=== PATIENT | female | born 1950 | race Caucasian/White ===

== ENCOUNTER 2016-09-21 06:50 | Day surgery (SDC) | payer OTHER ==
[2016-09-21 08:32] LABS: APTT 27.4 SEC (23.0-38.0); INR 1.07 (0.83-1.16); PROTIME(PATIENT) 13.8 SEC (12.0-15.0)
[2016-09-21] MEDS ORDERED: fentaNYL 100 MCG/2 ML INJ ONE (08:43)
[2016-09-21] MEDS ORDERED: MIDAZOLAM 2 MG/2 ML VIAL ONE (08:44)
[2016-09-21] MEDS ORDERED: IOPAMIDOL (ISOVUE-300) 100 ML BTL IV ONE (10:10)
== END 2016-09-21 11:38 | disposition home or self-care (01) ==
LOC: FIMAGING 06:50
PROVIDERS: ATTEND Radiology Diagnostic Radiology
PROC: 0FB Hepatobiliary System and Pancreas, Excision (ICD-10-PCS; principal; 2016-09-21 10:05)
DX: B19.10 Unspecified viral hepatitis B without hepatic coma (principal); K75.81 Nonalcoholic steatohepatitis (NASH); R10.84 Generalized abdominal pain
CPT/HCPCS: 36011; 37200; 75970; 76705; 99152; C1769; C1894; J1644; J2250; J3010; Q9967

== ENCOUNTER 2016-09-22 15:59 | Inpatient (IN) | payer OTHER ==
[2016-09-22] MEDS ORDERED: IOPAMIDOL (ISOVUE-370) 150 ML BTL IV ONE (16:13)
[2016-09-22 18:46] LABS: % IMMATURE GRANULYOCYTES 0.2 % (0.0-1.1); ABSOLUTE IMMATURE GRANULOCYTES 0.03 10^3/uL (0.00-0.10); ADD DIFF? NO; ADD MORPH? NO; ADD SCAN? NO; ATYPICAL LYMPHOCYTE FLAG 0 (0-99); FRAGMENT RBC FLAG 0 (0-99); HEMATOCRIT 46.2 % (38.0-47.0); HEMOGLOBIN 16.3 g/dL (12.6-16.3); LEFT SHIFT FLG 0 (0-99); LIPEMIA HEMOLYSIS FLAG 90 (0-99); MEAN CELL HEMOGLOBIN 30.8 pg (27.9-34.1); MEAN CELL HEMOGLOBIN CONCENTR. 35.3 g/dL (32.4-36.7); MEAN CELL VOLUME 87.3 fL (81.5-99.8); PLATELET CLUMPS FLAG 10 (0-99); PLATELET COUNT 195 10^3/uL (150-400); RED BLOOD CELL COUNT 5.29 10^6/uL (4.18-5.33); RED CELL DISTRIBUTION WIDTH 13.8 % (11.5-15.2)
[2016-09-22 18:58] LABS: INR 1.02 (0.83-1.16); PROTIME(PATIENT) 13.3 SEC (12.0-15.0)
[2016-09-22 18:59] LABS: APTT 24.5 SEC (23.0-38.0)
[2016-09-22] MEDS ORDERED: NS 1,000 ML IV ONE (19:02)
[2016-09-22 19:03] LABS: ALANINE AMINOTRANSFERASE 205 IU/L (9-52); ALBUMIN 4.3 g/dL (3.5-5.0); ALKALINE PHOSPHATASE 150 IU/L (38-126); ANION GAP 17 mEq/L (8-16); ASPARTATE AMINOTRANSFERASE 297 IU/L (14-46); BILIRUBIN,TOTAL 4.2 mg/dL (0.1-1.4); BILIRUBIN-CONJUGATED 3.2 mg/dL (0.0-0.5); CALCIUM 9.9 mg/dL (8.5-10.4); CARBON DIOXIDE 24 mEq/l (22-31); CHLORIDE 98 mEq/L (97-110); GLOMERULAR FILTRATION RATE 55; GLUCOSE 217 mg/dL (70-100); POTASSIUM 3.4 mEq/L (3.5-5.2); SODIUM 139 mEq/L (134-144); TOTAL PROTEIN 7.8 g/dL (6.3-8.2)
[2016-09-22] MEDS ORDERED: HYDROmorphONE/DILAUDID 1 MG/ML SYR IVP PRN ×2 (19:09→19:24)
[2016-09-22] MEDS ORDERED: NS 1,000 ML IV SCH (19:15)
[2016-09-22] MEDS ORDERED: ACETAMINOPHEN 650 MG SUPP PR PRN (19:24)
[2016-09-22] MEDS ORDERED: PROMETHAZINE HCL 25 MG/ML INJ IVP PRN (19:24)
[2016-09-22] MEDS ORDERED: D50W 25 GM/50 ML SYR IVP PRN (19:26)
[2016-09-22] MEDS ORDERED: PROTOCOL POTASSIUM 1 DOSE MISC PRN (19:26)
[2016-09-22] MEDS ORDERED: NALOXONE HCL 0.4 MG/ML INJ IVP PRN (19:59)
[2016-09-22] MEDS: HYDROmorphONE/DILAUDID 6 MG/30 ML PCA IV PRN (20:11)
--- NOTE | 2016-09-22 20:21 | GHP ---
DATE OF ADMISSION: 09/22/2016 CHIEF COMPLAINT: Abdominal pain. HISTORY: The patient is a 66-year-old female with a history of autoimmune cholangitis and hepatitis C. Dr. Calles ordered a transjugular liver biopsy which was performed yesterday by Dr. Metz. This was for routine staging of her hepatitis C. The procedure went without any complication, and she fe lt fine all the way through this morning. She ate breakfast without any difficulty. At 11 a.m. thi s morning, she developed acute onset of severe 10/10 abdominal pain. This is epigastric. It does n ot radiate to her back. It is constant and severe. She started vomiting profusely. She called [facility] and Dr. Lopez brought her in for a CT scan to rule out bleeding complication. CT was negative for any type of hematoma. He also did a CTA to rule out active hepatic bleeding o r a traumatic pseudoaneurysm. Incidentally, her CAT scan did show acute pancreatitis. At that poin t, I was contacted by Dr. Lopez to take the patient for indirect admission. When I see the patient, she is lying in bed, absolutely writhing in pain, completely miserable. Can not sit still because she is so uncomfortable. She had recently developed diarrhea, abdominal cramp ing and bloating and this was part of her workup she was pursuing with Dr. Calles. Her last Vgift copy was a few years ago. The chronic symptoms she has developed are nothing like the pain she is h aving today. PAST MEDICAL HISTORY: 1. Autoimmune cholangitis. 2. Diabetes type 2. 3. Hepatitis C acquired via blood transfusion at the time of . PAST SURGICAL HISTORY: . MEDICATIONS: Please see computer record for full detailed list. ALLERGIES: Sulfa, latex and hydrocodone. SOCIAL HISTORY: No smoking. No alcohol. She lives with her . REVIEW OF SYSTEMS: Complete review of systems obtained. Review of systems negative regarding const itutional, HEENT, GI, pulmonary, vascular, , hematology, skin, muscular, endocrine, psych, except for positives and negatives as noted in HPI. FAMILY HISTORY: Reviewed. Father of a stroke and was an alcoholic. PHYSICAL EXAMINATION: GENERAL: Well-developed well-nourished female, in severe abdominal pain. Wr ithing in the bed. VITAL SIGNS: Temperature is 36.6, pulse 59, blood pressure 163/87, saturating 9 9% on room air. EYES: Normal conjunctivae. Pupils equal and react to light. ENT: Normal ears an d nose. Hearing intact. Normal lips and teeth. Oropharynx moist. NECK: Trachea midline. No thy romegaly. CHEST: Normal respiratory effort. LUNGS: Clear to auscultation bilaterally. CARDIOVAS CULAR: Regular rate and rhythm. No murmur. No lower extremity edema. ABDOMEN: Soft, very tender in the epigastrium. No rebound or guarding. No hepatosplenomegaly. SKIN: Warm, dry, intact with out rash. MUSCULOSKELETAL: No cyanosis or clubbing. Strength 5/5 upper and lower extremities. NE URO: Cranial nerves intact. Normal sensation to light touch. PSYCH: Alert and oriented x3. Norm al mood and affect. Normal judgment. Normal memory. LABS: White count 13.02, hematocrit 46.2, platelets 195. Sodium 139, potassium 3.4, chloride 98, b icarb 24, BUN 22, creatinine 1.0, glucose 217. LFTs show a bili of 4.2, which is conjugated. AST 297. ALT is 205. Lactate 4.8. INR is 1.02. Li pase is 18,579. CT scan of the abdomen and pelvis shows acute pancreatitis. There is no subcapsular hematoma. Ther e was no pseudoaneurysm. ASSESSMENT AND PLAN: 1. Acute pancreatitis. It is unclear how this relates to her recent liver biopsy. Dr. Lopez does not think there is any correlation. I query whether she may have some postprocedural swelling in h er liver that may be causing this obstruction. She does have increased LFTs. There is no evidence of any bleeding. I will check an ultrasound to evaluate her gallbladder. Could also consider an MR CP. Will administer bowel rest, aggressive IV fluids and IV Dilaudid for pain control. 2. Autoimmune cholangitis. We will continue her Imuran and Ursodiol. 3. Hepatitis C. Liver biopsy performed yesterday, result is pending. 4. Increased lactate. I suspect hypoperfusion secondary to her pancreatitis. I do not think she i s septic. She will be hydrated relatively aggressively with IV fluids with serial lactates followed . 5. Diabetes type 2. Will place her on insulin sliding scale. CODE STATUS: Full. ADMISSION STATUS: 1. Will admit to inpatient as she is medically complex. Anticipate greater than 2 midnights. 2. DVT prophylaxis. She is high risk. I will place her on Lovenox. /[id number]/MODL
[2016-09-22] MEDS: INSULIN REGULAR HUMAN 100 UNIT/ML SC SCH (20:28)
[2016-09-22] MEDS: URSODIOL 300 MG CAP PO SCH (20:29)
[2016-09-22] MEDS ORDERED: POTASSIUM CL 10 MEQ TAB PO ONE (20:52)
[2016-09-22] MEDS ORDERED: FAMOTIDINE 20 MG/NACL 50 ML IV SCH (21:00)
[2016-09-22] MEDS: NS 1,000 ML IV SCH (21:53)
[2016-09-22 23:31] LABS: POTASSIUM 3.5 mEq/L (3.5-5.2)
[2016-09-23] MEDS: NS 1,000 ML IV SCH ×3 (03:43→20:39)
[2016-09-23 06:03] LABS: % IMMATURE GRANULYOCYTES 0.2 % (0.0-1.1); ABSOLUTE IMMATURE GRANULOCYTES 0.04 10^3/uL (0.00-0.10); ADD DIFF? NO; ADD MORPH? NO; ADD SCAN? NO; ATYPICAL LYMPHOCYTE FLAG 0 (0-99); FRAGMENT RBC FLAG 0 (0-99); HEMATOCRIT 43.6 % (38.0-47.0); HEMOGLOBIN 15.1 g/dL (12.6-16.3); LEFT SHIFT FLG 40 (0-99); LIPEMIA HEMOLYSIS FLAG 90 (0-99); MEAN CELL HEMOGLOBIN 30.6 pg (27.9-34.1); MEAN CELL HEMOGLOBIN CONCENTR. 34.6 g/dL (32.4-36.7); MEAN CELL VOLUME 88.4 fL (81.5-99.8); MEAN PLATELET VOLUME 9.7 fL (8.7-11.7); PLATELET CLUMPS FLAG 0 (0-99); PLATELET COUNT 154 10^3/uL (150-400); RED BLOOD CELL COUNT 4.93 10^6/uL (4.18-5.33); RED CELL DISTRIBUTION WIDTH 14.3 % (11.5-15.2)
[2016-09-23 06:18] LABS: ALANINE AMINOTRANSFERASE 171 IU/L (9-52); ALBUMIN 3.6 g/dL (3.5-5.0); ALKALINE PHOSPHATASE 109 IU/L (38-126); ANION GAP 12 mEq/L (8-16); ASPARTATE AMINOTRANSFERASE 242 IU/L (14-46); BILIRUBIN,TOTAL 5.1 mg/dL (0.1-1.4); BILIRUBIN-CONJUGATED 4.2 mg/dL (0.0-0.5); BILIRUBIN-UNCONJUGATED 0.9 mg/dL (0.0-1.1); CALCIUM 7.3 mg/dL (8.5-10.4); CARBON DIOXIDE 24 mEq/l (22-31); CHLORIDE 109 mEq/L (97-110); GLOMERULAR FILTRATION RATE 55; GLUCOSE 199 mg/dL (70-100); SODIUM 145 mEq/L (134-144); TOTAL PROTEIN 6.8 g/dL (6.3-8.2)
[2016-09-23] MEDS ORDERED: ENOXAPARIN 40 MG/0.4 ML SYR SC SCH (09:00)
[2016-09-23] MEDS: HYDROmorphONE/DILAUDID 6 MG/30 ML PCA IV PRN (09:04)
[2016-09-23] MEDS: URSODIOL 300 MG CAP PO SCH ×3 (09:07→20:42)
[2016-09-23] MEDS: azaTHIOprine 50 MG TAB PO SCH (09:07)
[2016-09-23] MEDS: PANTOPRAZOLE SODIUM 40 MG in NS 100 ML IV SCH (09:07)
[2016-09-23] MEDS: INSULIN REGULAR HUMAN 100 UNIT/ML SC SCH ×3 (09:32→18:21)
[2016-09-23] MEDS ORDERED: GADOBUTROL 10 ML VIAL IVP ONE (09:45)
--- NOTE | 2016-09-23 17:57 | HOSPPROG ---
Hospitalist Progress Note Assessment/Plan: Acute pancreatitis - bilirubin to 5.1, no CBD dilation or e/o obstruction on MRI. She had a nl u/s day of liver biopsy without gallstones, but now has ? sludge in GB on MR. Query hemobilia s/p liver biopsy which may have made it's way into CBD and contributed to pancreatits. No etoh hx. +h/o autoimmune cholangitis, seems unlikely this would flare acutely after liver biopsy. No fevers. However, rising wbc's, will cover with Zosyn for now. GI consulted, Dr. Contreras to see pt tomorrow. Continue NPO, IVF's, pain control. Check TG's in am, trend LFT's. Autoimmune cholangitis - this might increase her risk for autoimmune pancreatitis, though it seems that is usually a chronic scenario. Cont Imuran and Ursodiol. Await further GI recs. Hep C - acquired during blood transfusion during C-S. Followed by Dr. Solorio. DM - bg's fairly well controlled. Glyburide held while NPO, cont q6h SSI. 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 Also, suspect VIRA as she snores and has daytime somnolence. Needs outpt sleep study. DVT PPLX- Lovenox Full code Dispo - cont inpt Subjective: Pt feels a bit better, pain finally controlled. No N/V today. No fevers. She is thirsty, remains NPO. She c/o daytime somnolence and snoring before this event. Objective: Vital Signs Temp Pulse Resp BP Pulse Ox 36.8 C 103 H 16 118/70 92 09/23/16 16:00 09/23/16 16:00 09/23/16 16:00 09/23/16 16:00 09/23/16 16:00 Laboratory Results 09/23/16 05:38 09/23/16 05:38 09/22/16 09/23/16 09/24/16 05:59 05:59 05:59 Intake Total 2412 Output Total 400 Balance -400 2412 PT 13.3 SEC (12.0-15.0) 09/22/16 18:35 INR 1.02 (0.83-1.16) 09/22/16 18:35 - Physical Exam Constitutional: no apparent distress Eyes: PERRL Ears, Nose, Mouth, Throat: moist mucous membranes Cardiovascular: regular rate and rhythym Respiratory: no respiratory distress, clear to auscultation (+epigastric and RUQ tenderness with voluntary guarding, no rigidity) Gastrointestinal: normoactive bowel sounds Skin: warm Musculoskeletal: full muscle strength Neurologic: AAOx3 Psychiatric: interacting appropriately ICD10 Worksheet Patient Problems: Problems Problem Status Onset Pancreatitis Acute - ICD10 Problem Qualifiers (1) Pancreatitis Qualifiers: Chronicity: acute Pancreatitis type: unspecified pancreatitis type Acute pancreatitis complication: A
[2016-09-23] MEDS: PIPERACILLIN/TAZO 3.375 GM/DEX 50 ML IV SCH (18:14)
[2016-09-23 19:50] LABS: POTASSIUM 4.5 mEq/L (3.5-5.2)
[2016-09-24] MEDS: INSULIN REGULAR HUMAN 100 UNIT/ML SC SCH ×5 (00:10→21:01)
[2016-09-24] MEDS: PIPERACILLIN/TAZO 3.375 GM/DEX 50 ML IV SCH ×3 (00:30→14:27)
[2016-09-24] MEDS: NS 1,000 ML IV SCH ×2 (03:14→19:36)
[2016-09-24] MEDS: HYDROmorphONE/DILAUDID 6 MG/30 ML PCA IV PRN ×2 (03:46→16:29)
[2016-09-24 06:07] LABS: ALANINE AMINOTRANSFERASE 108 IU/L (9-52); ALBUMIN 2.8 g/dL (3.5-5.0); ALKALINE PHOSPHATASE 57 IU/L (38-126); ANION GAP 10 mEq/L (8-16); ASPARTATE AMINOTRANSFERASE 183 IU/L (14-46); BILIRUBIN,TOTAL 7.7 mg/dL (0.1-1.4); CARBON DIOXIDE 18 mEq/l (22-31); CHLORIDE 113 mEq/L (97-110); CREATININE 2.2 mg/dL (0.6-1.0); GLOMERULAR FILTRATION RATE 22; GLUCOSE 206 mg/dL (70-100); POTASSIUM 4.2 mEq/L (3.5-5.2); SODIUM 141 mEq/L (134-144); TOTAL PROTEIN 5.8 g/dL (6.3-8.2); TRIGLYCERIDE 197 mg/dL (35-135)
[2016-09-24 06:08] LABS: ADD DIFF? YES; ADD MORPH? NO; ATYPICAL LYMPHOCYTE FLAG 0 (0-99); FRAGMENT RBC FLAG 0 (0-99); HEMATOCRIT 38.1 % (38.0-47.0); HEMOGLOBIN 12.8 g/dL (12.6-16.3); LIPEMIA HEMOLYSIS FLAG 80 (0-99); MEAN CELL HEMOGLOBIN 30.8 pg (27.9-34.1); MEAN CELL HEMOGLOBIN CONCENTR. 33.6 g/dL (32.4-36.7); MEAN CELL VOLUME 91.8 fL (81.5-99.8); MEAN PLATELET VOLUME 10.3 fL (8.7-11.7); PLATELET CLUMPS FLAG 0 (0-99); PLATELET COUNT 131 10^3/uL (150-400); RED BLOOD CELL COUNT 4.15 10^6/uL (4.18-5.33); RED CELL DISTRIBUTION WIDTH 15.6 % (11.5-15.2)
[2016-09-24 06:11] LABS: ADD SCAN? NO; LEFT SHIFT FLG 270 (0-99)
[2016-09-24 06:12] LABS: CALCIUM 4.2 mg/dL (8.5-10.4)
[2016-09-24 06:38] LABS: BILIRUBIN-CONJUGATED 6.9 mg/dL (0.0-0.5); BILIRUBIN-UNCONJUGATED 0.8 mg/dL (0.0-1.1)
[2016-09-24] MEDS ORDERED: PROTOCOL CALCIUM 1 DOSE IV PRN (07:05)
[2016-09-24 07:23] LABS: PLATELET ESTIMATE DECREASED (ADEQ); POLYCHROMASIA 1+
[2016-09-24 08:29] LABS: IONIZED CALCIUM 0.63 MMOL/L (1.12-1.30)
[2016-09-24] MEDS ORDERED: CALCIUM GLUCONATE 2 GM in NS 50 ML IV ONE ×3 (08:35→22:16)
[2016-09-24] MEDS: URSODIOL 300 MG CAP PO SCH ×2 (08:56→21:07)
[2016-09-24] MEDS: PANTOPRAZOLE SODIUM 40 MG in NS 100 ML IV SCH (08:58)
[2016-09-24] MEDS: azaTHIOprine 50 MG TAB PO SCH ×2 (09:05→09:32)
[2016-09-24] MEDS ORDERED: NS 1,000 ML IV ONE (10:09)
--- NOTE | 2016-09-24 10:15 | HOSPPROG ---
Hospitalist Progress Note Assessment/Plan: Acute pancreatitis - bili continues to rise, up to 7.7, no CBD dilation or e/o obstruction on MRI. Stat MRCP this am. She had a nl u/s day of liver biopsy without gallstones, but now has ?sludge in GB on MR. Query hemobilia s/p liver biopsy which may have made it's way into CBD and contributed to pancreatitis. No etoh hx. TG's okay. +h/o autoimmune cholangitis, seems unlikely this would flare acutely after liver biopsy. No fevers. However, rising wbc's, continue Zosyn. GI consulted, discussed case with Dr. Contreras. Continue NPO, IVF's, pain control. Cont to trend LFT's. ANISH - Cr up to 2.2 ?pre-renal vs ATN. She is 5 liters positive, will bolus again and increase fluid rate to 250/hr. Cont NS bolus to achieve UOP >0.5 cc's /kg/hr. Check urine studies to calculate FeNa. Autoimmune cholangitis - this might increase her risk for autoimmune pancreatitis, though it seems that is usually a chronic scenario. Hold Imuran for now as can cause pancreatitis in 2.8% of pts per GI. Hep C - acquired during blood transfusion during C-S. Followed by Dr. Solorio. DM - bg's fairly well controlled. Glyburide held while NPO, cont q6h SSI. 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 Also, suspect VIRA as she snores and has daytime somnolence. Needs outpt sleep study. Personally reviewed CXR yesterday, no e/o pulmonary edema or infiltrate. +underexpansion and linear atelectasis, start IS. Hypocalcemia - Ca dropped precipitously, IV calcium gluconate started, protocol ordered. Transfer to SDU, telemetry. DVT PPLX- Change to heparin given ANISH Full code Dispo - cont inpt Objective: Vital Signs Temp Pulse Resp BP Pulse Ox 36.6 C 101 H 18 109/66 91 L 09/24/16 07:39 09/24/16 07:39 09/24/16 07:39 09/24/16 07:39 09/24/16 07:39 Laboratory Results 09/24/16 05:41 09/24/16 05:41 09/23/16 09/24/16 09/25/16 05:59 05:59 05:59 Intake Total 5857 Output Total 400 400 Balance -400 5457 PT 13.3 SEC (12.0-15.0) 09/22/16 18:35 INR 1.02 (0.83-1.16) 09/22/16 18:35 - Physical Exam Constitutional: no apparent distress Eyes: PERRL Ears, Nose, Mouth, Throat: moist mucous membranes Cardiovascular: tachycardia Respiratory: no respiratory distress, clear to auscultation Gastrointestinal: other (soft, mild distention, +epigastric and RUQ tenderness without r/r/g) Skin: warm Musculoskeletal: full muscle strength Neurologic: AAOx3 Psychiatric: interacting appropriately ICD10 Worksheet Patient Problems: Problems Problem Status Onset Pancreatitis Acute - ICD10 Problem Qualifiers (1) Pancreatitis Qualifiers: Chronicity: acute Pancreatitis type: unspecified pancreatitis type Acute pancreatitis complication: A
--- NOTE | 2016-09-24 10:31 | GCON ---
GI INPATIENT CONSULTATION DATE OF CONSULTATION: 09/24/2016 I was kindly requested to see this patient by Dr. Tana Velasco in consultation for a chief complaint of pancreatitis. She is a 66-year-old white female who underwent a transjugular liver biopsy by Dr. Sahara Metz on September 20, 2016. She developed significant epigastric abdominal pain and presented to the emergency department. She describes the pain as severe, constant. There was some vomiting involved initially. She has a past history of autoimmune disease of the liver. She believes it is autoimmune cholangitis, and indeed, several of her initial notes by her quarter backer, Dr. Carlos Calles, mention this as well. Then, Dr. Calles's future notes actually state autoimmune hepatitis, but it is unclear if this is the case. She also has hepatic steatosis. She was last seen by Dr. Calles on September 04, 2016. Because of continued abnormal liver tests, the above biopsy was ordered. For the above problem, she has been on azathioprine 50 mg daily for many years, dating back even before 2012. Today, she states she is feeling somewhat better, in terms of her abdominal pain. PAST MEDICAL HISTORY: 1. As above. 2. Diabetes mellitus. 3. Some past mention of possible gastroparesis, where Reglan as needed helped. 4. Otherwise, noncontributory in pay. MEDICATIONS: Outpatient medications include the above. Inpatient medications include Ursodiol, Imuran, insulin, Zosyn, IV fluids, potassium protocol, pantoprazole 40 mg IV daily. ALLERGIES: Include sulfa, latex and hydrocodone. SOCIAL HISTORY: She denies alcohol. FAMILY HISTORY: Negative for similar abdominal pain. REVIEW OF SYSTEMS: Positive pertinent review of systems as per my HPI; otherwise, a complete review of systems is negative. PHYSICAL EXAM: CONSTITUTIONAL: Relatively nontoxic. SKIN: Warm, dry. EYES: Pupils equal, round, reactive to light and accommodation. ENMT: Oropharynx without masses. Moist mucosa. CARDIOVASCULAR: Normal S2. Normal PMI. RESPIRATORY: Clear to auscultation and percussion anteriorly. GASTROINTESTINAL : The abdomen is soft with some epigastric tenderness, but only moderate. NEUROLOGIC: Grossly nonfocal, with cranial nerves grossly intact. PSYCHIATRIC : Orientation, insight appropriate. MUSCULOSKELETAL: Strength is grossly normal throughout, with normal station. LABORATORIES: Baseline AST and ALT of 115 and 105, with an alkaline phosphatase of 139. This was on August 31, 2016. Now on her liver tests, her bilirubin has been increasing from 5.1 yesterday to 7.7. Alkaline phosphatase was 150 on admission, but now normal. AST and ALT yesterday were 242 and 171. Lipase on admission 18,000 and then 12,000, and today 6605. Creatinine has increased to 2.2. Calcium is decreased to 4.2. Glucose 206. White count has gone from 13,000 to 17,000 to 27,000 today. Normal coags. Liver biopsy pathology pending. Triglycerides 197. Further prior outpatient labs include an EARNESTINE and antismooth muscle antibody that were negative. H pylori antibody negative. In 2008, hepatitis C antibody negative. IMAGING: Ultrasound prior to liver biopsy was normal. MRI of the abdomen was performed yesterday, but no MRCP component was done. The MRI shows now a filling defect in the gallbladder. The intra and extrahepatic biliary ducts are essentially normal. There is a possible linear finding seen in the common bile duct. Diffuse pancreatitis. Fatty liver. September 22, 2016 CT of the abdomen and pelvis with IV contrast did not show obvious liver bleeding. ASSESSMENT: 1. Pancreatitis. Although her lipase is better today, some other worrisome signs, which may speak for a continued severe systemic process. This includes a drop in her calcium, increase in her creatinine, some increase in her oxygen requirements and increased bilirubin. In terms of etiology for her pancreatitis, with the temporal relationship of a transjugular liver biopsy just prior, suspect hemobilia. This would also potentially explain why the gallbladder was normal on a prebiopsy ultrasound, but now shows a filling defect on MRI (which could represent some blood). Other possibilities for pancreatitis are much less likely. If her chronic diagnosis is indeed autoimmune cholangitis, there can sometimes be associated autoimmune pancreatitis. However, her MRI findings of a diffuse pancreatitis would be atypical for this. Azathioprine can cause pancreatitis, but this would also be less likely, as she has been on this for many, many years. Doubt another type of cause, such as common bile duct stone missed on imaging. 2. Autoimmune cholangitis versus autoimmune hepatitis. 3. Of note, there is mention in the chart about her being hepatitis C positive. However, I see no mention of that in any of Dr. Clales's notes, including his most recent note in August. In 2008, hepatitis C antibody was negative. PLAN: 1. Stat MRCP to see if hemobilia present in the common bile duct. 2. Will stop her azathioprine, although unlikely to be the culprit. 3. Will check an IgG4, but doubt autoimmune pancreatitis. 4. I will discuss the above with her hospitalist. With some worsening signs of pancreatitis, she might require transfer to telemetry or ICU. Further management of her increased creatinine, low calcium, oxygen needs, etc., as per the hospitalist. 5. If her MRCP is negative, she might require empiric IV steroids for the remote possibility of autoimmune pancreatitis. If that were the case, she would require more aggressive control of her diabetes, as per the hospitalist. 6. Decisions about whether she will require urgent ERCP for therapy will depend on her MRCP result, clinical status, etc. Certainly, it would be high risk to perform in the midst of significant pancreatitis. With her lipase now decreasing, it would also potentially not be beneficial. Thank you for allowing me to help in the management of this patient. Addendum: MRCP without obvious cbd filling defects (although some motion artifact); ducts without change. Hemobilia as the original cause is still most likely. However, with these findings, and the severity of her pancreatitis , will empirically treat her for now with I.V. steroids for possible autoimmune pancreatitis. With her DM, she will require more aggressive control of her glucose levels (as per the hospitalist service). /[id number]/MODL MTDD
[2016-09-24] MEDS: HEPARIN 5,000 UNIT/0.5 ML SYR SC SCH ×3 (10:52→22:43)
[2016-09-24] MEDS ORDERED: methylPREDNISolone SOD SUCC 40 MG/ML VIAL IVP STA (11:53)
[2016-09-24] MEDS: PIPERACILLIN/TAZO 2.25 GM/DEX 50 ML IV SCH ×2 (17:48→23:28)
[2016-09-24 18:12] LABS: IONIZED CALCIUM 0.65 MMOL/L (1.12-1.30)
[2016-09-24] MEDS ORDERED: ALTEPLASE 2 MG VIAL IVP PRN (18:13)
[2016-09-24 18:24] LABS: ANION GAP 11 mEq/L (8-16); CARBON DIOXIDE 16 mEq/l (22-31); CHLORIDE 110 mEq/L (97-110); CREATININE 3.3 mg/dL (0.6-1.0); GLOMERULAR FILTRATION RATE 14; GLUCOSE 178 mg/dL (70-100); POTASSIUM 4.9 mEq/L (3.5-5.2); SODIUM 137 mEq/L (134-144)
[2016-09-24 18:28] LABS: CALCIUM 4.1 mg/dL (8.5-10.4)
[2016-09-24] MEDS: methylPREDNISolone SOD SUCC 40 MG/ML VIAL IVP SCH (21:04)
[2016-09-24 22:15] LABS: IONIZED CALCIUM 0.67 MMOL/L (1.12-1.30)
[2016-09-25] MEDS ORDERED: ALBUTEROL 3 ML DEYVIAL ONE (01:21)
[2016-09-25] MEDS: NS 1,000 ML IV SCH ×2 (02:10→19:30)
[2016-09-25] MEDS ORDERED: CALCIUM GLUCONATE 2 GM in NS 50 ML IV ONE ×6 (02:22→22:27)
[2016-09-25 05:05] LABS: ADD DIFF? YES; ADD MORPH? NO; ATYPICAL LYMPHOCYTE FLAG 0 (0-99); FRAGMENT RBC FLAG 0 (0-99); HEMATOCRIT 33.3 % (38.0-47.0); LIPEMIA HEMOLYSIS FLAG 80 (0-99); MEAN CELL HEMOGLOBIN 30.8 pg (27.9-34.1); MEAN CELL VOLUME 93.3 fL (81.5-99.8); MEAN PLATELET VOLUME 10.8 fL (8.7-11.7); PLATELET CLUMPS FLAG 10 (0-99); PLATELET COUNT 118 10^3/uL (150-400); RED BLOOD CELL COUNT 3.57 10^6/uL (4.18-5.33); RED CELL DISTRIBUTION WIDTH 15.8 % (11.5-15.2)
[2016-09-25 05:13] LABS: ADD SCAN? NO; LEFT SHIFT FLG 290 (0-99)
[2016-09-25 05:23] LABS: ALANINE AMINOTRANSFERASE 87 IU/L (9-52); ALBUMIN 2.6 g/dL (3.5-5.0); ALKALINE PHOSPHATASE 41 IU/L (38-126); ANION GAP 13 mEq/L (8-16); ASPARTATE AMINOTRANSFERASE 140 IU/L (14-46); BILIRUBIN,TOTAL 4.6 mg/dL (0.1-1.4); CARBON DIOXIDE 15 mEq/l (22-31); CHLORIDE 111 mEq/L (97-110); CREATININE 4.2 mg/dL (0.6-1.0); GLOMERULAR FILTRATION RATE 11; GLUCOSE 141 mg/dL (70-100); POTASSIUM 4.5 mEq/L (3.5-5.2); SODIUM 139 mEq/L (134-144); TOTAL PROTEIN 5.4 g/dL (6.3-8.2)
[2016-09-25] MEDS: PIPERACILLIN/TAZO 2.25 GM/DEX 50 ML IV SCH ×4 (05:31→23:53)
[2016-09-25 05:46] LABS: MACROCYTES 1+; PLATELET ESTIMATE DECREASED (ADEQ)
[2016-09-25 05:47] LABS: POLYCHROMASIA 1+
[2016-09-25 06:10] LABS: BILIRUBIN-CONJUGATED 4.2 mg/dL (0.0-0.5); BILIRUBIN-UNCONJUGATED 0.4 mg/dL (0.0-1.1)
[2016-09-25] MEDS: IPRATROPIUM/ALBUTEROL 3 ML DEYVIAL IH SCH ×4 (06:20→22:15)
[2016-09-25 06:35] LABS: IONIZED CALCIUM 0.71 MMOL/L (1.12-1.30)
[2016-09-25 06:47] LABS: IONIZED CALCIUM 0.69 MMOL/L (1.12-1.30)
[2016-09-25] MEDS: HEPARIN 5,000 UNIT/0.5 ML SYR SC SCH ×3 (06:47→21:34)
[2016-09-25] MEDS: INSULIN REGULAR HUMAN 100 UNIT/ML SC SCH ×4 (07:51→20:16)
[2016-09-25] MEDS: methylPREDNISolone SOD SUCC 40 MG/ML VIAL IVP SCH ×2 (08:49→21:33)
[2016-09-25] MEDS: PANTOPRAZOLE SODIUM 40 MG in NS 100 ML IV SCH (09:26)
[2016-09-25] MEDS ORDERED: LIDOCAINE 1% 30 ML SDV ONE (09:50)
[2016-09-25] MEDS ORDERED: HEPARIN 50,000 UNIT/10 ML VIAL ONE (09:50)
[2016-09-25 10:12] LABS: IONIZED CALCIUM 0.78 MMOL/L (1.12-1.30)
--- NOTE | 2016-09-25 10:13 | SOAPPROG ---
THOMAS Progress Note Assessment/Plan: Assessment: 1. Pancreatitis. Improving, with decreased lipase, less pain. - cont NPO except for now; maybe can start clears tomorrow - recheck lipase AM - decrease empiric 'roids - no ERCP needed at this juncture - recheck LFTs tomorrow 2. Systemic sequelae from the above. Somewhat better, with decreased wbc count , etc. However, Cr increased. - recommend renal consult 3. Increased Cr. Plan: 09/25/16 10:10 Objective: Vital Signs Temp Pulse Resp BP Pulse Ox 36.7 C 92 22 H 106/49 L 93 09/25/16 07:40 09/25/16 07:40 09/25/16 07:40 09/25/16 07:40 09/25/16 07:40 Laboratory Results 09/25/16 04:20 09/25/16 04:20 09/24/16 09/25/16 09/26/16 05:59 05:59 05:59 Intake Total 5857 3006 Output Total 400 275 Balance 5457 6131 PT 13.3 SEC (12.0-15.0) 09/22/16 18:35 INR 1.02 (0.83-1.16) 09/22/16 18:35 ICD10 Worksheet Patient Problems: Problems Problem Status Onset Pancreatitis Acute
--- NOTE | 2016-09-25 10:19 | SOAPPROG ---
SOAP Progress Note Assessment/Plan: Assessment/Plan: 1. Pancreatitis. Improving, with decreased lipase, less pain. - cont NPO except for sips, etc., for now; maybe can start clears tomorrow - recheck lipase AM - decrease empiric 'roids - no ERCP needed at this juncture - recheck LFTs tomorrow 2. Systemic sequelae from the above. Somewhat better, with decreased wbc count , etc. However, Cr increased. - recommend renal consult 3. Of note, she does not have hepatitis C (or B). Please remove from her problem list. 09/25/16 10:16 Subjective: cc: pancreatitis Pain less than yesterday, but still "410". No vomiting, rigors, chills. Objective: Vital Signs Temp Pulse Resp BP Pulse Ox 36.7 C 92 22 H 106/49 L 93 09/25/16 07:40 09/25/16 07:40 09/25/16 07:40 09/25/16 07:40 09/25/16 07:40 Laboratory Results 09/25/16 04:20 09/25/16 04:20 09/24/16 09/25/16 09/26/16 05:59 05:59 05:59 Intake Total 5857 3006 Output Total 400 275 Balance 5457 2731 PT 13.3 SEC (12.0-15.0) 09/22/16 18:35 INR 1.02 (0.83-1.16) 09/22/16 18:35 IgG4 pending Liver bx pathology pending Physical Exam - Physical Exam General Appearance: WD/WN, alert, no apparent distress EENT: PERRL/EOMI, normal ENT inspection, pharynx normal, TMs normal Neck: non-tender, full range of motion, supple, normal inspection Respiratory: chest non-tender, lungs clear, normal breath sounds Cardiac/Chest: normal peripheral pulses, regular rate, rhythm Peripheral Pulses: 2+: carotid (R), carotid (L), femoral (R), femoral (L), dorsalis-pedis (R), dorsalis-pedis (L) Abdomen: normal bowel sounds, soft, No non-tender (Mild to moderate epigastric tenderness.) Pelvic Exam: deferred Rectal: deferred Back: Normal inspection Skin: normal color, warm/dry Lymphatic: no adenopathy Extremities: normal range of motion, non-tender, normal inspection, normal capillary refill Neuro/Psych: no motor/sensory deficits, alert, normal mood/affect, oriented x 3 ICD10 Worksheet Patient Problems: Problems Problem Status Onset Pancreatitis Acute
[2016-09-25] MEDS: URSODIOL 300 MG CAP PO SCH (10:57)
--- NOTE | 2016-09-25 11:21 | POSTOPPROG ---
Post Op Note Date of Operation: 09/25/16 Surgeon: Thierno Lopez Anesthesia: Local (Specify) Pre-op Diagnosis: Pancreatitis, renal failure Post-op Diagnosis: same Indication: same, and poor peripheral veins Procedure: 1. PICC 2. Temporary right jugular dialysis catheter Findings: good positions. 12 F Mahurkar dialysis catheter and PICC are ready to use. Inf/Abcess present in the surg proc area at time of surgery?: No
--- NOTE | 2016-09-25 12:28 | HOSPPROG ---
Hospitalist Progress Note Assessment/Plan: Acute severe pancreatitis - Precipitous Ca drop poor prognostic indicator, though improving now. Bili trending down, no CBD obstruction on MRCP, possible hemobilia vs clot in GB. She had a nl u/s day of liver biopsy without gallstones. Query hemobilia s/p liver biopsy which may have made it's way into CBD and contributed to pancreatitis. No etoh hx. TG's okay. +h/o autoimmune cholangitis, on steroids. No fevers. Continue Zosyn. GI following. Continue NPO, IVF's, pain control. Cont to trend LFT's. ANISH - Cr up to 4.5, FeNa 0.04%, suggesting poor perfusion / ATN in setting of severe pancreatitis. Aggressive volume resuscitation initially, though she has poor uop and is 3rd spacing, with O2 requirement up to 10 LPM yesterday. Renal consulted last night, dialysis catheter planned for today. Discussed case with Dr. Best, holding off on dialysis today, will attempt more fluids and reassess tomorrow. Metabolic acidosis in setting of ANISH - dialysis planned, defer bicarb to avoid worsening her hypocalcemia. Autoimmune cholangitis - this might increase her risk for autoimmune pancreatitis, though it seems that is usually a chronic scenario. Hold Imuran for now as can cause pancreatitis in 2.8% of pts per GI. Empiric steroids started per GI. DM - bg's fairly well controlled. Glyburide held while NPO, cont q6h SSI. May need to up-titrate on steroids. Hypoxemia - O2 requirement down to 5 LPM from 10 LPM yesterday. Likely multifactorial: aggressive volume overload in setting of severe pancreatitis, possible VIRA, opiate use, splinting due to abdominal pain. Needs outpt sleep study. Personally reviewed CXR this am, no e/o pulmonary edema or infiltrate. +underexpansion and linear atelectasis, cont IS, prn nebs. Hypocalcemia - frequent checks and Ca gluconate replacement, slowly improving. DVT PPLX- [facility] Full code Dispo - cont inpt Subjective: Pt feels a bit better today. More conversive, less pain. No fevers. No N/V. UOP improved a little, but still poor. Objective: Vital Signs Temp Pulse Resp BP Pulse Ox 37.0 C 92 24 H 109/55 L 92 03/07/17 11:40 09/25/16 11:40 09/25/16 11:40 09/25/16 11:40 09/25/16 11:40 Laboratory Results 09/25/16 04:20 09/25/16 04:20 09/24/16 09/25/16 09/26/16 05:59 05:59 05:59 Intake Total 5857 3006 Output Total 400 275 Balance 5457 2731 PT 13.3 SEC (12.0-15.0) 09/22/16 18:35 INR 1.02 (0.83-1.16) 09/22/16 18:35 - Physical Exam Constitutional: no apparent distress Eyes: PERRL Ears, Nose, Mouth, Throat: moist mucous membranes Cardiovascular: regular rate and rhythym Respiratory: no respiratory distress, other (bibasilar faint crackles, decreased air exchange, poor inspiratory effort) Gastrointestinal: normoactive bowel sounds, tenderness Skin: warm Musculoskeletal: full muscle strength Neurologic: AAOx3 Psychiatric: interacting appropriately ICD10 Worksheet Patient Problems: Problems Problem Status Onset Pancreatitis Acute - ICD10 Problem Qualifiers (1) Pancreatitis Qualifiers: Chronicity: acute Pancreatitis type: unspecified pancreatitis type Acute pancreatitis complication: A
[2016-09-25 14:16] LABS: IONIZED CALCIUM 0.79 MMOL/L (1.12-1.30)
[2016-09-25] MEDS: HYDROmorphONE/DILAUDID 6 MG/30 ML PCA IV PRN (15:02)
[2016-09-25] MEDS: diphenhydrAMINE 25 MG CAP PO PRN ×2 (15:20→21:32)
--- NOTE | 2016-09-25 17:57 | GCON ---
PULMONARY CRITICAL CARE CONSULTATION. DATE OF CONSULTATION: 09/25/2016 REASON FOR CONSULTATION: Intensive care unit evaluation and management of pancreatitis and acute re nal failure. HISTORY: The patient is a very pleasant 66-year-old, who was admitted 3 days ago with pancreatitis, presenting with abdominal pain. The day before the procedure, she had a liver biopsy done via a tr ansjugular approach which went well. Approximately 24 hours later, she began to develop epigastric abdominal pain with associated vomiting. She came back to Radiology where a CT scan of the abdomen was done, looking for a hematoma related liver biopsy. This was negative. However, acute pancreati tis was noted. She was admitted to the hospital for further care. Her subsequent course has been c omplicated by rapidly increasing BUN and creatinine. She has been seen by Gastroenterology. MRCP e valuation was essentially negative except for some evidence of hemobilia and clot in her gallbladder . Bilateral pleural effusions and some ascites were noted. A PICC line has been placed. She also had a dialysis catheter placed as her BUN has risen to 56 and her creatinine to 4.2 from normal valu es of 20 and 1.0 on admission. She was moved to the intensive care unit for further care as a step- down patient. PAST MEDICAL HISTORY: Remarkable for type 2 diabetes, autoimmune cholangitis and hepatitis C. She is status post . There is a history of hypertension. MEDICATIONS PRIOR TO ADMISSION: Included ursodiol, Zoloft, Amaryl, potassium, lisinopril/hydrochlor othiazide, Nexium, and Imuran. DRUG ALLERGIES: Hydrocodone, sulfa preparations, latex. SOCIAL HISTORY: The patient is with a supportive family. Alcohol and tobacco are negative. FAMILY HISTORY: Noncontributory/negative. REVIEW OF SYSTEMS: A 10-point review of system was negative. There is no history of heart disease, lung disease, previous renal disease, previous issues with pancreatitis, etc. PHYSICAL EXAMINATION: GENERAL: Reveals a pleasant woman who is somewhat stocky and overweight, sit ting comfortably in a chair. Oxygen is in place on 4 L, saturations 94%. Blood pressure is 110/55, heart rate 92 with sinus rhythm on the monitor. She is afebrile. Respiratory rate is 18. HEENT: Unremarkable for lymphadenopathy or thyromegaly. There is no obvious jugular venous distention. N daniela cannula oxygen is in place. PULMONARY: The chest reveals diminished breath sounds at the base s. There are no rales. There may be some mild dullness. There are no rhonchi, no wheezes, althoug h some wheezes apparently were heard earlier. HEART: Regular in rate and rhythm. Heart tones are distant. ABDOMEN: Quiet and tender, somewhat distended. A Zamora catheter is in place. Urine outp ut is decreased. EXTREMITIES: Remarkable for trace plus edema. NEUROLOGIC: Examination is intact . Mentation is intact. DATABASE/RADIOLOGIC STUDIES: As outlined above. Chest x-ray reveals only hypoventilatory changes w ith retrocardiac atelectasis or infiltrate. Small effusions are present. LABORATORY: White blood cell count is 22,300, hematocrit 33, down from 46 on admission. Platelets are 118,000. PT and PTT are normal. Lactate is 2.0, down from 4.8. Sodium is 139, potassium 4.5, CO2 15, BUN 56 with a creatinine of 4.2. Glucose is 141. Calcium and ionized calcium were signific antly decreased. Bilirubin is 4.6 with an AST of 140 and ALT of 87. Lipase is 2208. ASSESSMENT: 1. Acute pancreatitis. The relationship to the liver biopsy is unclear; however, the temporal asso ciation is suggestive of a possible related effect. Query bleeding into the biliary tract, temporar norman obstructing pancreatic drainage? Other causes are possible but seem less likely. Implicated me dications could include hydrochlorothiazide, Imuran, etc. The patient's presentation was complicate d initially by significant pain. This has largely resolved. Hypocalcemia has been an issue as well . She is on replacement protocols. 2. Hypoxemia secondary to #1, improving. There is evidence of hypoventilation as well as some smal l pleural effusions and atelectasis. There is no evidence of pneumonia. 3. Acute renal failure secondary to #1. With 3rd spacing from her pancreatitis, she likely has had decreased renal perfusion. Renal consultation has been obtained. Dialysis catheter has been place d and hemodialysis is being considered. 4. History of autoimmune cholangitis. 5. History of diabetes mellitus. She is on sliding scale coverage. 6. Gastrointestinal prophylaxis. She is on pantoprazole as she is n.p.o. 7. Deep vein thrombosis prophylaxis: On subcutaneous heparin. 8. Infectious Disease. Blood cultures have been obtained. She has been empirically given Zosyn fo r possible infectious cholangitis. PLAN AND RECOMMENDATIONS: The patient will be kept in the intensive care unit. Intravenous fluids will be continued but given more judiciously. Calcium will be followed along with other chemistries , CBC, etc. Current medications will be continued. Pain control will be maintained. Chest x-ray w ill be followed. Further plans and recommendations will be made based on her progress over the next 12-24 hours. /[id number]/MODL
[2016-09-25 17:58] LABS: IONIZED CALCIUM 0.81 MMOL/L (1.12-1.30)
[2016-09-25] MEDS ORDERED: NS BOLUS 500 ML (Wide open) IV ONE (18:30)
[2016-09-25 18:33] LABS: POTASSIUM 4.6 mEq/L (3.5-5.2)
--- NOTE | 2016-09-25 20:12 | GCON ---
NEPHROLOGY CONSULTATION. DATE OF CONSULTATION: 09/25/2016 REASON FOR CONSULTATION: Acute renal failure. HISTORY OF PRESENT ILLNESS: I have been asked to evaluate Ms. Tafoya regarding her acute renal failu re. She is a 66-year-old woman with a history of diabetes and hypertension as well as longstanding LFT abnormalities. She underwent a liver biopsy on the . Two days later, she presented with exc ruciating abdominal pain and was diagnosed with acute pancreatitis. Her lipase was initially 18,000 but has decreased to 2200 today. Her baseline creatinine is normal and was 1.0 on admission. She did undergo a CT with contrast on the , but her creatinine the following morning remained 1.0. O n the , she began having issues with borderline hypotension with frequent systolic readings in . Yesterday, her creatinine increased to 2.2 and this morning, it is 4.2. Her serum potassium is normal, though she has developed metabolic acidosis. She has been having issues with hypocalcem ia, and this has been replaced. She was on IV fluid resuscitation; however, had increased O2 requir ements to as high as 10 L late yesterday. This has subsequently decreased to 3 L currently with the use of breathing treatments. A chest x-ray this morning demonstrated low lung volumes but no real evidence of significant volume overload. IV fluids have currently been minimized. Her urine output today has only been 175 cc thus far. She denies any urgent sensation of incomplete voiding, but awan s not yet been bladder scanned. Urine chemistries sent yesterday morning showed a random urine sodi um of 6 with a random urine creatinine of 211. Her abdominal pain has improved, and she is likely g oing to be started on clears tomorrow. She has no history of prior renal disease including nephroli thiasis or frequent urinary tract infections. PAST MEDICAL HISTORY: 1. Longstanding type 2 diabetes mellitus and hypertension, on lisinopril chronically. 2. Elevated liver enzymes on and off for 30 years, status post recent liver biopsy. 3. Osteoarthritis. PAST SURGICAL HISTORY: 1. Rotator cuff repair. 2. Multiple knee arthroscopies. 3. C sections. ALLERGIES: Sulfa, latex and hydrocodone. CURRENT MEDICATIONS: She is receiving normal saline at 25 cc per hour. Other medications include h eparin 5000 units subcutaneous q.8 hours, methylprednisolone 20 mg IV q.12 hours, Protonix 40 mg IV daily, Zosyn q.6 hours, ursodiol 600 mg q.a.m. and 300 mg q.p.m. She has been receiving frequent do ses of calcium gluconate on an as needed basis. SOCIAL HISTORY: She is a [place] and is a retired associate accountant. She is a nonsmoker, nondrink er. FAMILY HISTORY: No family history of renal disease that she is aware of. REVIEW OF SYSTEMS: Positive for abdominal pain, nausea and vomiting on admission. Positive for abd ominal fullness currently. Aside from other positives noted in the HPI, the remainder of a 10 organ system review is negative. PHYSICAL EXAMINATION: GENERAL: She is in no acute distress. VITAL SIGNS: Blood pressure is 110/5 5, heart rate is 92, oxygenation is 94% on 3L by nasal cannula. I's and O's over the past 24 hours are 3000 cc in and 275 cc of urine out. HEENT: Sclerae are anicteric. Oral mucosa is moist. Orop harynx is difficult to visualize. NECK: Supple without JVD or lymphadenopathy. There are no carot id bruits. Temporary dialysis catheter is present in the right internal jugular vein. HEART: Regu lar rate and rhythm; no murmurs, gallops or rubs. LUNGS: Clear to auscultation bilaterally. I do not appreciate any crackles or wheezes. BACK: No CVA tenderness. ABDOMEN: Obese with hypoactive bowel sounds. It is slightly tender to palpation diffusely, but there is no rebound tenderness. I cannot appreciate hepatosplenomegaly, mass or bruits. EXTREMITIES: She does have some trace edema in the lower extremities bilaterally. Her feet are warm and pedal pulses are easily palpable. SKIN : There are no skin rashes. There is no mottling. NEUROLOGIC: She is awake, alert and appropriat e. There is no facial droop. : Zamora catheter is absent. LABORATORY DATA: Sodium 139, potassium 4.5, chloride 111, CO2 15, BUN 56, creatinine 4.2, glucose 1 41, calcium 5, ionized calcium was 0.79. Albumin is 2.6, total protein 5.4. Phosphorus yesterday w as 3.1. White blood cell count is 22.4, hemoglobin 11, platelets 118. INR is 1.0. IMPRESSION AND PLAN: 1. Acute renal failure. She had severely prerenal urinary indices yesterday. This is most likely from hypotension and 3rd spacing, though may have been exacerbated by IV contrast administration on the 4th. Her urine output has dropped off dramatically and her creatinine has been rising for the p ast 24-48 hours. She has a metabolic acidosis and hypocalcemia, but clinically appears quite well a nd her potassium is normal. Her oxygen requirements have decreased considerably over the past 24 ho urs with the use of nebulizers. She does not appear particularly overloaded, and I think it would b e worth attempting more aggressive IV fluid therapy for the next 12 hours or so. Certainly, if her renal function does not begin to turn around in the next 12 hours, she will likely require dialysis tomorrow morning. Interventional Radiology was kind enough to place a temporary dialysis catheter e mounika today. I did discuss the pros and cons of acute dialysis, and she does wish to proceed if ne eded. I would continue to hold her lisinopril and also avoid any additional imaging studies utilizi ng IV contrast unless absolutely necessary. I would have a very low threshold to place a Zamora cath eter for more accurate recording of ins and outs, though she appears relatively well and I think is not having any issues with missed urine output. 2. Pancreatitis. This appears to be improving, and she appears relatively well on exam. Mainly fo r this reason, I would like to try holding off on dialysis for another 12 hours, as this should also improve with her overall clinical status. 3. Hypocalcemia. This has been improving with replacement. I would continue this. She does not a ppear to be symptomatic. 4. Metabolic acidosis. This has developed in concert with her acute renal failure, and if these is sues continue to worsen tomorrow, she will likely require dialysis. For now, I would hold off on so dium bicarbonate supplementation as this would only worsen her hypocalcemia. Thank you for the consultation. We will follow with you. /[id number]/MODL
[2016-09-25 22:24] LABS: IONIZED CALCIUM 0.88 MMOL/L (1.12-1.30)
[2016-09-25] MEDS: LORazepam 2 MG/ML INJ IVP PRN (22:58)
[2016-09-26 02:23] LABS: IONIZED CALCIUM 0.89 MMOL/L (1.12-1.30)
[2016-09-26] MEDS ORDERED: CALCIUM GLUCONATE 2 GM in NS 50 ML IV ONE ×3 (02:26→10:02)
[2016-09-26] MEDS: PIPERACILLIN/TAZO 2.25 GM/DEX 50 ML IV SCH ×2 (05:09→14:39)
[2016-09-26 05:18] LABS: % IMMATURE GRANULYOCYTES 1.7 % (0.0-1.1); ABSOLUTE NRBC COUNT 0.02 10^3/uL (0-0.01); ADD DIFF? NO; ADD MORPH? NO; ADD SCAN? YES; ATYPICAL LYMPHOCYTE FLAG 0 (0-99); FRAGMENT RBC FLAG 0 (0-99); HEMATOCRIT 30.3 % (38.0-47.0); HEMOGLOBIN 10.1 g/dL (12.6-16.3); LIPEMIA HEMOLYSIS FLAG 80 (0-99); MEAN CELL HEMOGLOBIN 30.7 pg (27.9-34.1); MEAN CELL HEMOGLOBIN CONCENTR. 33.3 g/dL (32.4-36.7); MEAN CELL VOLUME 92.1 fL (81.5-99.8); MEAN PLATELET VOLUME 10.3 fL (8.7-11.7); NRBC-AUTO% 0.1 % (0.0-0.2); PLATELET CLUMPS FLAG 0 (0-99); PLATELET COUNT 127 10^3/uL (150-400); RED BLOOD CELL COUNT 3.29 10^6/uL (4.18-5.33); RED CELL DISTRIBUTION WIDTH 16.1 % (11.5-15.2)
[2016-09-26 05:30] LABS: LEFT SHIFT FLG 260 (0-99)
[2016-09-26 05:41] LABS: ALANINE AMINOTRANSFERASE 70 IU/L (9-52); ALBUMIN 2.6 g/dL (3.5-5.0); ALKALINE PHOSPHATASE 36 IU/L (38-126); ANION GAP 17 mEq/L (8-16); ASPARTATE AMINOTRANSFERASE 83 IU/L (14-46); BILIRUBIN,TOTAL 3.1 mg/dL (0.1-1.4); CALCIUM 6.3 mg/dL (8.5-10.4); CARBON DIOXIDE 12 mEq/l (22-31); CHLORIDE 110 mEq/L (97-110); CREATININE 6.3 mg/dL (0.6-1.0); GLOMERULAR FILTRATION RATE 7; GLUCOSE 168 mg/dL (70-100); POTASSIUM 4.9 mEq/L (3.5-5.2); SODIUM 139 mEq/L (134-144); TOTAL PROTEIN 5.5 g/dL (6.3-8.2)
[2016-09-26 05:47] LABS: SCAN NEGATIVE
[2016-09-26] MEDS: HEPARIN 5,000 UNIT/0.5 ML SYR SC SCH ×3 (05:58→20:58)
[2016-09-26 06:04] LABS: BILIRUBIN-CONJUGATED 2.9 mg/dL (0.0-0.5); BILIRUBIN-UNCONJUGATED 0.2 mg/dL (0.0-1.1)
[2016-09-26 07:08] LABS: IONIZED CALCIUM 0.89 MMOL/L (1.12-1.30)
[2016-09-26] MEDS: IPRATROPIUM/ALBUTEROL 3 ML DEYVIAL IH SCH ×3 (08:23→14:21)
[2016-09-26] MEDS: HYDROmorphONE/DILAUDID 6 MG/30 ML PCA IV PRN (08:30)
[2016-09-26] MEDS: NS 1,000 ML IV SCH ×2 (08:31→20:38)
--- NOTE | 2016-09-26 09:12 | SOAPPROG ---
SOAP Progress Note Assessment/Plan: Assessment:Plan: ARF-oliguric ATN -increased BUN overnite with 175 UO -dialysis ordered -stable on dialysis today -plan on Hd again tomorrow with likely every other day therapy while she remains oliguric Access-temp R IJ in place Edema-no ultrafiltration today -will UF tomorrow as needed Pancreatitis-supportive care 09/26/16 09:13 Subjective: stable on dialysis, generalized malaise Objective: Vital Signs Temp Pulse Resp BP Pulse Ox 36.4 C 92 26 H 127/63 H 96 09/26/16 08:00 09/26/16 08:00 09/26/16 08:00 09/26/16 08:00 09/26/16 04:00 Laboratory Results 09/26/16 05:00 09/26/16 05:00 09/25/16 09/26/16 09/27/16 05:59 05:59 05:59 Intake Total 3006 2145 Output Total 275 175 Balance 2731 1970 PT 13.3 SEC (12.0-15.0) 09/22/16 18:35 INR 1.02 (0.83-1.16) 09/22/16 18:35 Physical Exam - Physical Exam General Appearance: alert, mild distress EENT: normal ENT inspection Neck: normal inspection Respiratory: decreased breath sounds Cardiac/Chest: regular rate, rhythm Abdomen: normal bowel sounds, No non-tender Extremities: swelling (1+) ICD10 Worksheet Patient Problems: Problems Problem Status Onset Pancreatitis Acute
[2016-09-26] MEDS: LORazepam 2 MG/ML INJ IVP PRN (09:36)
--- NOTE | 2016-09-26 10:41 | SOAPPROG ---
SOAP Progress Note Assessment/Plan: Assessment/Plan: 1. Pancreatitis. Improving, with decreased lipase, less pain, decreased bilirubin. - clears - stop empiric steroids - stop empiric 'biot - recheck TB in A.M., but suspect will continue to improve. 2. Systemic sequelae from the above. Better, with decreased wbc count, O2 requirement, etc. 3. ARF. As per renal. 4. Of note, she does not have hepatitis C (or B). I informed pathologist, so they can amend their pathology report. 09/26/16 10:37 Subjective: cc: pancreatitis Lethargic, from ativan. Anxious. Less abdominal pain. No rigors, chills, sweats. Objective: Vital Signs Temp Pulse Resp BP Pulse Ox 36.4 C 92 26 H 127/63 H 96 09/26/16 08:00 09/26/16 08:00 09/26/16 08:00 09/26/16 08:00 09/26/16 04:00 Laboratory Results 09/26/16 05:00 09/26/16 05:00 09/25/16 09/26/16 09/27/16 05:59 05:59 05:59 Intake Total 3006 2145 Output Total 275 175 Balance 2731 1970 PT 13.3 SEC (12.0-15.0) 09/22/16 18:35 INR 1.02 (0.83-1.16) 09/22/16 18:35 IgG4 pending, but suspect will be negative. Lipase 679 TB decreased to 3.1. Liver bx with moderate steatosis, periportal eosinophilic infiltrate (mgmt of this result, as well as her chronic liver disease, will be as per Dr. Calles, on an outpt. basis). Physical Exam - Physical Exam General Appearance: WD/WN, no apparent distress, No alert (lethargic) EENT: PERRL/EOMI, normal ENT inspection, pharynx normal, TMs normal Neck: non-tender, full range of motion, supple, normal inspection Respiratory: chest non-tender, lungs clear, normal breath sounds Cardiac/Chest: normal peripheral pulses, regular rate, rhythm Peripheral Pulses: 2+: carotid (R), carotid (L), femoral (R), femoral (L), dorsalis-pedis (R), dorsalis-pedis (L) Abdomen: normal bowel sounds, non-tender, soft Pelvic Exam: deferred Rectal: deferred Back: Normal inspection Skin: normal color, warm/dry Lymphatic: no adenopathy Extremities: normal range of motion, non-tender, normal inspection, normal capillary refill Neuro/Psych: no motor/sensory deficits, alert, normal mood/affect, oriented x 3 ICD10 Worksheet Patient Problems: Problems Problem Status Onset Pancreatitis Acute
[2016-09-26] MEDS: INSULIN REGULAR HUMAN 100 UNIT/ML SC SCH ×4 (11:38→21:06)
[2016-09-26] MEDS: methylPREDNISolone SOD SUCC 40 MG/ML VIAL IVP SCH (12:00)
[2016-09-26] MEDS: PANTOPRAZOLE SODIUM 40 MG in NS 100 ML IV SCH ×2 (14:39→20:58)
[2016-09-26] MEDS ORDERED: CEPACOL LOZENGE PO PRN (18:09)
--- NOTE | 2016-09-26 18:14 | PDINTPN ---
Acid Remover Progress Note Assessment/Plan: Assessment: Acute pancreatitis. Hypocalcemia secondary to the above. On replacement q.6 hours. Acute renal failure, status post hemodialysis today. Secondary to pancreatitis , volume shifts Cough. New today. Secondary to throat irritation and some bronchial congestion , basilar atelectasis. On nebulized treatments. Metabolic: Diabetes with hyperglycemia. On appropriate sliding scale coverage. DVT prophylaxis: On subcu heparin GI prophylaxis: Will change to IV pantoprazole Plan: Continue care in the intensive care unit. Continue nebulized treatments. Try lozenges for cough. Continue narcotics/pain control. For repeat hemodialysis in the a.m. with fluid removal. Follow calcium and replace per protocols.. Subjective: Coughing this afternoon. More comfortable with this. Abdominal pain and fullness seem to be a littlle better. Objective: Vital Signs Temp Pulse Resp BP Pulse Ox 36.9 C 88 19 123/56 H 96 09/26/16 16:00 09/26/16 16:00 09/26/16 16:00 09/26/16 16:00 09/26/16 16:00 Laboratory Results 09/26/16 05:00 09/26/16 05:00 09/25/16 09/26/16 09/27/16 05:59 05:59 05:59 Intake Total 3006 2145 Output Total 275 175 75 Balance 2731 1970 - PT 13.3 SEC (12.0-15.0) 09/22/16 18:35 INR 1.02 (0.83-1.16) 09/22/16 18:35 Laboratory Tests 09/26/16 09/26/16 05:00 06:53 Ionized Calcium 0.89 L Total Bilirubin 3.1 H Conjugated Bilirubin 2.9 H AST 83 H ALT 70 H Albumin 2.6 L Lipase 679.0 H CXR: Left basilar atelectasis or consolidation. Hypoventilatory change. Physical Exam - Physical Exam General Appearance: alert, mild distress, obese, other (Intermittent coughing) EENT: other (Nasal cannula at 3 L) Neck: normal inspection (Large neck, no obvious JVD) Respiratory: lungs clear (Anteriorly), decreased breath sounds (And excursions) , wheezing, No rales, No rhonchi (Some central congestion with cough) Cardiac/Chest: regular rate, rhythm Abdomen: distended, No normal bowel sounds (Significantly decreased), No non- tender (Mild tenderness) Pelvic Exam: other (Decreased urine output, using urinal) Back: Normal inspection Skin: normal color, warm/dry Extremities: pedal edema (Trace +) Neuro/Psych: no motor/sensory deficits, No cognition abnormalities ICD10 Worksheet Patient Problems: Problems Problem Status Onset Pancreatitis Acute
--- NOTE | 2016-09-26 18:40 | HOSPPROG ---
Hospitalist Progress Note Assessment/Plan: Assessment: 66-year-old female presents with acute pancreatitis Plan: 1. Acute severe pancreatitis. Unclear etiology, occurred s/p liver bx, elevated lipase and abd pain - NPO, IVF, pain control - appreciate GI consult - stop Zosyn 2. ANISH. 2/2 ATN in setting of hypoperfusion from acute pancreatitis, did not improve w/ volume resuscitation - HD today, fatigued 3. Metabolic acidosis. Acute, in setting of ANISH 4. Autoimmune cholangitis. Chronic, this might increase her risk for autoimmune pancreatitis, hold Imuran for now as can cause pancreatitis - reducing steroids 5. Acute reactive airway exacerbation. Cough + diffuse expiratory wheezes, no tob hx or hx of COPD - start on scheduled duonebs, currently on steroids for above 6. DM. Glyburide held while NPO, cont q6h SSI 7. Atelectasis. On CXR (personally interpreted), w/ hypoxemia - IS 8. Hypocalcemia. 2/2 pancreatitis, q6h replacement Diet. NPO PPx. Hep SC Code. Full Dispo. ADD uncertain, pending stabilization of above, get PT/OT assessments Subjective: fatigued s/p HD Objective: Vital Signs Temp Pulse Resp BP Pulse Ox 36.9 C 88 19 123/56 H 96 09/26/16 16:00 09/26/16 16:00 09/26/16 16:00 09/26/16 16:00 09/26/16 16:00 Laboratory Results 09/26/16 05:00 09/26/16 05:00 09/25/16 09/26/16 09/27/16 05:59 05:59 05:59 Intake Total 3006 2145 Output Total 275 175 75 Balance 2731 1970 - PT 13.3 SEC (12.0-15.0) 09/22/16 18:35 INR 1.02 (0.83-1.16) 09/22/16 18:35 - Physical Exam Constitutional: no apparent distress, appears nourished, uncomfortable, No not in pain (mild) Cardiovascular: regular rate and rhythym, no murmur, rub, or gallop, edema ( Trace bilateral lower extremity edema), other (Distant heart sounds) Respiratory: expiratory wheeze, bronchial breath sounds, No reduced air movement , No inspiratory crackles Gastrointestinal: normoactive bowel sounds, tenderness (Midepigastric area), guarding (Voluntary in the mid epigastric area), No distension Neurologic: AAOx3, sensation intact bilaterally, No weakness (Motor 5/5 bilateral lower extremity) Psychiatric: not anxious, not encephalopathic, flat affect, No agitated ICD10 Worksheet Patient Problems: Problems Problem Status Onset Pancreatitis Acute
[2016-09-26 18:41] LABS: IONIZED CALCIUM 0.93 MMOL/L (1.12-1.30)
[2016-09-26 18:52] LABS: POTASSIUM 3.6 mEq/L (3.5-5.2)
[2016-09-26] MEDS ORDERED: HEPARIN 50,000 UNIT/10 ML VIAL ONE (18:57)
[2016-09-26] MEDS ORDERED: CALCIUM GLUCONATE 50 ML IV ONE (21:23)
[2016-09-27] MEDS: IPRATROPIUM/ALBUTEROL 3 ML DEYVIAL IH SCH ×4 (00:33→17:55)
[2016-09-27] MEDS: LORazepam 2 MG/ML INJ IVP PRN (05:26)
[2016-09-27] MEDS: HEPARIN 5,000 UNIT/0.5 ML SYR SC SCH ×3 (05:27→20:39)
[2016-09-27] MEDS: POTASSIUM Cl (KCl) 50 ML IV SCH ×3 (05:44→14:36)
[2016-09-27 05:53] LABS: ABSOLUTE NRBC COUNT 0.04 10^3/uL (0-0.01); ADD DIFF? YES; ADD MORPH? NO; ATYPICAL LYMPHOCYTE FLAG 30 (0-99); FRAGMENT RBC FLAG 0 (0-99); HEMATOCRIT 30.1 % (38.0-47.0); HEMOGLOBIN 10.5 g/dL (12.6-16.3); LIPEMIA HEMOLYSIS FLAG 90 (0-99); MEAN CELL HEMOGLOBIN 30.7 pg (27.9-34.1); MEAN CELL HEMOGLOBIN CONCENTR. 34.9 g/dL (32.4-36.7); MEAN PLATELET VOLUME 10.3 fL (8.7-11.7); NRBC-AUTO% 0.3 % (0.0-0.2); PLATELET CLUMPS FLAG 10 (0-99); PLATELET COUNT 118 10^3/uL (150-400); RED BLOOD CELL COUNT 3.42 10^6/uL (4.18-5.33); RED CELL DISTRIBUTION WIDTH 15.1 % (11.5-15.2)
[2016-09-27 05:56] LABS: ADD SCAN? NO; LEFT SHIFT FLG 280 (0-99)
[2016-09-27 06:13] LABS: ALANINE AMINOTRANSFERASE 68 IU/L (9-52); ALBUMIN 2.6 g/dL (3.5-5.0); ALKALINE PHOSPHATASE 47 IU/L (38-126); ANION GAP 14 mEq/L (8-16); ASPARTATE AMINOTRANSFERASE 74 IU/L (14-46); BILIRUBIN,TOTAL 2.6 mg/dL (0.1-1.4); CALCIUM 6.4 mg/dL (8.5-10.4); CARBON DIOXIDE 18 mEq/l (22-31); CHLORIDE 105 mEq/L (97-110); CREATININE 4.8 mg/dL (0.6-1.0); GLOMERULAR FILTRATION RATE 9; GLUCOSE 115 mg/dL (70-100); POTASSIUM 3.5 mEq/L (3.5-5.2); SODIUM 137 mEq/L (134-144); TOTAL PROTEIN 5.4 g/dL (6.3-8.2)
[2016-09-27 06:21] LABS: BILIRUBIN-CONJUGATED 2.3 mg/dL (0.0-0.5); BILIRUBIN-UNCONJUGATED 0.3 mg/dL (0.0-1.1)
[2016-09-27 06:50] LABS: PLATELET ESTIMATE DECREASED (ADEQ)
[2016-09-27 06:51] LABS: SCHISTOCYTES 1+
[2016-09-27 06:52] LABS: MICROCYTES 1+; POLYCHROMASIA 1+
[2016-09-27] MEDS ORDERED: CALCIUM GLUCONATE 50 ML IV ONE ×2 (07:08→21:00)
[2016-09-27] MEDS: INSULIN REGULAR HUMAN 100 UNIT/ML SC SCH ×4 (07:57→20:50)
[2016-09-27] MEDS: HYDROmorphONE/DILAUDID 6 MG/30 ML PCA IV PRN (08:25)
[2016-09-27] MEDS: PANTOPRAZOLE SODIUM 40 MG in NS 100 ML IV SCH (08:26)
[2016-09-27] MEDS ORDERED: PANTOPRAZOLE SODIUM 40 MG TAB PO SCH (09:00)
--- NOTE | 2016-09-27 10:20 | SOAPPROG ---
SOAP Progress Note Assessment/Plan: Assessment:Plan: ARF-oliguric ATN -remains azotemic -425 UO -dialysis later today -plan on Hd again tomorrow with likely observation over weekend if urine output continues to increase -daily therapy while she remains oliguric Access-temp R IJ in place Edema-ultrafiltration today -will UF tomorrow as needed -IVF stopped Pancreatitis-supportive care 09/27/16 10:17 Subjective: anxious, in pain, had bad night Objective: Vital Signs Temp Pulse Resp BP Pulse Ox 36.5 C 100 15 142/69 H 98 09/27/16 07:43 09/27/16 07:43 09/27/16 07:43 09/27/16 07:43 09/27/16 07:43 Laboratory Results 09/27/16 05:35 09/27/16 05:35 09/26/16 09/27/16 09/28/16 05:59 05:59 05:59 Intake Total 2145 1950 Output Total 175 425 Balance 1970 1525 PT 13.3 SEC (12.0-15.0) 09/22/16 18:35 INR 1.02 (0.83-1.16) 09/22/16 18:35 Physical Exam - Physical Exam General Appearance: alert, mild distress EENT: normal ENT inspection Neck: normal inspection Respiratory: decreased breath sounds, No respiratory distress Cardiac/Chest: regular rate, rhythm, systolic murmur Abdomen: normal bowel sounds, No non-tender Extremities: swelling (into sacrum) ICD10 Worksheet Patient Problems: Problems Problem Status Onset Pancreatitis Acute
[2016-09-27 14:24] LABS: HEPATITIS Bs Ab QUANT <5.0 mIU/mL
--- NOTE | 2016-09-27 14:30 | SOAPPROG ---
SOAP Progress Note Assessment/Plan: Assessment:Plan: ARF-Stable on dialysis -plan for dialysis again tomorrow -tolerating UF 09/27/16 14:29 Objective: Vital Signs Temp Pulse Resp BP Pulse Ox 36.4 C 96 21 H 141/70 H 98 09/27/16 12:00 09/27/16 12:00 09/27/16 12:00 09/27/16 12:00 09/27/16 12:00 Laboratory Results 09/27/16 05:35 09/27/16 05:35 09/26/16 09/27/16 09/28/16 05:59 05:59 05:59 Intake Total 2145 1950 Output Total 175 425 Balance 1970 1525 PT 13.3 SEC (12.0-15.0) 09/22/16 18:35 INR 1.02 (0.83-1.16) 09/22/16 18:35 ICD10 Worksheet Patient Problems: Problems Problem Status Onset Pancreatitis Acute
--- NOTE | 2016-09-27 16:55 | PDINTPN ---
Rn Diabetes Educator Progress Note Assessment/Plan: Assessment: Acute pancreatitis. Hypocalcemia secondary to the above. On replacement q.6 hours. Acute renal failure, status post hemodialysis again today. Secondary to pancreatitis, volume shifts Cough. Secondary to throat irritation/bronchial congestion, basilar atelectasis. On nebulized treatments. Metabolic: Diabetes with hyperglycemia. On appropriate sliding scale coverage. DVT prophylaxis: On subcu heparin GI prophylaxis: Will change to IV pantoprazole Confusion: Multifactorial. Secondary to medications in toxic metabolic issues related to her pancreatitis and renal failure. Plan: Continue care in the intensive care unit. Continue nebulized treatments , lozenges for cough. Continue narcotics/pain control. Hemodialysis in the a.m. with fluid removal per Renal. Follow calcium and replace per protocols.. Subjective: Abdominal discomfort, restless, confused at times Objective: Vital Signs Temp Pulse Resp BP Pulse Ox 36.6 C 87 16 144/69 H 100 09/27/16 15:54 09/27/16 15:54 09/27/16 15:54 09/27/16 15:54 09/27/16 15:54 Laboratory Results 09/27/16 05:35 09/27/16 05:35 09/26/16 09/27/16 09/28/16 05:59 05:59 05:59 Intake Total 2145 1950 Output Total 175 425 Balance 1970 1525 PT 13.3 SEC (12.0-15.0) 09/22/16 18:35 INR 1.02 (0.83-1.16) 09/22/16 18:35 Laboratory Tests 09/27/16 05:35 Calcium 6.4 L Total Bilirubin 2.6 H Conjugated Bilirubin 2.3 H AST 74 H ALT 68 H Albumin 2.6 L Physical Exam - Physical Exam General Appearance: mild distress, obese EENT: other (Nasal cannula 4 L) Neck: normal inspection (, negative DVT) Respiratory: lungs clear (Anteriorly), decreased breath sounds (At bases with some bibasilar rales, bronchial changes) Cardiac/Chest: regular rate, rhythm (Distant heart tones) Abdomen: distended, No normal bowel sounds (Abdomen tender, distended, decreased bowel tones), No non-tender, No soft Pelvic Exam: other (Urine output approximately 400 last 24 hours) Skin: normal color, warm/dry Extremities: pedal edema Neuro/Psych: no motor/sensory deficits, No cognition abnormalities (Confused at times) ICD10 Worksheet Patient Problems: Problems Problem Status Onset Pancreatitis Acute
--- NOTE | 2016-09-27 18:15 | HOSPPROG ---
Hospitalist Progress Note Assessment/Plan: INTERVAL SUMMARY & DAILY PROGRESS NOTE DATE OF ADMISSION: INTERVAL DIAGNOSES 1. Acute severe pancreatitis 2. Acute kidney injury 3. Acute metabolic acidosis 4. Chronic autoimmune cholangitis 5. Acute reactive airway exacerbation 6. Diabetes mellitus type 2 7. Atelectasis 8. Severe hypocalcemia CONSULTATIONS Pulmonary Critical Care, Gastroenterology, Interventional Radiology PROCEDURES / IMAGING 09/25/2016 liver biopsy, PICC line placement CHIEF COMPLAINT Acute abdominal pain SUBJECTIVE Patient is having a difficult time getting comfortable HOSPITAL COURSE BY PROBLEM Patient presented with acute pancreatitis in the setting of a liver biopsy but no other identifiable etiology. Her pancreatitis has been quite severe and she continues to receive pain control via HAND WEAVER, NPO. She developed acute kidney injury resulting in acute tubular necrosis requiring hemodialysis. She is currently having a very difficult time getting comfortable. Assessment: 66-year-old female presents with acute pancreatitis Plan: 1. Acute severe pancreatitis. Unclear etiology, occurred s/p liver bx, elevated lipase and abd pain - NPO, pain control via HAND WEAVER - appreciate GI consult - stopped Zosyn - if requires additional Rx overnight, give precedex 2. ANISH. 2/2 ATN in setting of hypoperfusion from acute pancreatitis, did not improve w/ volume resuscitation - HD today again today w/ volume removal, fatigued - remains hypervolemic 3. Metabolic acidosis. Acute, in setting of ANISH 4. Autoimmune cholangitis. Chronic, this might increase her risk for autoimmune pancreatitis, hold Imuran for now as can cause pancreatitis - s/p steroids 5. Acute reactive airway exacerbation. Cough + diffuse expiratory wheezes, no tob hx or hx of COPD - cont on scheduled duonebs, improving 6. DM. Glyburide held while NPO, cont q6h SSI 7. Atelectasis. On CXR (personally interpreted), w/ hypoxemia - IS 8. Hypocalcemia. 2/2 pancreatitis, q6h replacement Diet. Adv liq per GI PPx. Hep SC Code. Full Dispo. ADD uncertain, pending stabilization of above, get PT/OT assessments Subjective: Patient had a difficult night secondary to the inability to get comfortable Objective: Vital Signs Temp Pulse Resp BP Pulse Ox 36.6 C 87 16 144/69 H 100 09/27/16 15:54 09/27/16 15:54 09/27/16 15:54 09/27/16 15:54 09/27/16 15:54 Laboratory Results 09/27/16 05:35 09/27/16 05:35 09/26/16 09/27/16 09/28/16 05:59 05:59 05:59 Intake Total 2145 1950 Output Total 175 425 Balance 1970 1525 PT 13.3 SEC (12.0-15.0) 09/22/16 18:35 INR 1.02 (0.83-1.16) 09/22/16 18:35 - Physical Exam Constitutional: chronically ill appearing, obese, uncomfortable, No not in pain Cardiovascular: edema (1+ bilateral lower extremities), No systolic murmur, No irregularly irregular, No tachycardia Respiratory: inspiratory crackles (Bilateral bases), No reduced air movement, No expiratory wheeze, No bronchial breath sounds Gastrointestinal: tenderness (Midepigastric), distension (Mild to moderate), No normoactive bowel sounds (Hypoactive bowel sounds), No guarding Skin: no rashes or abrasions, no fluctuance, no induration Neurologic: sensation intact bilaterally, other (Alert awake oriented x2 to person and place not to time), No weakness (Motor strength 5/5 bilaterally), No facial droop Psychiatric: anxious, flat affect, other (Lethargic but arousable), No agitated ICD10 Worksheet Patient Problems: Problems Problem Status Onset Pancreatitis Acute
[2016-09-27 18:32] LABS: IONIZED CALCIUM 0.98 MMOL/L (1.12-1.30)
[2016-09-27 19:00] LABS: POTASSIUM 3.8 mEq/L (3.5-5.2)
--- NOTE | 2016-09-27 20:44 | SOAPPROG ---
SOAP Progress Note Assessment/Plan: Assessment/Plan: 1. Pancreatitis. Continues to improve, with decreased bilirubin, wbc. However , still complains of pain. Hard to tell exactly if this is related to pancreatitis or not. Normal IgG4, so doubt autoimmune pancreatitis. - continue just clears for now - recheck TB, lipase, pain level in A.M., but suspect will continue to improve. If so, will advance diet tomorrow. 2. Systemic sequelae from the above. Better, with decreased wbc count, O2 requirement, etc. 3. ARF. As per renal. 09/27/16 20:41 Subjective: cc: pancreatitis Still complains of abdominal pain, being "uncomfortable." No rigors, chills, sweats. Objective: Vital Signs Temp Pulse Resp BP Pulse Ox 36.6 C 87 16 144/69 H 100 09/27/16 15:54 09/27/16 15:54 09/27/16 15:54 09/27/16 15:54 09/27/16 15:54 Laboratory Results 09/27/16 05:35 09/27/16 18:25 09/26/16 09/27/16 09/28/16 05:59 05:59 05:59 Intake Total 2145 1950 640 Output Total 175 425 125 Balance 1970 1525 515 PT 13.3 SEC (12.0-15.0) 09/22/16 18:35 INR 1.02 (0.83-1.16) 09/22/16 18:35 IgG4 normal. TB down to 2.6. Physical Exam - Physical Exam General Appearance: WD/WN, alert, no apparent distress EENT: PERRL/EOMI, normal ENT inspection, pharynx normal, TMs normal Neck: non-tender, full range of motion, supple, normal inspection Respiratory: chest non-tender, lungs clear, normal breath sounds Cardiac/Chest: normal peripheral pulses, regular rate, rhythm Peripheral Pulses: 2+: carotid (R), carotid (L), femoral (R), femoral (L), dorsalis-pedis (R), dorsalis-pedis (L) Abdomen: normal bowel sounds, non-tender, soft Pelvic Exam: deferred Rectal: deferred Back: Normal inspection Skin: normal color, warm/dry Lymphatic: no adenopathy Extremities: normal range of motion, non-tender, normal inspection, normal capillary refill Neuro/Psych: no motor/sensory deficits, alert, normal mood/affect, oriented x 3 ICD10 Worksheet Patient Problems: Problems Problem Status Onset Pancreatitis Acute
[2016-09-27] MEDS ORDERED: POTASSIUM CL 10 MEQ TAB PO ONE (21:13)
[2016-09-27] MEDS: DEXMEDETOMIDINE HCL 400 MCG in NS 100 ML IV SCH (21:48)
[2016-09-28] MEDS: IPRATROPIUM/ALBUTEROL 3 ML DEYVIAL IH SCH ×4 (00:07→17:36)
[2016-09-28 04:22] LABS: IONIZED CALCIUM 1.04 MMOL/L (1.12-1.30)
[2016-09-28] MEDS ORDERED: CALCIUM GLUCONATE 50 ML IV ONE ×2 (04:30→07:46)
[2016-09-28 04:42] LABS: ABSOLUTE NRBC COUNT 0.05 10^3/uL (0-0.01); ADD DIFF? YES; ADD MORPH? NO; ATYPICAL LYMPHOCYTE FLAG 40 (0-99); FRAGMENT RBC FLAG 0 (0-99); HEMOGLOBIN 9.5 g/dL (12.6-16.3); LIPEMIA HEMOLYSIS FLAG 90 (0-99); MEAN CELL HEMOGLOBIN 30.4 pg (27.9-34.1); MEAN CELL HEMOGLOBIN CONCENTR. 35.2 g/dL (32.4-36.7); MEAN CELL VOLUME 86.3 fL (81.5-99.8); MEAN PLATELET VOLUME 10.9 fL (8.7-11.7); NRBC-AUTO% 0.3 % (0.0-0.2); PLATELET CLUMPS FLAG 0 (0-99); PLATELET COUNT 101 10^3/uL (150-400); RED BLOOD CELL COUNT 3.13 10^6/uL (4.18-5.33); RED CELL DISTRIBUTION WIDTH 15.2 % (11.5-15.2)
[2016-09-28 04:44] LABS: ALANINE AMINOTRANSFERASE 57 IU/L (9-52); ALBUMIN 2.2 g/dL (3.5-5.0); ALKALINE PHOSPHATASE 47 IU/L (38-126); ANION GAP 12 mEq/L (8-16); ASPARTATE AMINOTRANSFERASE 57 IU/L (14-46); BILIRUBIN,TOTAL 1.8 mg/dL (0.1-1.4); BILIRUBIN-CONJUGATED 1.7 mg/dL (0.0-0.5); BILIRUBIN-UNCONJUGATED 0.1 mg/dL (0.0-1.1); CALCIUM 6.9 mg/dL (8.5-10.4); CARBON DIOXIDE 18 mEq/l (22-31); CHLORIDE 101 mEq/L (97-110); CREATININE 3.7 mg/dL (0.6-1.0); GLOMERULAR FILTRATION RATE 12; GLUCOSE 123 mg/dL (70-100); MAGNESIUM 1.8 mg/dL (1.6-2.3); POTASSIUM 4.2 mEq/L (3.5-5.2); SODIUM 131 mEq/L (134-144); TOTAL PROTEIN 4.6 g/dL (6.3-8.2)
[2016-09-28] MEDS: HEPARIN 5,000 UNIT/0.5 ML SYR SC SCH ×3 (04:46→22:15)
[2016-09-28 04:49] LABS: ADD SCAN? NO; LEFT SHIFT FLG 300 (0-99)
[2016-09-28 05:34] LABS: PLATELET ESTIMATE DECREASED (ADEQ); POLYCHROMASIA 1+
[2016-09-28] MEDS: INSULIN REGULAR HUMAN 100 UNIT/ML SC SCH ×4 (07:51→20:48)
--- NOTE | 2016-09-28 10:04 | SOAPPROG ---
SOAP Progress Note Assessment/Plan: Assessment/Plan: 1. Pancreatitis. Lipase now normal, with total bilirubin almost normal, as well. - feed 2. ARF. As per renal. Else, as per hospitalist service. Upon eventual discharge, would recommend a repeat RUQ US in about three months, to make sure new filling defects seen in GB on MRI have resolved (? blood clots) . Once feeling better, and total bilirubin has totally resolved, recommend restarting outpt. azathioprine. 09/28/16 10:04 Subjective: cc: pancreatitis Lethargic, on dialysis, so hard to get an accurate history. States she "doesn' t feel well," but hard to assess exactly why, if there is any abdominal pain, etc. Abdomen nontender on deep palpation. Objective: Vital Signs Temp Pulse Resp BP Pulse Ox 36.6 C 84 24 H 109/58 L 97 09/27/16 15:54 09/28/16 07:35 09/28/16 07:35 09/28/16 07:35 09/28/16 07:35 Microbiology 09/22/16 23:10 Blood Culture - Final Blood 09/22/16 23:00 Blood Culture - Final Blood Laboratory Results 09/28/16 04:10 09/28/16 04:10 09/27/16 09/28/16 09/29/16 05:59 05:59 05:59 Intake Total 1950 946.7 Output Total 425 225 50 Balance 1525 721.7 -50 PT 13.3 SEC (12.0-15.0) 09/22/16 18:35 INR 1.02 (0.83-1.16) 09/22/16 18:35 wbc 16.7K, about the same (some elevation could be residual from recently d/c'd solumedrol). TB 1.8 lipase 131 Physical Exam - Physical Exam General Appearance: WD/WN, No alert (somewhat lethargic) EENT: PERRL/EOMI, normal ENT inspection, pharynx normal, TMs normal Neck: non-tender, full range of motion, supple, normal inspection Respiratory: chest non-tender, lungs clear, normal breath sounds Cardiac/Chest: normal peripheral pulses, regular rate, rhythm Peripheral Pulses: 2+: carotid (R), carotid (L), femoral (R), femoral (L), dorsalis-pedis (R), dorsalis-pedis (L) Abdomen: normal bowel sounds, non-tender, soft Pelvic Exam: deferred Rectal: deferred Back: Normal inspection Skin: normal color, warm/dry Lymphatic: no adenopathy Extremities: normal range of motion, non-tender, normal inspection, normal capillary refill Neuro/Psych: no motor/sensory deficits, alert, normal mood/affect, oriented x 3 ICD10 Worksheet Patient Problems: Problems Problem Status Onset Pancreatitis Acute
--- NOTE | 2016-09-28 10:20 | SOAPPROG ---
SOAP Progress Note Assessment/Plan: Assessment/Plan: ANISH: pt with oliguric ANISH in setting of pancreatitis, likely has ATN. She has some UOP but still oliguric. - Will do HD today. - Will not plan on HD tomorrow but will continue to assess her dialysis needs and monitor for recovery. - Avoid MOM, morphine, demerol, NSAIDs, contrast, aminoglycosides, fleets, and other nephrotoxins. Hypervolemia: improving with HD, will continue to modulate on HD today. Hypocalcemia: improving with HD and replacement. Metabolic acidosis: CO2 18, will modulate with HD. Subjective: No acute events overnight. Pt still mostly uncomfortable today, is feeling hot on dialysis and is a bit confused and restless. Objective: Vital Signs Temp Pulse Resp BP Pulse Ox 36.6 C 84 24 H 109/58 L 97 09/27/16 15:54 09/28/16 07:35 09/28/16 07:35 09/28/16 07:35 09/28/16 07:35 Microbiology 09/22/16 23:10 Blood Culture - Final Blood 09/22/16 23:00 Blood Culture - Final Blood Laboratory Results 09/28/16 04:10 09/28/16 04:10 09/27/16 09/28/16 09/29/16 05:59 05:59 05:59 Intake Total 1950 946.7 Output Total 425 225 50 Balance 1525 721.7 -50 PT 13.3 SEC (12.0-15.0) 09/22/16 18:35 INR 1.02 (0.83-1.16) 09/22/16 18:35 General: alert and oriented, no acute distress Eyes; EOMI, PERRL OP: Clear CV: RRR Resp: nonlabored respirations on 4L via NC Abd: Soft, distended, NT Ext: +1 edema BLE Neuro: CN II-XII grossly intact, no asterixis ICD10 Worksheet Patient Problems: Problems Problem Status Onset Pancreatitis Acute
[2016-09-28] MEDS: PANTOPRAZOLE SODIUM 40 MG TAB PO SCH (10:44)
[2016-09-28] MEDS: HYDROmorphONE/DILAUDID 6 MG/30 ML PCA IV PRN (11:59)
--- NOTE | 2016-09-28 14:18 | HOSPPROG ---
Hospitalist Progress Note Assessment/Plan: 66-year-old female presents with acute pancreatitis following liver biopsy Plan: 1. Acute severe pancreatitis. Unclear etiology, occurred s/p liver bx, elevated lipase and abd pain. does take azathioprine but has been on t for years NPO, pain control via MAINTENANCE ENGINE[employer] appreciate GI consult stopped Zosyn 2. ANISH. 2/2 ATN in setting of hypoperfusion from acute pancreatitis, did not improve w/ volume resuscitation HD today again today w/ volume removal, fatigued remains hypervolemic 3. Metabolic acidosis. Acute, in setting of ANISH 4. Autoimmune cholangitis. Chronic, this might increase her risk for autoimmune pancreatitis, hold Imuran for now as can cause pancreatitis s/p steroids 5. Acute reactive airway exacerbation. Cough + diffuse expiratory wheezes, no tob hx or hx of COPD cont on scheduled duonebs, improving 6. DM. Glyburide held while NPO, cont q6h SSI 7. Atelectasis. On CXR (personally interpreted), w/ hypoxemia IS 8. Hypocalcemia. 2/2 pancreatitis, q6h replacement Diet. Adv liq per GI PPx. Hep SC Subjective: still w abd pain. better, per family. case d/w dr easley Objective: Vital Signs Temp Pulse Resp BP Pulse Ox 36.4 C 110 H 25 H 114/94 H 95 09/28/16 12:00 09/28/16 12:00 09/28/16 12:00 09/28/16 12:00 09/28/16 12:00 Microbiology 09/22/16 23:10 Blood Culture - Final Blood 09/22/16 23:00 Blood Culture - Final Blood Laboratory Results 09/28/16 04:10 09/28/16 04:10 09/27/16 09/28/16 09/29/16 05:59 05:59 05:59 Intake Total 1950 946.7 Output Total 425 225 50 Balance 1525 721.7 -50 PT 13.3 SEC (12.0-15.0) 09/22/16 18:35 INR 1.02 (0.83-1.16) 09/22/16 18:35 - Physical Exam Constitutional: no apparent distress, appears nourished Eyes: PERRL, anicteric sclera Ears, Nose, Mouth, Throat: moist mucous membranes, hearing normal Cardiovascular: regular rate and rhythym, no murmur, rub, or gallop Respiratory: no respiratory distress, no rales or rhonchi Gastrointestinal: normoactive bowel sounds, soft, non-tender abdomen Genitourinary: No dean in urethra Skin: warm, normal color Musculoskeletal: full muscle strength, no muscle tenderness Neurologic: AAOx3 Psychiatric: interacting appropriately ICD10 Worksheet Patient Problems: Problems Problem Status Onset Pancreatitis Acute
--- NOTE | 2016-09-28 14:20 | PDINTPN ---
Drainage Inspector Progress Note Assessment/Plan: Assessment: Acute pancreatitis. Hypocalcemia secondary to the above. On replacement Acute renal failure, status post hemodialysis again today. Secondary to pancreatitis, hypertension, volume shifts Cough. Secondary to throat irritation/bronchial congestion, basilar atelectasis. On nebulized treatments. Metabolic: Diabetes with hyperglycemia. On appropriate sliding scale coverage. DVT prophylaxis: On subcu heparin GI prophylaxis: Will change to IV pantoprazole Confusion: Multifactorial. Secondary to medications, lack of sleep, and toxic metabolic issues related to her pancreatitis/renal failure. Did significantly better last night with Precedex. Will continue this for at least 1 more night. Plan: Continue care in the intensive care unit. Continue Precedex at least for 1 more night tonight. Continue nebulized treatments, lozenges for cough. Continue narcotics/pain control. Hemodialysis per Renal. Follow calcium and replace per protocols.. Subjective: Feels a little better. Status post hemodialysis this morning. Still with significant abdominal distension and discomfort. Rested better, slept some with Precedex last night. Objective: Vital Signs Temp Pulse Resp BP Pulse Ox 36.4 C 110 H 25 H 114/94 H 95 09/28/16 12:00 09/28/16 12:00 09/28/16 12:00 09/28/16 12:00 09/28/16 12:00 Microbiology 09/22/16 23:10 Blood Culture - Final Blood 09/22/16 23:00 Blood Culture - Final Blood Laboratory Results 09/28/16 04:10 09/28/16 04:10 09/27/16 09/28/16 09/29/16 05:59 05:59 05:59 Intake Total 1950 946.7 Output Total 425 225 50 Balance 1525 721.7 -50 PT 13.3 SEC (12.0-15.0) 09/22/16 18:35 INR 1.02 (0.83-1.16) 09/22/16 18:35 Laboratory Tests 09/26/16 09/27/16 09/28/16 09:30 21:30 04:10 Calcium 6.9 L Ionized Calcium Phosphorus 6.1 H Magnesium 1.8 Total Bilirubin 1.8 H AST 57 H ALT 57 H Total Protein 4.6 L Albumin 2.2 L Lipase 131.0 Hep Bs Antibody Negative Hep Bs Antibody, Quant <5.0 09/28/16 04:10 Calcium Ionized Calcium 1.04 L Phosphorus Magnesium Total Bilirubin AST ALT Total Protein Albumin Lipase Hep Bs Antibody Hep Bs Antibody, Quant Physical Exam - Physical Exam General Appearance: alert, mild distress (Secondary to abdominal discomfort), obese EENT: PERRL/EOMI, other (Nasal cannula 4 L) Neck: normal inspection (Large neck) Respiratory: decreased breath sounds (Especially at bases), rales (Rales at bases associated with some bronchial changes), No rhonchi, No wheezing Cardiac/Chest: regular rate, rhythm, tachycardia (Sinus) Abdomen: distended, No normal bowel sounds, No non-tender, No soft Pelvic Exam: other (No Zamora, still with little urine output) Skin: normal color, warm/dry Extremities: pedal edema (1+) Neuro/Psych: no motor/sensory deficits, No cognition abnormalities ICD10 Worksheet Patient Problems: Problems Problem Status Onset Pancreatitis Acute
[2016-09-28] MEDS: LORazepam 2 MG/ML INJ IVP PRN (17:08)
[2016-09-28] MEDS: DEXMEDETOMIDINE HCL 400 MCG in NS 100 ML IV SCH (19:45)
[2016-09-29] MEDS: IPRATROPIUM/ALBUTEROL 3 ML DEYVIAL IH SCH ×5 (00:08→23:56)
[2016-09-29 05:53] LABS: ABSOLUTE NRBC COUNT 0.04 10^3/uL (0-0.01); ADD DIFF? YES; ADD MORPH? NO; ATYPICAL LYMPHOCYTE FLAG 90 (0-99); FRAGMENT RBC FLAG 0 (0-99); HEMATOCRIT 26.4 % (38.0-47.0); HEMOGLOBIN 9.5 g/dL (12.6-16.3); LIPEMIA HEMOLYSIS FLAG 90 (0-99); MEAN CELL HEMOGLOBIN 31.6 pg (27.9-34.1); MEAN CELL VOLUME 87.7 fL (81.5-99.8); MEAN PLATELET VOLUME 10.5 fL (8.7-11.7); NRBC-AUTO% 0.2 % (0.0-0.2); PLATELET CLUMPS FLAG 10 (0-99); PLATELET COUNT 109 10^3/uL (150-400); RED BLOOD CELL COUNT 3.01 10^6/uL (4.18-5.33); RED CELL DISTRIBUTION WIDTH 14.9 % (11.5-15.2)
[2016-09-29 05:56] LABS: ADD SCAN? NO; IONIZED CALCIUM 1.02 MMOL/L (1.12-1.30); LEFT SHIFT FLG 300 (0-99)
[2016-09-29 06:06] LABS: ALBUMIN 2.1 g/dL (3.5-5.0); ANION GAP 11 mEq/L (8-16); CALCIUM 7.2 mg/dL (8.5-10.4); CARBON DIOXIDE 23 mEq/l (22-31); CHLORIDE 96 mEq/L (97-110); CREATININE 3.7 mg/dL (0.6-1.0); GLOMERULAR FILTRATION RATE 12; GLUCOSE 158 mg/dL (70-100); POTASSIUM 4.1 mEq/L (3.5-5.2); SODIUM 130 mEq/L (134-144)
[2016-09-29] MEDS: HEPARIN 5,000 UNIT/0.5 ML SYR SC SCH ×3 (06:07→21:53)
[2016-09-29 07:32] LABS: PLATELET ESTIMATE DECREASED (ADEQ); POLYCHROMASIA 1+; TOXIC GRANULATION PRESENT
[2016-09-29] MEDS: INSULIN REGULAR HUMAN 100 UNIT/ML SC SCH ×3 (09:03→17:39)
[2016-09-29] MEDS: PANTOPRAZOLE SODIUM 40 MG TAB PO SCH (09:04)
[2016-09-29] MEDS ORDERED: D10W 1,000 ML IV PRN (10:56)
--- NOTE | 2016-09-29 10:57 | SOAPPROG ---
THOMAS Progress Note Assessment/Plan: Assessment: 1. ANISH - -Pt with oliguric ANISH in setting of pancreatitis, likely has ATN. -Last HD yesterday - No HD today. - Will continue to assess her dialysis needs and monitor for recovery. - Avoid MOM, morphine, demerol, NSAIDs, contrast, aminoglycosides, fleets, and other nephrotoxins. 2. Hypervolemia - -Improving with HD 3. Hypocalcemia - -Improving with HD and replacement. 4. Hyperphos - -Cont renal diet -Consider binders if continues to rise 5. Metabolic acidosis - -Resolved with HD. Plan: 09/29/16 10:56 09/29/16 10:57 Subjective: c/o same abdominal pain. Has been tolerating HD well. Objective: Vital Signs Temp Pulse Resp BP Pulse Ox 36.7 C 92 22 H 110/59 L 97 09/29/16 08:00 09/29/16 08:00 09/29/16 08:00 09/29/16 08:00 09/29/16 08:00 Microbiology 09/22/16 23:10 Blood Culture - Final Blood 09/22/16 23:00 Blood Culture - Final Blood Laboratory Results 09/29/16 05:40 09/29/16 05:40 09/28/16 09/29/16 09/30/16 05:59 05:59 06:59 Intake Total 946.7 1728.8 Output Total 225 250 Balance 721.7 1478.8 PT 13.3 SEC (12.0-15.0) 09/22/16 18:35 INR 1.02 (0.83-1.16) 09/22/16 18:35 Physical Exam - Physical Exam General Appearance: WD/WN, alert, no apparent distress Respiratory: lungs clear Cardiac/Chest: regular rate, rhythm Abdomen: other (generalized tenderness on palp) Extremities: No swelling ICD10 Worksheet Patient Problems: Problems Problem Status Onset Pancreatitis Acute
[2016-09-29] MEDS ORDERED: CALCIUM GLUCONATE 1 GM in D5W 50 ML IV ONE (11:30)
[2016-09-29 11:43] LABS: ABSOLUTE NRBC COUNT 0.05 10^3/uL (0-0.01); ADD DIFF? YES; ADD MORPH? NO; ATYPICAL LYMPHOCYTE FLAG 60 (0-99); FRAGMENT RBC FLAG 0 (0-99); HEMATOCRIT 27.7 % (38.0-47.0); HEMOGLOBIN 9.8 g/dL (12.6-16.3); LIPEMIA HEMOLYSIS FLAG 90 (0-99); MEAN CELL HEMOGLOBIN 30.6 pg (27.9-34.1); MEAN CELL HEMOGLOBIN CONCENTR. 35.4 g/dL (32.4-36.7); MEAN CELL VOLUME 86.6 fL (81.5-99.8); MEAN PLATELET VOLUME 10.5 fL (8.7-11.7); NRBC-AUTO% 0.2 % (0.0-0.2); PLATELET CLUMPS FLAG 10 (0-99); PLATELET COUNT 114 10^3/uL (150-400); RED CELL DISTRIBUTION WIDTH 14.9 % (11.5-15.2)
[2016-09-29 11:54] LABS: APTT 30.8 SEC (23.0-38.0); INR 1.16 (0.83-1.16); PROTIME(PATIENT) 14.8 SEC (12.0-15.0)
[2016-09-29 11:58] LABS: LEFT SHIFT FLG 300 (0-99)
[2016-09-29 11:59] LABS: ADD SCAN? NO
[2016-09-29] MEDS ORDERED: CALCIUM GLUCONATE 50 ML IV ONE (12:00)
[2016-09-29 12:05] LABS: ALANINE AMINOTRANSFERASE 49 IU/L (9-52); ALBUMIN 2.1 g/dL (3.5-5.0); ALKALINE PHOSPHATASE 68 IU/L (38-126); ANION GAP 10 mEq/L (8-16); ASPARTATE AMINOTRANSFERASE 48 IU/L (14-46); BILIRUBIN,TOTAL 1.6 mg/dL (0.1-1.4); CALCIUM 7.3 mg/dL (8.5-10.4); CARBON DIOXIDE 22 mEq/l (22-31); CHLORIDE 96 mEq/L (97-110); CREATININE 3.7 mg/dL (0.6-1.0); GLOMERULAR FILTRATION RATE 12; GLUCOSE 160 mg/dL (70-100); POTASSIUM 4.1 mEq/L (3.5-5.2); SODIUM 128 mEq/L (134-144); TOTAL PROTEIN 4.4 g/dL (6.3-8.2); TRIGLYCERIDE 154 mg/dL (35-135)
[2016-09-29] MEDS: HYDROmorphONE/DILAUDID 6 MG/30 ML PCA IV PRN ×2 (12:24→20:32)
[2016-09-29 13:05] LABS: KERATOCYTES 1+; PLATELET ESTIMATE DECREASED (ADEQ); POLYCHROMASIA 2+
[2016-09-29] MEDS: PANTOPRAZOLE SODIUM 40 MG in NS 100 ML IV SCH (13:15)
--- NOTE | 2016-09-29 14:52 | SOAPPROG ---
SOAP Progress Note Assessment/Plan: Assessment:Plan: 1) pancreatitis - likely from hemobilia from liver bx - continue current management, azathioprine ok to restart 2) LFT's - as above, suspect hemobilia from liver bx causing CBD obstruction and elevated LFT's - follow, should resolve over time, already decreasing 3) abdo pain - form #1, a bit worse with po so back on liquids 4) ARF - HD as per renal will follow with you 09/29/16 14:54 Subjective: CC- pancreatitis, renal failure, abdo pain, abnml LFT's pt c/o increased abdo pain with solids Objective: Vital Signs Temp Pulse Resp BP Pulse Ox 36.9 C 102 H 23 H 140/64 H 95 09/29/16 12:23 09/29/16 12:23 09/29/16 12:23 09/29/16 12:23 09/29/16 12:23 Laboratory Results 09/29/16 11:20 09/29/16 05:45 09/28/16 09/29/16 09/30/16 05:59 05:59 06:59 Intake Total 946.7 1728.8 Output Total 225 250 50 Balance 721.7 1478.8 -50 PT 14.8 SEC (12.0-15.0) 09/29/16 11:20 INR 1.16 (0.83-1.16) 09/29/16 11:20 Alert and answering questions CTA poor resp effort S1S2 +BS, soft epi tenderness no rebound Laboratory Tests 09/26/16 09/29/16 05:00 05:45 Total Bilirubin 3.1 H 1.6 H AST 83 H 48 H ALT 70 H 49 Alkaline Phosphatase 68 ICD10 Worksheet Patient Problems: Problems Problem Status Onset Pancreatitis Acute
--- NOTE | 2016-09-29 15:00 | HOSPPROG ---
Hospitalist Progress Note Assessment/Plan: 66-year-old female presents with acute pancreatitis following liver biopsy Plan: 1. Acute severe pancreatitis. Unclear etiology, occurred s/p liver bx, elevated lipase and abd pain. does take azathioprine but has been on t for years pain after eating NPO again 2. ANISH. 2/2 ATN in setting of hypoperfusion from acute pancreatitis, did not improve w/ volume resuscitation HD today again today w/ volume removal, fatigued approaching euvolemia 3. Metabolic acidosis. Acute, in setting of ANISH 4. Autoimmune cholangitis. Chronic, this might increase her risk for autoimmune pancreatitis, hold Imuran for now as can cause pancreatitis s/p steroids 5. Acute reactive airway exacerbation. Cough + diffuse expiratory wheezes, no tob hx or hx of COPD cont on scheduled duonebs, improving 6. DM. Glyburide held while NPO, cont q6h SSI 7. Atelectasis. On CXR (personally interpreted), w/ hypoxemia IS 8. Hypocalcemia. 2/2 pancreatitis, q6h replacement Diet. Adv liq per GI PPx. Hep SC Subjective: ate followed by pain. case d/w dr easley. tele: no events (interp by me) Objective: Vital Signs Temp Pulse Resp BP Pulse Ox 36.9 C 102 H 23 H 140/64 H 95 09/29/16 12:23 09/29/16 12:23 09/29/16 12:23 09/29/16 12:23 09/29/16 12:23 Laboratory Results 09/29/16 11:20 09/29/16 05:45 09/28/16 09/29/16 09/30/16 05:59 05:59 06:59 Intake Total 946.7 1728.8 Output Total 225 250 50 Balance 721.7 1478.8 -50 PT 14.8 SEC (12.0-15.0) 09/29/16 11:20 INR 1.16 (0.83-1.16) 09/29/16 11:20 - Physical Exam Constitutional: no apparent distress, appears nourished Eyes: PERRL, anicteric sclera Ears, Nose, Mouth, Throat: moist mucous membranes, hearing normal Cardiovascular: regular rate and rhythym, no murmur, rub, or gallop Respiratory: no respiratory distress, no rales or rhonchi Gastrointestinal: normoactive bowel sounds, soft, non-tender abdomen, no palpable masses Genitourinary: No dean in urethra Skin: warm, normal color Musculoskeletal: full muscle strength, no muscle tenderness Neurologic: AAOx3, sensation intact bilaterally Psychiatric: interacting appropriately ICD10 Worksheet Patient Problems: Problems Problem Status Onset Pancreatitis Acute
--- NOTE | 2016-09-29 18:12 | PDINTPN ---
[place] Applier Progress Note Assessment/Plan: Assessment: Acute pancreatitis. Had significant increase in pain with feeding and today. Will keep NPO, start TPN at this point. Hypocalcemia secondary to the above. On replacement Acute renal failure, getting hemodialysis. Secondary to pancreatitis, hypertension, volume shifts Cough. Improved. Secondary to throat irritation/bronchial congestion, basilar atelectasis. On nebulized treatments. Metabolic: Diabetes with hyperglycemia. On appropriate sliding scale coverage. DVT prophylaxis: On subcu heparin GI prophylaxis: Will change to IV pantoprazole Confusion: Improving. Multifactorial. Secondary to medications, lack of sleep , and toxic metabolic issues related to her pancreatitis/renal failure. Sleeping/resting better at night with Precedex. Will continue... Plan: Continue care in the intensive care unit. Continue Precedex at least for 1 more night tonight. Start TPN. Continue NPO status. Continue nebulized treatments, lozenges for cough. Continue narcotics/pain control. Hemodialysis per Renal. Follow calcium and replace per protocols.. Subjective: Sleepy this afternoon, arousable, less abdominal pain. Objective: Vital Signs Temp Pulse Resp BP Pulse Ox 36.8 C 98 17 129/61 H 97 09/29/16 16:26 09/29/16 17:26 09/29/16 17:26 09/29/16 16:26 09/29/16 17:26 Laboratory Results 09/29/16 11:20 09/28/16 09/29/16 09/30/16 05:59 05:59 06:59 Intake Total 946.7 1728.8 Output Total 225 250 50 Balance 721.7 1478.8 -50 PT 14.8 SEC (12.0-15.0) 09/29/16 11:20 INR 1.16 (0.83-1.16) 09/29/16 11:20 Laboratory Tests 09/29/16 09/29/16 09/29/16 05:40 05:45 11:20 PT 14.8 INR 1.16 APTT 30.8 Calcium 7.3 L Ionized Calcium 1.02 L Phosphorus 6.4 H Magnesium 2.0 Total Bilirubin 1.6 H AST 48 H ALT 49 Albumin 2.1 L Physical Exam - Physical Exam General Appearance: obese, other (Sleepy, arousable) EENT: PERRL/EOMI, other (Nasal cannula at 3 L) Neck: normal inspection Respiratory: lungs clear, decreased breath sounds (At bases) Cardiac/Chest: regular rate, rhythm Abdomen: distended, No normal bowel sounds (Decreased, hypoactive), No non- tender, No soft Skin: normal color, warm/dry Extremities: pedal edema Neuro/Psych: no motor/sensory deficits, No cognition abnormalities ICD10 Worksheet Patient Problems: Problems Problem Status Onset Pancreatitis Acute
[2016-09-29 18:20] LABS: POTASSIUM 3.7 mEq/L (3.5-5.2)
[2016-09-29] MEDS ORDERED: POTASSIUM Cl (KCl) 50 ML IV ONE (19:30)
[2016-09-29] MEDS: TPN 1 EA BAG IV SCH (20:37)
[2016-09-29] MEDS: DEXMEDETOMIDINE HCL 400 MCG in NS 100 ML IV SCH (22:18)
[2016-09-30] MEDS: INSULIN REGULAR HUMAN 100 UNIT/ML SC SCH ×4 (00:17→17:49)
[2016-09-30 04:12] LABS: IONIZED CALCIUM 1.11 MMOL/L (1.12-1.30)
[2016-09-30 04:23] LABS: ABSOLUTE NRBC COUNT 0.03 10^3/uL (0-0.01); ADD DIFF? YES; ADD MORPH? NO; ATYPICAL LYMPHOCYTE FLAG 80 (0-99); FRAGMENT RBC FLAG 0 (0-99); HEMATOCRIT 26.7 % (38.0-47.0); HEMOGLOBIN 9.4 g/dL (12.6-16.3); LIPEMIA HEMOLYSIS FLAG 90 (0-99); MEAN CELL HEMOGLOBIN 30.4 pg (27.9-34.1); MEAN CELL HEMOGLOBIN CONCENTR. 35.2 g/dL (32.4-36.7); MEAN CELL VOLUME 86.4 fL (81.5-99.8); MEAN PLATELET VOLUME 10.5 fL (8.7-11.7); NRBC-AUTO% 0.1 % (0.0-0.2); PLATELET CLUMPS FLAG 30 (0-99); PLATELET COUNT 116 10^3/uL (150-400); RED BLOOD CELL COUNT 3.09 10^6/uL (4.18-5.33); RED CELL DISTRIBUTION WIDTH 14.7 % (11.5-15.2)
[2016-09-30 04:24] LABS: ADD SCAN? NO; LEFT SHIFT FLG 300 (0-99)
[2016-09-30 04:26] LABS: ALANINE AMINOTRANSFERASE 51 IU/L (9-52); ALBUMIN 2.1 g/dL (3.5-5.0); ALKALINE PHOSPHATASE 82 IU/L (38-126); ANION GAP 9 mEq/L (8-16); ASPARTATE AMINOTRANSFERASE 41 IU/L (14-46); BILIRUBIN,TOTAL 1.5 mg/dL (0.1-1.4); CALCIUM 7.5 mg/dL (8.5-10.4); CARBON DIOXIDE 22 mEq/l (22-31); CHLORIDE 95 mEq/L (97-110); CREATININE 4.8 mg/dL (0.6-1.0); GLOMERULAR FILTRATION RATE 9; GLUCOSE 203 mg/dL (70-100); SODIUM 126 mEq/L (134-144); TOTAL PROTEIN 4.4 g/dL (6.3-8.2)
[2016-09-30 04:30] LABS: APTT 31.6 SEC (23.0-38.0); INR 1.2 (0.83-1.16); PROTIME(PATIENT) 15.2 SEC (12.0-15.0)
[2016-09-30] MEDS ORDERED: CALCIUM GLUCONATE 50 ML IV ONE (04:42)
[2016-09-30 05:48] LABS: PLATELET ESTIMATE DECREASED (ADEQ); POLYCHROMASIA 1+; TOXIC GRANULATION PRESENT; TOXIC VACUOLIZATION PRESENT
[2016-09-30] MEDS: IPRATROPIUM/ALBUTEROL 3 ML DEYVIAL IH SCH ×3 (06:16→17:04)
[2016-09-30] MEDS: HEPARIN 5,000 UNIT/0.5 ML SYR SC SCH ×3 (06:40→21:13)
[2016-09-30] MEDS: PANTOPRAZOLE SODIUM 40 MG in NS 100 ML IV SCH (09:13)
[2016-09-30] MEDS: OXYMETAZOLINE 30 ML NASAL SPRAY EACHNARE SCH ×2 (10:49→21:13)
[2016-09-30] MEDS ORDERED: DEXMEDETOMIDINE HCL 400 MCG in NS 100 ML IV PRN (10:58)
--- NOTE | 2016-09-30 12:50 | SOAPPROG ---
THOMAS Progress Note Assessment/Plan: Assessment:Plan: 1) pancreatitis - likely from hemobilia from liver bx - continue current management, azathioprine ok to restart 2) LFT's - as above, suspect hemobilia from liver bx causing CBD obstruction and elevated LFT's - follow, should resolve over time, already decreasing 3) abdo pain - form #1, a bit worse with po so back on liquids 4) ARF - HD as per renal will follow with you 09/29/16 14:54 09/30/16 12:47 as above 1) pancreatitis - resolving, but slow to turn the corner, solid food increase her pain 2) LFT's - going down 3) abdo pain - a bit better but still an issue for her PO intake 4) ARF - as per renal - HD I think is planned for today 5) WBC - went up today. not sure why. If goes up more may repeat abdo imaging will follow 09/30/16 12:50 Subjective: cc- pancreatitis, ARF, abdo pain pt more later this am still c/o abdo pain present for exam Objective: Vital Signs Temp Pulse Resp BP Pulse Ox 37.3 C 108 H 22 H 120/56 L 96 09/30/16 08:00 09/30/16 11:04 09/30/16 11:04 09/30/16 08:00 09/30/16 11:04 Laboratory Results 09/30/16 04:10 09/30/16 04:10 09/29/16 09/30/16 10/01/16 04:59 05:59 05:59 Intake Total Output Total Balance PT 15.2 SEC (12.0-15.0) H 09/30/16 04:10 INR 1.20 (0.83-1.16) H 09/30/16 04:10 alert coarse BS S1S2, no rubs or gallops +BS, soft tender no rebound or guarding ICD10 Worksheet Patient Problems: Problems Problem Status Onset Pancreatitis Acute
--- NOTE | 2016-09-30 15:41 | HOSPPROG ---
Hospitalist Progress Note Assessment/Plan: 66-year-old female presents with acute pancreatitis following liver biopsy Plan: confusion: precedex associated w increased duration of sedation so may be playing a role here multifactorial- anish, pain meds minimize precedex 1. Acute severe pancreatitis. Unclear etiology, occurred s/p liver bx, elevated lipase and abd pain. does take azathioprine but has been on t for years pain after eating NPO again 2. ANISH. 2/2 ATN in setting of hypoperfusion from acute pancreatitis, did not improve w/ volume resuscitation HD today again today w/ volume removal, fatigued approaching euvolemia 3. Metabolic acidosis. Acute, in setting of ANISH 4. Autoimmune cholangitis. Chronic, this might increase her risk for autoimmune pancreatitis, hold Imuran for now as can cause pancreatitis s/p steroids 5. Acute reactive airway exacerbation. Cough + diffuse expiratory wheezes, no tob hx or hx of COPD cont on scheduled duonebs, improving 6. DM. Glyburide held while NPO, cont q6h SSI 7. Atelectasis. On CXR (personally interpreted), w/ hypoxemia IS 8. Hypocalcemia. 2/2 pancreatitis, q6h replacement Diet. Adv liq per GI PPx. Hep SC Subjective: some confusion noted by nurses. case d/w dr easley. no events tele (interp by me) Objective: Vital Signs Temp Pulse Resp BP Pulse Ox 37.3 C 114 H 20 129/67 H 100 09/30/16 08:00 09/30/16 12:00 09/30/16 12:00 09/30/16 12:00 09/30/16 12:00 Laboratory Results 09/30/16 04:10 09/30/16 04:10 09/29/16 09/30/16 10/01/16 04:59 05:59 05:59 Intake Total Output Total Balance PT 15.2 SEC (12.0-15.0) H 09/30/16 04:10 INR 1.20 (0.83-1.16) H 09/30/16 04:10 - Physical Exam Constitutional: no apparent distress, appears nourished Eyes: PERRL, anicteric sclera Ears, Nose, Mouth, Throat: moist mucous membranes, hearing normal Cardiovascular: regular rate and rhythym, no murmur, rub, or gallop Respiratory: no respiratory distress, no rales or rhonchi Gastrointestinal: normoactive bowel sounds, soft, non-tender abdomen Genitourinary: No dean in urethra Skin: warm, normal color Musculoskeletal: full muscle strength, no muscle tenderness Neurologic: AAOx3, sensation intact bilaterally, other (mild confusion) Psychiatric: interacting appropriately Lymph, Heme, Immunologic: no cervical LAD ICD10 Worksheet Patient Problems: Problems Problem Status Onset Pancreatitis Acute
--- NOTE | 2016-09-30 17:27 | SOAPPROG ---
SOAP Progress Note Assessment/Plan: Assessment: 1. ANISH - -Pt with oliguric ANISH in setting of pancreatitis, likely has ATN. -On HD today. -Will repeat HD tomorrow to help treat volume overload 2. Hypervolemia - -Improving with HD, cont as tolerated 3. Hypocalcemia - -Improving with HD and replacement. 4. Hyperphos - -Cont renal diet -Consider binders if continues to rise 5. Metabolic acidosis - -Resolved with HD. Plan: 09/30/16 17:27 09/30/16 17:28 Subjective: Seen and examined on HD. Tolerating well. Notes breathing is labored. UF goal 2.5L. Qb 350. Still has abdominal pain. Objective: Vital Signs Temp Pulse Resp BP Pulse Ox 37.3 C 112 H 20 129/67 H 94 09/30/16 08:00 09/30/16 17:05 09/30/16 17:05 09/30/16 12:00 09/30/16 17:05 Laboratory Results 09/30/16 04:10 09/30/16 04:10 09/29/16 09/30/16 10/01/16 04:59 05:59 05:59 Intake Total Output Total Balance PT 15.2 SEC (12.0-15.0) H 09/30/16 04:10 INR 1.20 (0.83-1.16) H 09/30/16 04:10 Physical Exam - Physical Exam General Appearance: WD/WN, alert Respiratory: lungs clear, decreased breath sounds (bases) Cardiac/Chest: regular rate, rhythm Abdomen: other (generalized moderate tenderness), No guarding, No rebound Extremities: swelling (1-2+ LE edema) ICD10 Worksheet Patient Problems: Problems Problem Status Onset Pancreatitis Acute
[2016-09-30] MEDS: HYDROmorphONE/DILAUDID 6 MG/30 ML PCA IV PRN (19:47)
[2016-09-30] MEDS ORDERED: HEPARIN 50,000 UNIT/10 ML VIAL ONE ×2 (21:12→21:16)
[2016-09-30] MEDS: TPN 1 EA BAG IV SCH (21:13)
[2016-09-30 22:09] LABS: POTASSIUM 3.6 mEq/L (3.5-5.2)
[2016-09-30] MEDS ORDERED: POTASSIUM Cl (KCl) 50 ML IV ONE (22:12)
[2016-10-01] MEDS: INSULIN REGULAR HUMAN 100 UNIT/ML SC SCH ×2 (00:08→06:01)
[2016-10-01] MEDS: IPRATROPIUM/ALBUTEROL 3 ML DEYVIAL IH SCH ×5 (01:59→21:30)
[2016-10-01 05:11] LABS: IONIZED CALCIUM 1.16 MMOL/L (1.12-1.30)
[2016-10-01 05:18] LABS: ABSOLUTE NRBC COUNT 0.03 10^3/uL (0-0.01); ADD DIFF? YES; ADD MORPH? NO; ATYPICAL LYMPHOCYTE FLAG 80 (0-99); FRAGMENT RBC FLAG 0 (0-99); HEMATOCRIT 25.5 % (38.0-47.0); HEMOGLOBIN 9.1 g/dL (12.6-16.3); LIPEMIA HEMOLYSIS FLAG 90 (0-99); MEAN CELL HEMOGLOBIN 31.7 pg (27.9-34.1); MEAN CELL HEMOGLOBIN CONCENTR. 35.7 g/dL (32.4-36.7); MEAN CELL VOLUME 88.9 fL (81.5-99.8); MEAN PLATELET VOLUME 10.7 fL (8.7-11.7); NRBC-AUTO% 0.1 % (0.0-0.2); PLATELET CLUMPS FLAG 0 (0-99); PLATELET COUNT 126 10^3/uL (150-400); RED BLOOD CELL COUNT 2.87 10^6/uL (4.18-5.33); RED CELL DISTRIBUTION WIDTH 14.8 % (11.5-15.2)
[2016-10-01 05:20] LABS: ADD SCAN? NO; LEFT SHIFT FLG 300 (0-99)
[2016-10-01 05:30] LABS: ALANINE AMINOTRANSFERASE 41 IU/L (9-52); ALBUMIN 1.9 g/dL (3.5-5.0); ALKALINE PHOSPHATASE 99 IU/L (38-126); ANION GAP 9 mEq/L (8-16); ASPARTATE AMINOTRANSFERASE 38 IU/L (14-46); BILIRUBIN,TOTAL 1.2 mg/dL (0.1-1.4); CALCIUM 7.8 mg/dL (8.5-10.4); CARBON DIOXIDE 24 mEq/l (22-31); CHLORIDE 95 mEq/L (97-110); CREATININE 3.6 mg/dL (0.6-1.0); GLOMERULAR FILTRATION RATE 13; GLUCOSE 227 mg/dL (70-100); MAGNESIUM 1.8 mg/dL (1.6-2.3); SODIUM 128 mEq/L (134-144); TOTAL PROTEIN 4.5 g/dL (6.3-8.2); TRIGLYCERIDE 123 mg/dL (35-135)
[2016-10-01 05:35] LABS: INR 1.22 (0.83-1.16); PROTIME(PATIENT) 15.4 SEC (12.0-15.0)
[2016-10-01] MEDS: HEPARIN 5,000 UNIT/0.5 ML SYR SC SCH ×3 (06:01→21:40)
[2016-10-01 06:39] LABS: MICROCYTES 2+
[2016-10-01 06:40] LABS: LARGE PLATELETS PRESENT; PLATELET ESTIMATE DECREASED (ADEQ); POLYCHROMASIA 1+; TOXIC GRANULATION PRESENT
[2016-10-01 06:42] LABS: TOXIC VACUOLIZATION PRESENT
--- NOTE | 2016-10-01 08:06 | SOAPPROG ---
SOAP Progress Note Assessment/Plan: Assessment: 1. ANISH Oliguric ischemic ATN. HD yesterday and today. Tolerating well. Total body volume increased. Next HD Saturday. 2. TPN Tolerating. High Acetate, monitor bicarb levels 3. Pancreatitis Severe, on pain control, GI following. Imuran the cause? Plan: 10/01/16 08:03 Subjective: Seen on HD. Objective: Vital Signs Temp Pulse Resp BP Pulse Ox 36.9 C 100 14 105/66 98 10/01/16 04:00 10/01/16 04:00 10/01/16 04:00 10/01/16 04:00 10/01/16 04:00 Laboratory Results 10/01/16 05:00 10/01/16 05:00 09/30/16 10/01/16 10/02/16 05:59 05:59 05:59 Intake Total 1482.2 Output Total 2300 Balance -817.8 PT 15.4 SEC (12.0-15.0) H 10/01/16 05:00 INR 1.22 (0.83-1.16) H 10/01/16 05:00 Physical Exam - Physical Exam General Appearance: mild distress Respiratory: decreased breath sounds Cardiac/Chest: regular rate, rhythm Abdomen: distended, other (some diffuse tenderness) Extremities: pedal edema ICD10 Worksheet Patient Problems: Problems Problem Status Onset Pancreatitis Acute
[2016-10-01] MEDS ORDERED: HYDROmorphONE/DILAUDID 6 MG/30 ML PCA IV PRN (10:58)
[2016-10-01] MEDS: INSULIN REGULAR, HUMAN 100 UNIT/1 ML VIAL HIGH SC SCH ×4 (11:24→23:39)
[2016-10-01] MEDS: PANTOPRAZOLE SODIUM 40 MG in NS 100 ML IV SCH (11:49)
[2016-10-01] MEDS: OXYMETAZOLINE 30 ML NASAL SPRAY EACHNARE SCH ×2 (11:50→21:40)
--- NOTE | 2016-10-01 12:21 | SOAPPROG ---
THOMAS Progress Note Assessment/Plan: Assessment:Plan: 1) pancreatitis - likely from hemobilia from liver bx - continue current management, azathioprine ok to restart 2) LFT's - as above, suspect hemobilia from liver bx causing CBD obstruction and elevated LFT's - follow, should resolve over time, already decreasing 3) abdo pain - form #1, a bit worse with po so back on liquids 4) ARF - HD as per renal will follow with you 09/29/16 14:54 09/30/16 12:47 as above 1) pancreatitis - resolving, but slow to turn the corner, solid food increase her pain 2) LFT's - going down 3) abdo pain - a bit better but still an issue for her PO intake 4) ARF - as per renal - HD I think is planned for today 5) WBC - went up today. not sure why. If goes up more may repeat abdo imaging will follow 09/30/16 12:50 10/01/16 12:18 looks better today, more alert, brighter 1) pancreatitis - slowly resolving, still with some increased pain with PO intake 2) LFT's - decreasing 3) ARF - as per renal, HD for fluid status 4) WBC - down a tad from yesterday, still with sig left shift but less band now on differential. If increases or if any fevers then repeat abdo imaging will follow Subjective: cc- pancreatitis -- I think from hemobilia from liver bx, I do not think her azathioprine is the cause Pt is looking better today , maybe from less sedation/pain meds? She still says PO causes more pain but overall better Objective: Vital Signs Temp Pulse Resp BP Pulse Ox 37.0 C 66 16 108/50 L 91 L 10/01/16 12:00 10/01/16 12:00 10/01/16 12:00 10/01/16 12:00 10/01/16 12:00 Laboratory Results 10/01/16 05:00 10/01/16 05:00 09/30/16 10/01/16 10/02/16 05:59 05:59 05:59 Intake Total 1482.2 Output Total 2300 Balance -817.8 PT 15.4 SEC (12.0-15.0) H 10/01/16 05:00 INR 1.22 (0.83-1.16) H 10/01/16 05:00 Laboratory Tests 09/29/16 09/30/16 10/01/16 11:20 04:10 05:00 WBC 24.27 H 27.37 H Seg Neutrophils % 41 66 Band Neutrophils % 48 26 AST 38 ALT 41 Alkaline Phosphatase 99 10/01/16 05:00 WBC 25.89 H Seg Neutrophils % 54 Band Neutrophils % 29 AST ALT Alkaline Phosphatase A+O coarse BS anteriorly BS are present but decreased frequency, filter tender but no rebound S1S2 ICD10 Worksheet Patient Problems: Problems Problem Status Onset Pancreatitis Acute
--- NOTE | 2016-10-01 16:44 | HOSPPROG ---
Hospitalist Progress Note Assessment/Plan: 66-year-old female presents with acute pancreatitis following liver biopsy Plan: confusion: precedex associated w increased duration of sedation so may be playing a role here multifactorial- anish, pain meds dc precedex reduce dose of dilaudid on sap portal developer seems she may be hitting it out of habit 1. Acute severe pancreatitis. Unclear etiology, occurred s/p liver bx, elevated lipase and abd pain. does take azathioprine but has been on t for years pain after eating NPO again will allow sips h20 2. ANISH. 2/2 ATN in setting of hypoperfusion from acute pancreatitis, did not improve w/ volume resuscitation HD today again today w/ volume removal, fatigued approaching euvolemia 3. Metabolic acidosis. Acute, in setting of ANISH 4. Autoimmune cholangitis. Chronic, this might increase her risk for autoimmune pancreatitis, hold Imuran for now as can cause pancreatitis s/p steroids 5. Acute reactive airway exacerbation. Cough + diffuse expiratory wheezes, no tob hx or hx of COPD cont on scheduled duonebs, improving 6. DM. Glyburide held while NPO, cont q6h SSI 7. Atelectasis. On CXR (personally interpreted), w/ hypoxemia IS 8. Hypocalcemia. 2/2 pancreatitis, q6h replacement Diet. Adv liq per GI PPx. Hep SC Subjective: less confused. case d/w dr richardson. no events tele (interp by me) Objective: Vital Signs Temp Pulse Resp BP Pulse Ox 37.2 C 107 H 16 118/62 96 10/01/16 15:34 10/01/16 15:34 10/01/16 15:34 10/01/16 15:34 10/01/16 15:34 Laboratory Results 10/01/16 05:00 10/01/16 05:00 09/30/16 10/01/16 10/02/16 05:59 05:59 05:59 Intake Total 1482.2 Output Total 2300 25 Balance -817.8 -25 PT 15.4 SEC (12.0-15.0) H 10/01/16 05:00 INR 1.22 (0.83-1.16) H 10/01/16 05:00 - Physical Exam Constitutional: no apparent distress, appears nourished, other (alert, perseverative) Eyes: anicteric sclera Ears, Nose, Mouth, Throat: moist mucous membranes, hearing normal Cardiovascular: regular rate and rhythym, no murmur, rub, or gallop Respiratory: no respiratory distress, no rales or rhonchi Gastrointestinal: normoactive bowel sounds, soft, non-tender abdomen Genitourinary: No dean in urethra Skin: warm, normal color Musculoskeletal: full muscle strength Neurologic: AAOx3 ICD10 Worksheet Patient Problems: Problems Problem Status Onset Pancreatitis Acute
[2016-10-01] MEDS: TPN 1 EA BAG IV SCH (21:40)
[2016-10-02] MEDS ORDERED: HEPARIN 50,000 UNIT/10 ML VIAL ONE (01:45)
[2016-10-02] MEDS: LORazepam 2 MG/ML INJ IVP PRN (03:01)
[2016-10-02 04:25] LABS: ABSOLUTE NRBC COUNT 0.04 10^3/uL (0-0.01); ADD DIFF? YES; ADD MORPH? NO; ATYPICAL LYMPHOCYTE FLAG 90 (0-99); FRAGMENT RBC FLAG 0 (0-99); HEMOGLOBIN 8.7 g/dL (12.6-16.3); LIPEMIA HEMOLYSIS FLAG 90 (0-99); MEAN CELL HEMOGLOBIN 30.6 pg (27.9-34.1); MEAN CELL HEMOGLOBIN CONCENTR. 34.8 g/dL (32.4-36.7); MEAN PLATELET VOLUME 9.9 fL (8.7-11.7); NRBC-AUTO% 0.2 % (0.0-0.2); PLATELET CLUMPS FLAG 10 (0-99); PLATELET COUNT 157 10^3/uL (150-400); RED BLOOD CELL COUNT 2.84 10^6/uL (4.18-5.33); RED CELL DISTRIBUTION WIDTH 15.1 % (11.5-15.2)
[2016-10-02 04:29] LABS: ADD SCAN? NO; LEFT SHIFT FLG 300 (0-99)
[2016-10-02 04:40] LABS: INR 1.21 (0.83-1.16); PROTIME(PATIENT) 15.3 SEC (12.0-15.0)
[2016-10-02 04:43] LABS: ALANINE AMINOTRANSFERASE 39 IU/L (9-52); ALBUMIN 1.9 g/dL (3.5-5.0); ALKALINE PHOSPHATASE 112 IU/L (38-126); ANION GAP 7 mEq/L (8-16); ASPARTATE AMINOTRANSFERASE 44 IU/L (14-46); BILIRUBIN,TOTAL 1.2 mg/dL (0.1-1.4); CALCIUM 7.9 mg/dL (8.5-10.4); CARBON DIOXIDE 24 mEq/l (22-31); CHLORIDE 96 mEq/L (97-110); CREATININE 3.3 mg/dL (0.6-1.0); GLOMERULAR FILTRATION RATE 14; GLUCOSE 164 mg/dL (70-100); MAGNESIUM 1.7 mg/dL (1.6-2.3); POTASSIUM 3.9 mEq/L (3.5-5.2); SODIUM 127 mEq/L (134-144); TOTAL PROTEIN 4.8 g/dL (6.3-8.2)
[2016-10-02 05:13] LABS: PLATELET ESTIMATE ADEQUATE (ADEQ); POLYCHROMASIA 1+
[2016-10-02] MEDS: INSULIN REGULAR, HUMAN 100 UNIT/1 ML VIAL HIGH SC SCH ×4 (05:45→23:39)
[2016-10-02] MEDS: HEPARIN 5,000 UNIT/0.5 ML SYR SC SCH ×3 (05:46→21:21)
[2016-10-02] MEDS: IPRATROPIUM/ALBUTEROL 3 ML DEYVIAL IH SCH ×4 (05:57→23:26)
[2016-10-02] MEDS: PANTOPRAZOLE SODIUM 40 MG in NS 100 ML IV SCH (09:02)
[2016-10-02] MEDS: OXYMETAZOLINE 30 ML NASAL SPRAY EACHNARE SCH ×2 (09:04→21:08)
--- NOTE | 2016-10-02 13:54 | SOAPPROG ---
THOMAS Progress Note Assessment/Plan: Assessment:Plan: 10/01/16 12:18 looks better today, more alert, brighter 1) pancreatitis - slowly resolving, still with some increased pain with PO intake 2) LFT's - decreasing 3) ARF - as per renal, HD for fluid status 4) WBC - down a tad from yesterday, still with sig left shift but less band now on differential. If increases or if any fevers then repeat abdo imaging will follow 10/02/16 13:50 1) Pancreatitis - slow improvement in exam, I think it is resolving, but still may need to re-image her abdo - if she has consolidation on CXR that may explain her not improving as quickly as expected. 2) ARF - as per renal, HD for fluid overload 3) WBC - down a bit again, has some egophony in left mid lung will repeat CXR overall a bit more lethargic today her abdo exam is better as are some of her labs Subjective: CC- pancreatitis, ARF, abdo pain pt not as alert today sister in room with her sitting up more straight Objective: Vital Signs Temp Pulse Resp BP Pulse Ox 36.9 C 106 H 25 H 154/74 H 97 10/02/16 12:00 10/02/16 12:00 10/02/16 12:00 10/02/16 12:00 10/02/16 12:00 Laboratory Results 10/02/16 04:10 10/02/16 04:10 10/01/16 10/02/16 10/03/16 05:59 05:59 05:59 Intake Total 1482.2 1927.1 Output Total 2300 2575 Balance -817.8 -647.9 PT 15.3 SEC (12.0-15.0) H 10/02/16 04:10 INR 1.21 (0.83-1.16) H 10/02/16 04:10 Alert but a bit lethargic Egophony left mid lung field S1S2 +BS, soft, less tender but still c/o epi pain ICD10 Worksheet Patient Problems: Problems Problem Status Onset Pancreatitis Acute
--- NOTE | 2016-10-02 16:34 | SOAPPROG ---
SOAP Progress Note Assessment/Plan: Assessment: 1. arf: presumed ischemic atn, remains oliguric and overloaded. Hd tomorrow. 2. HypoNa: relatively stable in high 120's, tpn is hypotonic therefore could increase [Na] in this if doesn't trend upward. 3. Overload: uf on hd 4. pancreatitis: on tpn Plan: 10/02/16 16:31 Subjective: s/p hd yesterday. Feels "terrible". C/o L knee pain. Objective: Vital Signs Temp Pulse Resp BP Pulse Ox 36.9 C 106 H 25 H 154/74 H 97 10/02/16 12:00 10/02/16 12:00 10/02/16 12:00 10/02/16 12:00 10/02/16 12:00 Laboratory Results 10/02/16 04:10 10/02/16 04:10 10/01/16 10/02/16 10/03/16 05:59 05:59 05:59 Intake Total 1482.2 1927.1 Output Total 2300 2575 Balance -817.8 -647.9 PT 15.3 SEC (12.0-15.0) H 10/02/16 04:10 INR 1.21 (0.83-1.16) H 10/02/16 04:10 Physical Exam - Physical Exam General Appearance: no apparent distress Respiratory: lungs clear (anteriorly) Cardiac/Chest: regular rate, rhythm Extremities: swelling (LE/dependent edema) ICD10 Worksheet Patient Problems: Problems Problem Status Onset Pancreatitis Acute
[2016-10-02] MEDS ORDERED: CEFEPIME HCL 1 GM in D5W 50 ML IV ONE (18:30)
[2016-10-02] MEDS: TPN 1 EA BAG IV SCH (21:21)
[2016-10-02 22:01] LABS: POTASSIUM 3.9 mEq/L (3.5-5.2)
--- NOTE | 2016-10-02 22:41 | HOSPPROG ---
Hospitalist Progress Note Assessment/Plan: 66-year-old female presents with acute pancreatitis following liver biopsy Plan: # acute encephalopathy: this has been the biggest issue today, globally weak, somnolent though oriented when aroused. Thought to be medication related though no improvement off of [employer]ESS [employer]. ? new infection as below versus med effect slow to clear given anish. Non focal neuro exam. Monitoring. # Acute severe pancreatitis. s/p liver biopsy with GI following and thought to be 2/2 hemobilia. Abd pain improved. Still not tolerating PO. #. ANISH. 2/2 ATN in setting of hypoperfusion from acute pancreatitis, HD on Mondary with 2L off, today does seem to be more volume up again though otherwise no indication for HD today. UOP improving. # SIRS/sepsis: tachy with continued elevated wbc, cxr with bibasilar infiltrates that are likely atelectasis but difficult to exlude PNA. Given worsening mental status as well, will treat for suspected pna as next. blood, sputum and urine cultures pending # pulmonary infiltrates: as above, atelectasis versus concurrent pna. ON personal reivew of cxr, left sided infiltrate more prominent than prior. Started on cefepime for hcap coverage. # Metabolic acidosis. 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 Cough + diffuse expiratory wheezes, no tob hx or hx of COPD cont on scheduled duonebs, improving # DM. Glyburide held while NPO, cont q6h SSI # Hypocalcemia. 2/2 pancreatitis, q6h replacement Diet. NPO, TPN Patient new to my care. Further hx obtaiend from pfamily present at bedside. CAre plan reviewed with GI/pulmonary. Subjective: patient more somnolent, more edemaouts today, having a hard time staying awake, only able to stand breifely Objective: Vital Signs Temp Pulse Resp BP Pulse Ox 36.4 C 96 24 H 139/61 H 97 10/02/16 20:00 10/02/16 20:00 10/02/16 20:00 10/02/16 20:00 10/02/16 20:00 Laboratory Results 10/02/16 04:10 10/02/16 21:30 10/01/16 10/02/16 10/03/16 05:59 05:59 05:59 Intake Total 1482.2 1927.1 965 Output Total 2300 2575 Balance -817.8 -647.9 965 PT 15.3 SEC (12.0-15.0) H 10/02/16 04:10 INR 1.21 (0.83-1.16) H 10/02/16 04:10 somnolent but arousable anicteric op clear tachy regular de bs at bases normal wbo soft obese 1+ pitting edema ble warm dry well perfused oriented but somnolent - Time Spent With Patient Time Spent with Patient: greater than 35 minutes Time Spent with Patient: Greater than 35 minutes spent on this patients care, greater than 50% of time spent counseling, educating, and coordinating care regarding the above mentioned plan. ICD10 Worksheet Patient Problems: Problems Problem Status Onset Pancreatitis Acute
[2016-10-03] MEDS: LORazepam 2 MG/ML INJ IVP PRN (00:19)
[2016-10-03] MEDS: HEPARIN 5,000 UNIT/0.5 ML SYR SC SCH ×3 (05:20→21:05)
[2016-10-03] MEDS: IPRATROPIUM/ALBUTEROL 3 ML DEYVIAL IH SCH ×3 (05:42→16:45)
[2016-10-03] MEDS: INSULIN REGULAR, HUMAN 100 UNIT/1 ML VIAL HIGH SC SCH ×3 (05:46→18:41)
[2016-10-03 06:05] LABS: ABSOLUTE NRBC COUNT 0.03 10^3/uL (0-0.01); ADD DIFF? YES; ADD MORPH? NO; ATYPICAL LYMPHOCYTE FLAG 60 (0-99); FRAGMENT RBC FLAG 0 (0-99); HEMATOCRIT 24.2 % (38.0-47.0); HEMOGLOBIN 8.6 g/dL (12.6-16.3); LIPEMIA HEMOLYSIS FLAG 90 (0-99); MEAN CELL HEMOGLOBIN 31.3 pg (27.9-34.1); MEAN CELL HEMOGLOBIN CONCENTR. 35.5 g/dL (32.4-36.7); MEAN PLATELET VOLUME 10.1 fL (8.7-11.7); NRBC-AUTO% 0.1 % (0.0-0.2); PLATELET CLUMPS FLAG 10 (0-99); PLATELET COUNT 176 10^3/uL (150-400); RED BLOOD CELL COUNT 2.75 10^6/uL (4.18-5.33); RED CELL DISTRIBUTION WIDTH 14.8 % (11.5-15.2)
[2016-10-03 06:13] LABS: ANION GAP 10 mEq/L (8-16); CARBON DIOXIDE 22 mEq/l (22-31); CHLORIDE 95 mEq/L (97-110); CREATININE 4.5 mg/dL (0.6-1.0); GLOMERULAR FILTRATION RATE 10; GLUCOSE 154 mg/dL (70-100); MAGNESIUM 1.7 mg/dL (1.6-2.3); SODIUM 127 mEq/L (134-144)
[2016-10-03 06:15] LABS: LEFT SHIFT FLG 300 (0-99)
[2016-10-03 06:16] LABS: ADD SCAN? NO
[2016-10-03 06:41] LABS: PLATELET ESTIMATE ADEQUATE (ADEQ); POLYCHROMASIA 1+
--- NOTE | 2016-10-03 08:48 | SOAPPROG ---
SOAP Progress Note Assessment/Plan: Assessment: 1. ANISH. ATN due to hypotension, possibly contrast. Receiving daily dialysis, # 3 today. BUN/Cr still rising, on TPN. Oliguric, volume overloaded. Will plan dialysis again tomorrow. 2. Pancreatitis. Continue supportive care. 3. AMS. Multifactorial. Eval per primary service. Plan: 10/03/16 08:45 10/03/16 08:46 10/03/16 08:48 Subjective: Pt seen and examined on dialysis. Confused. Objective: Vital Signs Temp Pulse Resp BP Pulse Ox 36.7 C 88 20 151/62 H 97 10/03/16 08:00 10/03/16 08:00 10/03/16 08:00 10/03/16 08:00 10/03/16 08:00 Laboratory Results 10/03/16 05:25 10/03/16 05:25 10/02/16 10/03/16 10/04/16 05:59 05:59 05:59 Intake Total 1927.1 1965 Output Total 2575 Balance -647.9 1965 PT 15.3 SEC (12.0-15.0) H 10/02/16 04:10 INR 1.21 (0.83-1.16) H 10/02/16 04:10 Confused wf on dialysis Qb 350 Very sleepy. Oriented only to city, unsure what hospital RRR, no m/g/r CTAB Abdom soft, decreased bowel sounds, mildly distended. No r/g 2+ LE pitting edema ICD10 Worksheet Patient Problems: Problems Problem Status Onset Pancreatitis Acute
[2016-10-03] MEDS ORDERED: CEFEPIME HCL 1 GM in D5W 50 ML IV SCH ×2 (09:00→21:00)
--- NOTE | 2016-10-03 11:49 | SOAPPROG ---
SOAP Progress Note Assessment/Plan: Assessment:Plan: 10/01/16 12:18 looks better today, more alert, brighter 1) pancreatitis - slowly resolving, still with some increased pain with PO intake 2) LFT's - decreasing 3) ARF - as per renal, HD for fluid status 4) WBC - down a tad from yesterday, still with sig left shift but less band now on differential. If increases or if any fevers then repeat abdo imaging will follow 10/02/16 13:50 1) Pancreatitis - slow improvement in exam, I think it is resolving, but still may need to re-image her abdo - if she has consolidation on CXR that may explain her not improving as quickly as expected. 2) ARF - as per renal, HD for fluid overload 3) WBC - down a bit again, has some egophony in left mid lung will repeat CXR overall a bit more lethargic today her abdo exam is better as are some of her labs 10/03/16 11:48 on abx for poss infiltrate on CXR currently sleeping in dialysis I will return to see her this afternoon 10/03/16 18:52 saw pt earlier when in bed 1) pancreatitis - less pain, slow improvement, may try liquids 2) ARF - as per renal, less fluid overload s/p HD 3) Pulm - on abx for LLL infiltrate, still with egophony on exam seems better with abx for infiltrate, tired after HD and ambulation Subjective: cc- pancreatitis, LL infiltrate pt a bit tired but not as lethargic as yesterday here abdo exam is improving Objective: Vital Signs Temp Pulse Resp BP Pulse Ox 36.7 C 88 20 151/62 H 97 10/03/16 08:00 10/03/16 08:00 10/03/16 08:00 10/03/16 08:00 10/03/16 08:00 Laboratory Results 10/03/16 05:25 10/03/16 05:25 10/02/16 10/03/16 10/04/16 05:59 05:59 05:59 Intake Total 1927.1 1965 Output Total 2575 Balance -647.9 1965 PT 15.3 SEC (12.0-15.0) H 10/02/16 04:10 INR 1.21 (0.83-1.16) H 10/02/16 04:10 Alert and arousable CTA right some E to A change left base +BS, soft, mild discomfort S1S2 ICD10 Worksheet Patient Problems: Problems Problem Status Onset Pancreatitis Acute
[2016-10-03] MEDS ORDERED: NS 1,000 ML IV SCH (13:00)
[2016-10-03] MEDS: PANTOPRAZOLE SODIUM 40 MG in NS 100 ML IV SCH (13:00)
[2016-10-03] MEDS: OXYMETAZOLINE 30 ML NASAL SPRAY EACHNARE SCH ×2 (14:04→21:05)
[2016-10-03 15:18] LABS: IONIZED CALCIUM 1.17 MMOL/L (1.12-1.30)
--- NOTE | 2016-10-03 16:48 | HOSPPROG ---
Hospitalist Progress Note Assessment/Plan: 66-year-old female presents with acute pancreatitis following liver biopsy Plan: # acute encephalopathy: improving slightly today though remains very somnolent and minimally interactive, oriented x 3 when awake however. Continue to minimize sedating meds, treating issues as below # Acute severe pancreatitis. s/p liver biopsy with GI following and thought to be 2/2 hemobilia. Abd pain improved--will dc GROUP HOME WORKER for IVP dilaudid. Patient states she is hungry today, first time she has said this. Will start clear liquids. Still on TPN> #. ANISH. 2/2 ATN in setting of hypoperfusion from acute pancreatitis, HD performed again today and volume removed which she tolerated well other than somnolence. Remains oliguric and volume overloaded, HD as needed per renal. # SIRS/sepsis: tachy with continued elevated wbc, cxr with bibasilar infiltrates that are likely atelectasis but difficult to exlude PNA. Given worsening mental status as well, will treat for suspected pna as next. blood, sputum and urine cultures pending # pulmonary infiltrates: as above, atelectasis versus concurrent pna. ON personal reivew of cxr, left sided infiltrate more prominent than prior. Started on cefepime for hcap coverage, now day 2, cultures pending. # deconditioning: has not been able to ambulate much, quite weak, working on getting oob with nursing and ambulating tid, baron likely need snf # Metabolic acidosis. 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 Cough + diffuse expiratory wheezes, no tob hx or hx of COPD cont on scheduled duonebs, improving # DM. Glyburide held while NPO, cont q6h SSI # Hypocalcemia. 2/2 pancreatitis, q6h replacement Diet. NPO, TPN Care plan reviewed with Dr. Maza on multidisciplinary team rounds. Further hx obtained from patients present at [facility]. Subjective: no significant overnight events, patient somnolent but otherwise notes abd pain better, now hungry Objective: Vital Signs Temp Pulse Resp BP Pulse Ox 36.7 C 95 22 H 164/68 H 99 10/03/16 16:00 10/03/16 16:00 10/03/16 16:00 10/03/16 16:00 10/03/16 16:00 Laboratory Results 10/03/16 05:25 10/03/16 05:25 10/02/16 10/03/16 10/04/16 05:59 05:59 05:59 Intake Total 1927.1 1965 Output Total 2575 Balance -647.9 1965 PT 15.3 SEC (12.0-15.0) H 10/02/16 04:10 INR 1.21 (0.83-1.16) H 10/02/16 04:10 somnolent but arousable anicteric op clear tachy regular de bs at bases normal wbo soft obese 1+ pitting edema ble warm dry well perfused oriented but somnolent - Time Spent With Patient Time Spent with Patient: greater than 35 minutes Time Spent with Patient: Greater than 35 minutes spent on this patients care, greater than 50% of time spent counseling, educating, and coordinating care regarding the above mentioned plan. ICD10 Worksheet Patient Problems: Problems Problem Status Onset Pancreatitis Acute
[2016-10-03] MEDS: CEFEPIME HCL 1 GM in D5W 50 ML IV SCH (18:39)
[2016-10-03] MEDS ORDERED: HEPARIN 50,000 UNIT/10 ML VIAL ONE (21:00)
[2016-10-03] MEDS: TPN 1 EA BAG IV SCH (21:04)
[2016-10-03] MEDS: HYDROmorphONE/DILAUDID 1 MG/ML SYR IVP PRN (23:11)
[2016-10-04] MEDS: IPRATROPIUM/ALBUTEROL 3 ML DEYVIAL IH SCH ×5 (00:41→22:56)
[2016-10-04] MEDS: LORazepam 2 MG/ML INJ IVP PRN ×2 (00:43→13:55)
[2016-10-04] MEDS: HYDROmorphONE/DILAUDID 1 MG/ML SYR IVP PRN ×6 (01:08→21:36)
[2016-10-04] MEDS: INSULIN REGULAR, HUMAN 100 UNIT/1 ML VIAL HIGH SC SCH ×4 (01:08→18:01)
[2016-10-04] MEDS: HEPARIN 5,000 UNIT/0.5 ML SYR SC SCH ×3 (05:39→21:36)
[2016-10-04 06:20] LABS: ADD DIFF? YES; ADD MORPH? NO; ADD SCAN? YES; ATYPICAL LYMPHOCYTE FLAG 30 (0-99); FRAGMENT RBC FLAG 0 (0-99); HEMATOCRIT 23.5 % (38.0-47.0); HEMOGLOBIN 8.2 g/dL (12.6-16.3); LIPEMIA HEMOLYSIS FLAG 90 (0-99); MEAN CELL HEMOGLOBIN 30.9 pg (27.9-34.1); MEAN CELL HEMOGLOBIN CONCENTR. 34.9 g/dL (32.4-36.7); MEAN CELL VOLUME 88.7 fL (81.5-99.8); MEAN PLATELET VOLUME 9.8 fL (8.7-11.7); PLATELET CLUMPS FLAG 10 (0-99); PLATELET COUNT 153 10^3/uL (150-400); RED BLOOD CELL COUNT 2.65 10^6/uL (4.18-5.33); RED CELL DISTRIBUTION WIDTH 15.3 % (11.5-15.2)
[2016-10-04 06:31] LABS: LEFT SHIFT FLG 300 (0-99)
[2016-10-04 06:32] LABS: ALBUMIN 2.1 g/dL (3.5-5.0); ANION GAP 8 mEq/L (8-16); CALCIUM 8.4 mg/dL (8.5-10.4); CARBON DIOXIDE 21 mEq/l (22-31); CHLORIDE 97 mEq/L (97-110); CREATININE 3.7 mg/dL (0.6-1.0); GLOMERULAR FILTRATION RATE 12; GLUCOSE 353 mg/dL (70-100); MAGNESIUM 1.8 mg/dL (1.6-2.3); POTASSIUM 3.8 mEq/L (3.5-5.2); SODIUM 126 mEq/L (134-144)
[2016-10-04 07:10] LABS: PLATELET ESTIMATE DECREASED (ADEQ); POLYCHROMASIA 1+
--- NOTE | 2016-10-04 09:49 | SOAPPROG ---
SOAP Progress Note Assessment/Plan: Assessment/Plan: ANISH: pt with oliguric ANISH in setting of pancreatitis, likely has ATN. She remains oliguric, HD last done yesterday. - Will do HD again today. - Will not plan on HD tomorrow but will continue to assess her dialysis needs and monitor for recovery. She likely will need HD again on Saturday. - Avoid MOM, morphine, demerol, NSAIDs, contrast, aminoglycosides, fleets, and other nephrotoxins. Hypervolemia: improving with HD, will continue to modulate on HD today. Hyponatremia: Na 126 in setting of hypervolemia. - Will help modulate with HD. - Would recommend concentrating TPN. - Will continue to monitor. Subjective: No acute events overnight. Pt states that she is having trouble sleeping. She is feeling hungry, tolerated clears yesterday. She has some mild tenderness in her abdomen but pain is better overall. She denies any N/V. She notes that her thinking is slowly improving, less foggy. Objective: Vital Signs Temp Pulse Resp BP Pulse Ox 37.0 C 94 16 141/83 H 100 10/04/16 08:44 10/04/16 08:44 10/04/16 08:44 10/04/16 08:44 10/04/16 08:44 Laboratory Results 10/04/16 05:40 10/04/16 05:40 10/03/16 10/04/16 10/05/16 05:59 05:59 05:59 Intake Total 1964 2199 Output Total 75 Balance 19644 PT 15.3 SEC (12.0-15.0) H 10/02/16 04:10 INR 1.21 (0.83-1.16) H 10/02/16 04:10 General: alert and oriented, no acute distress Eyes; EOMI, PERRL OP: Clear CV: RRR Resp: nonlabored respirations on NC Abd; SOft, mild diffuse TTP with no guarding or rebound or rigidity Ext: +1 edema BLE Neuro: CN II-XII grossly intact, no asterixis Psych: cooperative, flat affect Access: R IJ temp cath ICD10 Worksheet Patient Problems: Problems Problem Status Onset Pancreatitis Acute
[2016-10-04] MEDS: OXYMETAZOLINE 30 ML NASAL SPRAY EACHNARE SCH ×2 (09:56→21:37)
[2016-10-04 11:11] LABS: SCAN POSITIVE
--- NOTE | 2016-10-04 12:55 | SOAPPROG ---
SOAP Progress Note Assessment/Plan: Assessment:Plan: 10/02/16 13:50 1) Pancreatitis - slow improvement in exam, I think it is resolving, but still may need to re-image her abdo - if she has consolidation on CXR that may explain her not improving as quickly as expected. 2) ARF - as per renal, HD for fluid overload 3) WBC - down a bit again, has some egophony in left mid lung will repeat CXR overall a bit more lethargic today her abdo exam is better as are some of her labs 10/03/16 11:48 on abx for poss infiltrate on CXR currently sleeping in dialysis I will return to see her this afternoon 10/03/16 18:52 saw pt earlier when in bed 1) pancreatitis - less pain, slow improvement, may try liquids 2) ARF - as per renal, less fluid overload s/p HD 3) Pulm - on abx for LLL infiltrate, still with egophony on exam seems better with abx for infiltrate, tired after HD and ambulation 10/04/16 12:51 1) pancreatitis - improving, tolerated some liquids yesterday, would like to see her take in more prior to advancing diet 2) ARF/Fluid - as per renal, for more HD today to remove fluid 3) Pulm - on abx for infiltrate no change in plan I am optimistic that we will be able to advance her diet soon I do think the abx have helped Dr. Aldana to take over inpt service at 7am tomorrow Subjective: cc- pancreatitis, arf, fluid overload, infiltrate on cxr pt says she had no increased pain with liquids po RN says she really didn't drink that much Objective: Vital Signs Temp Pulse Resp BP Pulse Ox 36.7 C 95 23 H 158/67 H 100 10/04/16 12:00 10/04/16 12:00 10/04/16 12:00 10/04/16 12:00 10/04/16 12:00 Laboratory Results 10/04/16 05:40 10/04/16 05:40 10/03/16 10/04/16 10/05/16 05:59 05:59 05:59 Intake Total 1965 2199 Output Total 75 300 Balance 1964 2124 -300 PT 15.3 SEC (12.0-15.0) H 10/02/16 04:10 INR 1.21 (0.83-1.16) H 10/02/16 04:10 Alert and arousable but tired coarse breath sound anteriorly S1S2, RRR +BS, soft minimal tenderness (almost none when press with stethoscope), no r/g ICD10 Worksheet Patient Problems: Problems Problem Status Onset Pancreatitis Acute
--- NOTE | 2016-10-04 16:44 | HOSPPROG ---
Hospitalist Progress Note Assessment/Plan: 66-year-old female presents with acute pancreatitis following liver biopsy Plan: # acute encephalopathy: continues to improve though remains somnolent, largely delerium # Acute severe pancreatitis. s/p liver biopsy with GI following and thought to be 2/2 hemobilia. Abd pain improved, advancing diet, continue tpn for now #. ANISH. 2/2 ATN in setting of hypoperfusion from acute pancreatitis, continue prn HD largely for volume mgmt, renal following # SIRS/sepsis: improving though wbc remains elevated, related to pna as well as pancreatitis # pulmonary infiltrates: as above, atelectasis versus concurrent pna. ON personal reivew of cxr, left sided infiltrate more prominent than prior. Started on cefepime for hcap coverage, monitoring clinically # deconditioning: has not been able to ambulate much, quite weak, working on getting oob with nursing and ambulating tid, baron likely need snf # Metabolic acidosis. 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 Cough + diffuse expiratory wheezes, no tob hx or hx of COPD cont on scheduled duonebs, improving # DM. Glyburide held while NPO, cont q6h SSI # Hypocalcemia. 2/2 pancreatitis, resolved Diet. NPO, TPN Care plan reviewed with GI. Subjective: no significant overnight events, patient feeling better, she is still somnolent Objective: Vital Signs Temp Pulse Resp BP Pulse Ox 36.7 C 93 18 158/67 H 100 10/04/16 12:00 10/04/16 15:14 10/04/16 15:14 10/04/16 12:00 10/04/16 15:14 Laboratory Results 10/04/16 05:40 10/04/16 05:40 10/03/16 10/04/16 10/05/16 05:59 05:59 05:59 Intake Total 1965 2199 Output Total 75 300 Balance 1964 2124 -300 PT 15.3 SEC (12.0-15.0) H 10/02/16 04:10 INR 1.21 (0.83-1.16) H 10/02/16 04:10 somnolent but arousable anicteric op clear tachy regular de bs at bases normal wbo soft obese 1+ pitting edema ble warm dry well perfused oriented but somnolent - Time Spent With Patient Time Spent with Patient: greater than 35 minutes Time Spent with Patient: Greater than 35 minutes spent on this patients care, greater than 50% of time spent counseling, educating, and coordinating care regarding the above mentioned plan. ICD10 Worksheet Patient Problems: Problems Problem Status Onset Pancreatitis Acute
[2016-10-04] MEDS: PANTOPRAZOLE SODIUM 40 MG in NS 100 ML IV SCH (18:02)
[2016-10-04] MEDS: CEFEPIME HCL 1 GM in D5W 50 ML IV SCH (18:46)
[2016-10-04 20:19] LABS: IONIZED CALCIUM 1.12 MMOL/L (1.12-1.30)
[2016-10-04] MEDS: TPN 1 EA BAG IV SCH (21:36)
[2016-10-04] MEDS ORDERED: CALCIUM GLUCONATE 50 ML IV ONE (21:59)
[2016-10-05] MEDS: HYDROmorphONE/DILAUDID 1 MG/ML SYR IVP PRN ×10 (00:05→22:04)
[2016-10-05] MEDS: LORazepam 2 MG/ML INJ IVP PRN (00:20)
[2016-10-05] MEDS: INSULIN REGULAR, HUMAN 100 UNIT/1 ML VIAL HIGH SC SCH ×4 (00:39→17:43)
[2016-10-05 03:57] LABS: ANION GAP 7 mEq/L (8-16); CALCIUM 8.3 mg/dL (8.5-10.4); CARBON DIOXIDE 23 mEq/l (22-31); CHLORIDE 99 mEq/L (97-110); CREATININE 2.8 mg/dL (0.6-1.0); GLOMERULAR FILTRATION RATE 17; GLUCOSE 113 mg/dL (70-100); MAGNESIUM 1.7 mg/dL (1.6-2.3); POTASSIUM 3.7 mEq/L (3.5-5.2); SODIUM 129 mEq/L (134-144)
[2016-10-05] MEDS: IPRATROPIUM/ALBUTEROL 3 ML DEYVIAL IH SCH ×4 (06:12→22:30)
[2016-10-05] MEDS: HEPARIN 5,000 UNIT/0.5 ML SYR SC SCH ×3 (06:17→21:19)
[2016-10-05] MEDS: OXYMETAZOLINE 30 ML NASAL SPRAY EACHNARE SCH ×2 (10:00→21:18)
[2016-10-05] MEDS ORDERED: PROTOCOL CALCIUM 1 DOSE IV PRN (10:40)
[2016-10-05] MEDS ORDERED: FUROSEMIDE 40 MG/4 ML VIAL IVP ONE (10:52)
--- NOTE | 2016-10-05 10:52 | SOAPPROG ---
SOAP Progress Note Assessment/Plan: Assessment/Plan: ANISH: pt with oliguric ANISH in setting of pancreatitis, likely has ATN. She remains oliguric but may be starting to make more urine. HD last done yesterday. - Will plan on next HD tomorrow. - Will continue to assess her dialysis needs and monitor for recovery. - Avoid MOM, morphine, demerol, NSAIDs, contrast, aminoglycosides, fleets, and other nephrotoxins. Hypervolemia: improving with HD. - Will give a dose of Lasix today. - Will continue to modulate on HD and monitor. Hyponatremia: Na 129 in setting of hypervolemia. - Will help modulate with HD. - Would recommend concentrating TPN. - Will continue to monitor. Subjective: No acute events overnight. Pt had HD yesterday, tolerated well. Pt still with some swelling but thinks it has improved, is trying to get out of bed more, currently sitting up in chair. Her breathing is mostly comfortable now. Objective: Vital Signs Temp Pulse Resp BP Pulse Ox 36.8 C 89 23 H 137/65 H 97 10/05/16 07:27 10/05/16 07:27 10/05/16 07:27 10/05/16 07:27 10/05/16 07:27 Laboratory Results 10/04/16 05:40 10/05/16 03:15 10/04/16 10/05/16 10/06/16 05:59 05:59 05:59 Intake Total 2199 1135 103 Output Total 75 400 Balance 2124 735 103 PT 15.3 SEC (12.0-15.0) H 10/02/16 04:10 INR 1.21 (0.83-1.16) H 10/02/16 04:10 General: alert and oriented, no acute distress Eyes; EOMI, PERRL OP: Clear CV: RRR Resp: nonlabored respirations on NC Abd; soft, NT Ext: +1 edema BLE neuro; CN II-XII Grossly intact, no asterixis Psych: cooperative, appropriate mood and affect ICD10 Worksheet Patient Problems: Problems Problem Status Onset Pancreatitis Acute
[2016-10-05 11:10] LABS: IONIZED CALCIUM 1.35 MMOL/L (1.12-1.30)
--- NOTE | 2016-10-05 14:46 | HOSPPROG ---
Hospitalist Progress Note Assessment/Plan: 66-year-old female presents with acute pancreatitis following liver biopsy Plan: # acute encephalopathy: continues to improve though remains somnolent, suspect largely due to hypoactive delirium in setting of long hospital stay, pain and anxiety medications etc. Significantly improved. Continue to minimize sedating meds as we are able. # Acute severe pancreatitis. s/p liver biopsy with GI following and thought to be 2/2 hemobilia. Abd pain improved, tolerating clears without any increase in pain, continue tpn for now #. ANISH. 2/2 ATN in setting of hypoperfusion from acute pancreatitis, urine output increasing slightly though still oliguric. Continue HD for now.Lasix increased # SIRS/sepsis: improving though wbc remains elevated, no change really since starting abx. cultures with ngtd. Afebrile. # pulmonary infiltrates: as above, atelectasis versus concurrent pna. Started on cefepime with ? of some improvement in mental status. Will repeat cxr in am. Continue IS, OOB to chair, ambulation tid. # deconditioning: has not been able to ambulate much, quite weak, working on getting oob with nursing and ambulating tid, will likely need snf # Metabolic acidosis. 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 Cough + diffuse expiratory wheezes, no tob hx or hx of COPD cont on scheduled duonebs, improving # DM. Glyburide held while NPO, cont q6h SSI # Hypocalcemia. 2/2 pancreatitis, resolved Diet. clears, TPN Dispo: IP status, discharge date unclear-- ongoing HD needs to be clarified Subjective: no significant overnight events, patient currently feeling a bit better at least in terms of being more alert, she is sitting in a chair, has tolerated clears but not taking much in and does not feel hungry Objective: Vital Signs Temp Pulse Resp BP Pulse Ox 36.9 C 88 24 H 164/78 H 97 10/05/16 12:00 10/05/16 12:00 10/05/16 12:00 10/05/16 12:00 10/05/16 12:00 Laboratory Results 10/04/16 05:40 10/05/16 03:15 10/04/16 10/05/16 10/06/16 05:59 05:59 05:59 Intake Total 2199 1135 103 Output Total 75 400 250 Balance 2124 735 -147 PT 15.3 SEC (12.0-15.0) H 10/02/16 04:10 INR 1.21 (0.83-1.16) H 10/02/16 04:10 awake and alert, somnolent but staying awake to talk anicteric op clear tachy regular de bs at bases normal wbo distended, slightly firm, diffuse ttp, no rebound or guarding 1+ pitting edema ble warm dry well perfused oriented but somnolent - Time Spent With Patient Time Spent with Patient: greater than 35 minutes Time Spent with Patient: Greater than 35 minutes spent on this patients care, greater than 50% of time spent counseling, educating, and coordinating care regarding the above mentioned plan. ICD10 Worksheet Patient Problems: Problems Problem Status Onset Pancreatitis Acute
--- NOTE | 2016-10-05 15:12 | SOAPPROG ---
SOAP Progress Note Assessment/Plan: Assessment: Pancreatitis, s/p liver biopsy. Presumed from clot in bile duct. Plan: 1. Still with upper abdominal pain. Seems to be worse with PO liquids. Would not advance diet today 2. Continue supportive care 3. HD per renal 4. Repeat labs in AM, LFTs and lipase 10/05/16 15:09 Subjective: CC: Pancreatitis, abdominal pain Patient with some increased abdominal pain with liquid PO intake Objective: Vital Signs Temp Pulse Resp BP Pulse Ox 36.9 C 88 24 H 164/78 H 97 10/05/16 12:00 10/05/16 12:00 10/05/16 12:00 10/05/16 12:00 10/05/16 12:00 Laboratory Results 10/04/16 05:40 10/05/16 03:15 10/04/16 10/05/16 10/06/16 05:59 05:59 05:59 Intake Total 2199 1135 103 Output Total 75 400 250 Balance 2124 735 -147 PT 15.3 SEC (12.0-15.0) H 10/02/16 04:10 INR 1.21 (0.83-1.16) H 10/02/16 04:10 Generic Name Dose Route Start Last Admin Trade Name Freq PRN Reason Stop Dose Admin Acetaminophen 650 mg 09/22/16 19:24 Tylenol Rectal AR 03/21/17 19:23 Q4 PRN Pain, Mild/Fever,Can't Take PO Albuterol/Ipratropium 3 ml 09/25/16 06:00 10/05/16 11:30 Duoneb IH 03/24/17 05:59 3 ml Q6HRS LISSET Administration Alteplase, Recombinant 2 mg 09/24/16 18:13 Cathflo Activase IVP 03/23/17 18:12 PRN PRN Per PICC line policy Calcium Gluconate 1 dose 10/05/16 10:40 Protocol Calcium IV 04/03/17 10:39 AD PRN Pt on Electrolyte Protocol Protocol Dextrose 25 gm 09/22/16 19:26 Dextrose 50% Syringe IVP 03/21/17 19:25 PRN PRN Hypoglycemia Heparin Sodium (Porcine) 5,000 unit 09/24/16 09:00 10/05/16 13:22 Heparin Sc Injection SC 03/23/17 08:59 5,000 unit 0600,1400,2200 LISSET Administration Hydromorphone HCl 0.2 mg 10/03/16 16:46 10/05/16 13:21 Dilaudid IVP 10/13/16 16:45 0.2 mg Q2HRS PRN Administration Pain, Severe Unable to Take PO Dextrose 1,000 mls @ 0 mls/hr 09/29/16 10:56 D10w IV 03/28/17 10:55 PRN PRN TPN interruption As Directed Cefepime HCl 1 gm/ Dextrose 50 mls @ 100 mls/hr 10/03/16 17:00 10/04/16 18:46 IV 11/02/16 16:59 50 mls DAILY@1700 LISSET Administration Sodium Chloride 1,000 mls @ 0 mls/hr 10/03/16 13:00 Ns IV 04/01/17 12:59 CONT LISSET As Directed Pantoprazole Sodium 40 mg/ 100 mls @ 200 mls/hr 10/05/16 18:00 Sodium Chloride IV 04/03/17 17:59 DAILY18 LISSET Insulin Human Regular 4 - 20 unit 10/01/16 08:30 10/05/16 12:12 Humulin R SC 03/30/17 08:29 4 units Q6 LISSET Administration Protocol Lorazepam 0.5 mg 09/25/16 22:44 10/05/16 00:20 Ativan Injection IVP 03/24/17 22:43 0.5 mg Q6H PRN Administration Anxiety, Unable to Take PO Naloxone HCl 0 mg 09/22/16 19:59 Narcan IVP 03/21/17 19:58 PRN PRN Respiratory depression Protocol Ondansetron HCl 4 mg 09/22/16 19:24 Zofran IVP 03/21/17 19:23 Q4 PRN Nausea/Vomiting, Can't Take PO Oxymetazoline HCl 2 sprays 09/30/16 10:30 10/05/16 10:00 Afrin Nasal [place] 03/29/17 10:29 2 sprays BID LISSET Administration Promethazine HCl 6.25 mg 09/22/16 19:24 Phenergan IVP 03/21/17 19:23 Q6 PRN Nausea/Vomiting, Can't Take PO Throat Lozenges 1 ea 09/26/16 18:09 Cepacol Lozenge PO 03/25/17 18:08 PRN PRN Sore Throat Total Parenteral Nutrition 1 ea 09/29/16 11:00 Pharmacy To DoseTpn MISC 03/28/17 10:59 AD LISSET Total Parenteral Nutrition 1 ea 09/29/16 21:00 10/04/16 21:36 Hyperalimentation IV 03/28/17 20:59 1 ea DAILY21 LISSET Administration Ursodiol 300 mg 09/22/16 21:00 09/24/16 21:07 Actigall PO 03/21/17 20:59 300 mg HS LISSET Administration Ursodiol 600 mg 09/23/16 09:00 09/25/16 10:57 Actigall PO 03/22/17 08:59 Not Given DAILY LISSET Discontinued Medications Generic Name Dose Route Start Last Admin Trade Name Freq PRN Reason Stop Dose Admin Albuterol Confirm 09/25/16 01:21 Proventil Neb Administered 09/25/16 01:22 Dose 3 ml .ROUTE .STK-MED ONE Azathioprine 50 mg 09/23/16 09:00 09/24/16 09:32 Imuran PO 03/22/17 08:59 Not Given DAILY LISSET Calcium Gluconate 1 dose 09/24/16 07:05 Protocol Calcium IV 03/23/17 07:04 AD PRN Pt on Electrolyte Protocol Protocol Diphenhydramine HCl 25 mg 09/25/16 14:51 09/25/16 21:32 Benadryl PO 03/24/17 14:50 25 mg Q6HRS PRN Administration Itching Enoxaparin Sodium 40 mg 09/23/16 09:00 09/23/16 09:09 Lovenox SC 03/22/17 08:59 Not Given DAILY LISSET Furosemide 40 mg 10/05/16 10:52 10/05/16 11:20 Lasix Injection IVP 10/05/16 10:53 40 mg ONCE ONE Administration Gadobutrol Confirm 09/23/16 09:45 Gadavist 1 Mmol/Ml Administered 09/23/16 09:46 Dose 10 ml IVP .STK-MED ONE Heparin Sodium (Porcine) Confirm 09/25/16 09:50 Heparin Sodium Administered 09/25/16 09:51 Dose 50,000 unit .ROUTE .STK-MED ONE Heparin Sodium (Porcine) 50,000 unit 09/26/16 18:57 Heparin Sodium .ROUTE 09/26/16 18:58 .STK-MED ONE Heparin Sodium (Porcine) 50,000 unit 09/30/16 21:12 Heparin Sodium .ROUTE 09/30/16 21:13 .STK-MED ONE Heparin Sodium (Porcine) 50,000 unit 09/30/16 21:16 Heparin Sodium .ROUTE 09/30/16 21:17 .STK-MED ONE Heparin Sodium (Porcine) 50,000 unit 10/02/16 01:45 Heparin Sodium .ROUTE 10/02/16 01:46 .STK-MED ONE Heparin Sodium (Porcine) 50,000 unit 10/03/16 21:00 Heparin Sodium .ROUTE 10/03/16 21:01 .STK-MED ONE Hydromorphone HCl 0.2 - 0.4 mg 09/22/16 19:09 09/22/16 19:17 Dilaudid IVP 10/02/16 19:08 0.4 mg Q2HRS PRN Administration Pain, Severe Unable to Take PO Hydromorphone HCl 0.5 - 1 mg 09/22/16 19:24 Dilaudid IVP 10/02/16 19:23 Q2HRS PRN Pain, Severe Unable to Take PO Hydromorphone HCl 0 mg 09/22/16 19:59 09/30/16 19:47 Dilaudid [employer] IV 10/02/16 19:58 6 mg PRN PRN Administration Pain, Severe Unable to Take PO Protocol Hydromorphone HCl 0 mg 10/01/16 10:58 10/01/16 17:22 Dilaudid [employer] IV 10/11/16 10:57 6 mg PRN PRN Administration Pain, Severe Unable to Take PO Protocol Sodium Chloride 1,000 mls @ 100 mls/hr 09/22/16 19:15 Ns IV 03/21/17 19:14 CONT LISSET Sodium Chloride 1,000 mls @ 0 mls/hr 09/22/16 19:02 09/22/16 19:46 Ns IV 09/22/16 19:03 1,000 mls ONCE ONE Administration Wide Open Famotidine/Sodium Chloride 50 mls @ 200 mls/hr 09/22/16 21:00 Pepcid 20 Mg (Premix) IV 03/21/17 20:59 Q12HRS LISSET Sodium Chloride 1,000 mls @ 100 mls/hr 09/22/16 19:30 09/26/16 20:38 Ns IV 03/21/17 19:29 1,000 mls CONT LISSET Administration Pantoprazole Sodium 40 mg/ 100 mls @ 200 mls/hr 09/23/16 09:00 09/26/16 14:39 Sodium Chloride IV 03/22/17 08:59 100 mls DAILY LISSET Administration Piperacillin/Tazobactam/Dextrose 50 mls @ 100 mls/hr 09/23/16 18:00 09/24/16 14:27 Zosyn 3.375 Gm (Premix) IV 10/23/16 17:59 50 mls Q6HRS LISSET Administration Protocol Calcium Gluconate 2 gm/ Sodium 70 mls @ 140 mls/hr 09/24/16 08:35 09/24/16 10 :52 Chloride IV 09/24/16 09:04 70 mls ONCE ONE Administration Sodium Chloride 1,000 mls @ 0 mls/hr 09/24/16 10:09 09/24/16 10:52 Ns IV 09/24/16 10:10 1,000 mls ONCE ONE Administration Wide Open Piperacillin/Tazobactam/Dextrose 50 mls @ 100 mls/hr 09/24/16 18:00 09/26/16 14:39 Zosyn 2.25 Gm (Premix) IV 10/24/16 17:59 50 mls Q6 LISSET Administration Calcium Gluconate 2 gm/ Sodium 70 mls @ 140 mls/hr 09/24/16 18:23 09/24/16 19 :29 Chloride IV 09/24/16 18:52 70 mls ONCE ONE Administration Calcium Gluconate 2 gm/ Sodium 70 mls @ 140 mls/hr 09/24/16 22:16 09/24/16 22 :41 Chloride IV 09/24/16 22:45 70 mls ONCE ONE Administration Calcium Gluconate 2 gm/ Sodium 70 mls @ 140 mls/hr 09/25/16 02:22 09/25/16 02 :44 Chloride IV 09/25/16 02:51 70 mls ONCE ONE Administration Calcium Gluconate 2 gm/ Sodium 70 mls @ 140 mls/hr 09/25/16 06:45 09/25/16 07 :31 Chloride IV 09/25/16 07:14 70 mls ONCE ONE Administration Calcium Gluconate 2 gm/ Sodium 70 mls @ 140 mls/hr 09/25/16 10:37 09/25/16 11 :34 Chloride IV 09/25/16 11:06 70 mls ONCE ONE Administration Calcium Gluconate 2 gm/ Sodium 70 mls @ 140 mls/hr 09/25/16 14:56 09/25/16 15 :20 Chloride IV 09/25/16 15:25 70 mls ONCE ONE Administration Calcium Gluconate 2 gm/ Sodium 70 mls @ 140 mls/hr 09/25/16 18:12 09/25/16 19 :29 Chloride IV 09/25/16 18:41 70 mls ONCE ONE Administration Sodium Chloride 500 mls @ 0 mls/hr 09/25/16 18:30 09/25/16 17:45 Ns IV 09/25/16 18:31 500 mls ONCE ONE Administration Wide Open Calcium Gluconate 2 gm/ Sodium 70 mls @ 140 mls/hr 09/25/16 22:27 09/25/16 22 :39 Chloride IV 09/25/16 22:56 70 mls ONCE ONE Administration Calcium Gluconate 2 gm/ Sodium 70 mls @ 140 mls/hr 09/26/16 02:26 09/26/16 02 :36 Chloride IV 09/26/16 02:55 70 mls ONCE ONE Administration Calcium Gluconate 2 gm/ Sodium 70 mls @ 140 mls/hr 09/26/16 07:10 09/26/16 13 :43 Chloride IV 09/26/16 07:39 70 mls ONCE ONE Administration Pantoprazole Sodium 40 mg/ 100 mls @ 200 mls/hr 09/26/16 21:00 09/27/16 08:26 Sodium Chloride IV 03/25/17 20:59 100 mls BID LISSET Administration Potassium Chloride 50 mls @ 50 mls/hr 09/26/16 21:19 09/27/16 05:44 Potassium Cl 10 Meq (Premix) IV 09/27/16 00:18 Not Given Q1H LISSET Calcium Gluconate 50 mls @ 100 mls/hr 09/26/16 21:23 09/27/16 00:26 Calcium Gluconate 1 Gm (Premix) IV 09/26/16 21:52 50 mls ONCE ONE Administration Calcium Gluconate 50 mls @ 100 mls/hr 09/27/16 07:08 09/27/16 07:56 Calcium Gluconate 1 Gm (Premix) IV 09/27/16 07:37 50 mls ONCE ONE Administration Potassium Chloride 50 mls @ 50 mls/hr 09/27/16 08:39 09/27/16 14:36 Potassium Cl 10 Meq (Premix) IV 09/27/16 11:38 Not Given Q1H LISSET Dexmedetomidine HCl 400 mcg/ 104 mls @ 0 mls/hr 09/27/16 18:30 09/29/16 22:18 Sodium Chloride IV 03/26/17 18:29 104 mls CONT LISSET Administration Protocol Titrate Calcium Gluconate 50 mls @ 100 mls/hr 09/27/16 21:00 09/27/16 20:39 Calcium Gluconate 1 Gm (Premix) IV 09/27/16 21:29 50 mls ONCE ONE Administration Calcium Gluconate 50 mls @ 100 mls/hr 09/28/16 04:30 09/28/16 04:42 Calcium Gluconate 1 Gm (Premix) IV 09/28/16 04:59 50 mls ONCE ONE Administration Calcium Gluconate 50 mls @ 100 mls/hr 09/28/16 07:46 09/28/16 10:43 Calcium Gluconate 1 Gm (Premix) IV 09/28/16 08:15 50 mls ONCE ONE Administration Calcium Gluconate 1 gm/ 60 mls @ 120 mls/hr 09/29/16 11:30 09/29/16 11:56 Dextrose IV 09/29/16 11:59 60 mls ONCE ONE Administration Calcium Gluconate 50 mls @ 100 mls/hr 09/29/16 12:00 09/29/16 11:45 Calcium Gluconate 1 Gm (Premix) IV 09/29/16 12:29 50 mls ONCE ONE Administration Pantoprazole Sodium 40 mg/ 100 mls @ 200 mls/hr 09/29/16 12:00 10/04/16 18:02 Sodium Chloride IV 03/28/17 11:59 100 mls DAILY LISSET Administration Potassium Chloride 50 mls @ 25 mls/hr 09/29/16 19:30 09/29/16 20:28 Potassium Cl 20 Meq (Premix) IV 09/29/16 21:29 50 mls ONCE ONE Administration Calcium Gluconate 50 mls @ 100 mls/hr 09/30/16 04:42 09/30/16 05:15 Calcium Gluconate 1 Gm (Premix) IV 09/30/16 05:11 50 mls ONCE ONE Administration Dexmedetomidine HCl 400 mcg/ 104 mls @ 0 mls/hr 09/30/16 10:58 09/30/16 21:38 Sodium Chloride IV 03/29/17 10:57 104 mls HS PRN Administration INSOMNIA Protocol Titrate Potassium Chloride 50 mls @ 25 mls/hr 09/30/16 22:12 09/30/16 22:51 Potassium Cl 20 Meq (Premix) IV 10/01/16 00:11 50 mls ONCE ONE Administration Cefepime HCl 1 gm/ Dextrose 50 mls @ 100 mls/hr 10/02/16 18:30 10/02/16 18:47 IV 10/02/16 18:59 50 mls ONCE ONE Administration Cefepime HCl 1 gm/ Dextrose 50 mls @ 100 mls/hr 10/03/16 09:00 10/03/16 11:05 IV 11/02/16 08:59 Not Given Q12HRS LISSET Protocol Cefepime HCl 1 gm/ Dextrose 50 mls @ 100 mls/hr 10/03/16 21:00 IV 11/02/16 20:59 Q12HRS LISSET Protocol Calcium Gluconate 50 mls @ 100 mls/hr 10/04/16 21:59 10/04/16 22:36 Calcium Gluconate 1 Gm (Premix) IV 10/04/16 22:28 50 mls ONCE ONE Administration Insulin Human Regular 0 unit 09/22/16 21:00 09/29/16 09:03 Humulin R SC 03/21/17 20:59 2 units ACHS LISSET Administration Protocol Insulin Human Regular 0 unit 09/29/16 12:00 10/01/16 06:01 Humulin R SC 03/28/17 11:59 4 units Q6 LISSET Administration Protocol Iopamidol Confirm 09/22/16 16:13 Isovue-370 Administered 09/22/16 16:14 Dose 150 ml IV .STK-MED ONE Lidocaine HCl Confirm 09/25/16 09:50 Lidocaine Hcl 1% Administered 09/25/16 09:51 Dose 30 ml .ROUTE .STK-MED ONE Methylprednisolone Sodium Succinate 30 mg 09/24/16 11:53 09/24/16 12:26 Solu-Medrol IVP 09/24/16 11:54 30 mg Q12 STA Administration Methylprednisolone Sodium Succinate 30 mg 09/24/16 21:00 09/25/16 08:49 Solu-Medrol IVP 03/23/17 20:59 30 mg Q12 LISSET Administration Methylprednisolone Sodium Succinate 20 mg 09/25/16 10:09 09/26/16 12:00 Solu-Medrol IVP 03/23/17 20:59 20 mg Q12 LISSET Administration Pantoprazole Sodium 40 mg 09/27/16 09:00 Protonix PO 03/26/17 08:59 DAILY LISSET Pantoprazole Sodium 40 mg 09/28/16 09:00 09/29/16 09:04 Protonix PO 03/27/17 08:59 40 mg DAILY LISSET Administration Potassium Chloride 1 dose 09/22/16 19:26 Protocol Potassium MISC 03/21/17 19:25 AD PRN Pt on Electrolyte Protocol Protocol Potassium Chloride 30 meq 09/22/16 20:52 09/22/16 21:03 Klor-Con PO 09/22/16 20:53 30 meq ONCE ONE Administration Protocol Potassium Chloride 10 meq 09/27/16 21:13 09/27/16 21:58 Klor-Con PO 09/27/16 21:14 10 meq ONCE ONE Administration Protocol Physical Exam - Physical Exam General Appearance: alert Neck: other (epigastric tenderness) Respiratory: lungs clear, normal breath sounds Cardiac/Chest: regular rate, rhythm Skin: normal color, warm/dry Neuro/Psych: alert, normal mood/affect, oriented x 3 ICD10 Worksheet Patient Problems: Problems Problem Status Onset Pancreatitis Acute
[2016-10-05 16:18] LABS: ALBUMIN 1.9 g/dL (3.5-5.0); BILIRUBIN,TOTAL 1.1 mg/dL (0.1-1.4); BILIRUBIN-CONJUGATED 1.1 mg/dL (0.0-0.5); TOTAL PROTEIN 5.2 g/dL (6.3-8.2)
[2016-10-05] MEDS: CEFEPIME HCL 1 GM in D5W 50 ML IV SCH (16:37)
[2016-10-05] MEDS: PANTOPRAZOLE SODIUM 40 MG in NS 100 ML IV SCH (17:29)
[2016-10-05] MEDS: TPN 1 EA BAG IV SCH (21:20)
[2016-10-06] MEDS: INSULIN REGULAR, HUMAN 100 UNIT/1 ML VIAL HIGH SC SCH ×4 (00:15→17:30)
[2016-10-06] MEDS: HYDROmorphONE/DILAUDID 1 MG/ML SYR IVP PRN ×5 (02:43→20:52)
[2016-10-06] MEDS: LORazepam 2 MG/ML INJ IVP PRN ×2 (03:18→09:57)
[2016-10-06] MEDS: HEPARIN 5,000 UNIT/0.5 ML SYR SC SCH ×3 (05:16→22:03)
[2016-10-06] MEDS: IPRATROPIUM/ALBUTEROL 3 ML DEYVIAL IH SCH ×4 (05:55→21:15)
[2016-10-06 06:12] LABS: TOTAL PROTEIN 5.3 g/dL (6.3-8.2)
[2016-10-06 06:55] LABS: GLUCOSE 154 mg/dL (70-100)
[2016-10-06 10:35] LABS: ANION GAP 10 mEq/L (8-16); CALCIUM 8.2 mg/dL (8.5-10.4); CARBON DIOXIDE 24 mEq/l (22-31); CHLORIDE 97 mEq/L (97-110); CREATININE 3.2 mg/dL (0.6-1.0); GLOMERULAR FILTRATION RATE 14; GLUCOSE 127 mg/dL (70-100); POTASSIUM 3.6 mEq/L (3.5-5.2); SODIUM 131 mEq/L (134-144)
[2016-10-06] MEDS: OXYMETAZOLINE 30 ML NASAL SPRAY EACHNARE SCH ×2 (12:22→22:04)
--- NOTE | 2016-10-06 12:42 | HOSPPROG ---
Hospitalist Progress Note Assessment/Plan: 66-year-old female presents with acute pancreatitis following liver biopsy # acute encephalopathy- continues to improve less somnolent- suspect largely due to hypoactive delirium in setting of long hospital stay and meds - continue to wean narcotics as able # Acute severe pancreatitis.-s/p liver biopsy with GI following and thought to be 2/2 hemobilia Lipase 16 this am from > 10,000 on admit - cont clears - cpnt TPN # ANISH 2/2 ATN in setting of hypoperfusion from acute pancreatitis-urine output increasing athough still oliguric - cont HD - cont lasix # SIRS/sepsis: improving though wbc remains elevated, no change really since starting abx. cultures with ngtd. Afebrile. # pulmonary infiltrates- CXR (personally rviewed and interpreted) as above, atelectasis versus concurrent pna. 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 Cough + diffuse expiratory wheezes, no tob hx or hx of COPD cont on scheduled duonebs, improving # DM- BS 120-202 - cont hold Glyburide - cont q6h SSI # Hypocalcemia. 2/2 pancreatitis, resolved # Diet. clears, TPN # Dispo: IP status, discharge date unclear-- ongoing HD needs to be clarified I have discussed the case with RN - will tx pain as needed and follow closely after HD Subjective: persistent abd pain - she describes as stable Objective: Vital Signs Temp Pulse Resp BP Pulse Ox 37.0 C 94 22 H 146/68 H 98 10/06/16 11:25 10/06/16 11:25 10/06/16 11:25 10/06/16 11:25 10/06/16 11:25 Laboratory Results 10/04/16 05:40 10/06/16 09:00 10/05/16 10/06/16 10/07/16 05:59 05:59 05:59 Intake Total 1135 1193 Output Total 400 2050 200 Balance 735 857 -200 PT 15.3 SEC (12.0-15.0) H 10/02/16 04:10 INR 1.21 (0.83-1.16) H 10/02/16 04:10 - Physical Exam Constitutional: obese Eyes: anicteric sclera Ears, Nose, Mouth, Throat: moist mucous membranes Cardiovascular: regular rate and rhythym Respiratory: no respiratory distress, no rales or rhonchi Gastrointestinal: normoactive bowel sounds, soft, non-tender abdomen Genitourinary: no bladder fullness Skin: warm, normal color Musculoskeletal: No asymmetric calves Neurologic: AAOx3 Psychiatric: depressed, flat affect Lymph, Heme, Immunologic: no cervical LAD ICD10 Worksheet Patient Problems: Problems Problem Status Onset Pancreatitis Acute
[2016-10-06 12:56] LABS: IONIZED CALCIUM 1.18 MMOL/L (1.12-1.30)
--- NOTE | 2016-10-06 14:00 | SOAPPROG ---
SOAP Progress Note Assessment/Plan: Assessment: ANISH: pt initally with oliguric ANISH in setting of pancreatitis, likely has ATN. Now UOP picking up - HD today and then will monitor labs/UOP- ?starting to recover as UOP picking up, rate of Cr rise slowing - Avoid MOM, morphine, demerol, NSAIDs, contrast, aminoglycosides, fleets, and other nephrotoxins. -If she continues to need HD next week, would ask IR to exchange HD cath next week by IR as this one has been in for 2 weeks Hypervolemia: improving with HD. - improved, UOP picking up Hyponatremia: Na slowly improving, up to 131 today - Would recommend concentrating TPN. - Will continue to monitor. [facility] [phone] 10/06/16 15:06 Subjective: HD earlier today- 3kg UF. UOP picking up 1750 cc. Objective: Vital Signs Temp Pulse Resp BP Pulse Ox 37.0 C 94 22 H 146/68 H 98 10/06/16 11:25 10/06/16 11:25 10/06/16 11:25 10/06/16 11:25 10/06/16 11:25 Laboratory Results 10/04/16 05:40 10/06/16 09:00 10/05/16 10/06/16 10/07/16 05:59 05:59 05:59 Intake Total 1135 1193 Output Total 400 2050 200 Balance 735 -857 -200 PT 15.3 SEC (12.0-15.0) H 10/02/16 04:10 INR 1.21 (0.83-1.16) H 10/02/16 04:10 Physical Exam - Physical Exam General Appearance: no apparent distress EENT: other (mmm) Neck: supple, other (RIJ HD cath c/d/i) Respiratory: lungs clear Cardiac/Chest: regular rate, rhythm, other (no rub) Abdomen: normal bowel sounds, non-tender, soft Skin: warm/dry Extremities: other (no edema) Neuro/Psych: alert, oriented x 3 ICD10 Worksheet Patient Problems: Problems Problem Status Onset Pancreatitis Acute
--- NOTE | 2016-10-06 15:26 | SOAPPROG ---
SOAP Progress Note Assessment/Plan: Assessment: Pancreatitis, s/p liver biopsy. Labs improved. Has bowel sounds. Still with c/o abdominal pain. Plan: 1. Try advancing diet to low fat diet 2. If still with abdominal pain may need to repeat imaging of the abdomen 10/06/16 15:22 Subjective: CC: Pancreatitis Still with abdominal pain, pain comes and goes. Has had BM, reports to be hungry Objective: Vital Signs Temp Pulse Resp BP Pulse Ox 37.0 C 94 22 H 146/68 H 98 10/06/16 11:25 10/06/16 11:25 10/06/16 11:25 10/06/16 11:25 10/06/16 11:25 Laboratory Results 10/04/16 05:40 10/06/16 09:00 10/05/16 10/06/16 10/07/16 05:59 05:59 05:59 Intake Total 1135 1193 Output Total 400 2050 200 Balance 735 -857 -200 PT 15.3 SEC (12.0-15.0) H 10/02/16 04:10 INR 1.21 (0.83-1.16) H 10/02/16 04:10 Generic Name Dose Route Start Last Admin Trade Name Freq PRN Reason Stop Dose Admin Acetaminophen 650 mg 09/22/16 19:24 Tylenol Rectal WV 03/21/17 19:23 Q4 PRN Pain, Mild/Fever,Can't Take PO Albuterol/Ipratropium 3 ml 09/25/16 06:00 10/06/16 11:47 Duoneb IH 03/24/17 05:59 Not Given Q6HRS LISSET Alteplase, Recombinant 2 mg 09/24/16 18:13 Cathflo Activase IVP 03/23/17 18:12 PRN PRN Per PICC line policy Calcium Gluconate 1 dose 10/05/16 10:40 Protocol Calcium IV 04/03/17 10:39 AD PRN Pt on Electrolyte Protocol Protocol Dextrose 25 gm 09/22/16 19:26 Dextrose 50% Syringe IVP 03/21/17 19:25 PRN PRN Hypoglycemia Heparin Sodium (Porcine) 5,000 unit 09/24/16 09:00 10/06/16 13:09 Heparin Sc Injection SC 03/23/17 08:59 5,000 unit 0600,1400,2200 LISSET Administration Hydromorphone HCl 0.2 mg 10/03/16 16:46 10/06/16 13:06 Dilaudid IVP 10/13/16 16:45 0.2 mg Q2HRS PRN Administration Pain, Severe Unable to Take PO Dextrose 1,000 mls @ 0 mls/hr 09/29/16 10:56 D10w IV 03/28/17 10:55 PRN PRN TPN interruption As Directed Cefepime HCl 1 gm/ Dextrose 50 mls @ 100 mls/hr 10/03/16 17:00 10/05/16 16:37 IV 11/02/16 16:59 50 mls DAILY@1700 LISSET Administration Sodium Chloride 1,000 mls @ 0 mls/hr 10/03/16 13:00 Ns IV 04/01/17 12:59 CONT LISSET As Directed Pantoprazole Sodium 40 mg/ 100 mls @ 200 mls/hr 10/05/16 18:00 10/05/16 17:29 Sodium Chloride IV 04/03/17 17:59 100 mls DAILY18 LISSET Administration Insulin Human Regular 4 - 20 unit 10/01/16 08:30 10/06/16 12:05 Humulin R SC 03/30/17 08:29 4 units Q6 LISSET Administration Protocol Lorazepam 0.5 mg 09/25/16 22:44 10/06/16 09:57 Ativan Injection IVP 03/24/17 22:43 0.5 mg Q6H PRN Administration Anxiety, Unable to Take PO Naloxone HCl 0 mg 09/22/16 19:59 Narcan IVP 03/21/17 19:58 PRN PRN Respiratory depression Protocol Ondansetron HCl 4 mg 09/22/16 19:24 Zofran IVP 03/21/17 19:23 Q4 PRN Nausea/Vomiting, Can't Take PO Oxymetazoline HCl 2 sprays 09/30/16 10:30 10/06/16 12:22 Afrin Nasal [place] EACH[place]ARE 03/29/17 10:29 2 sprays BID LISSET Administration Promethazine HCl 6.25 mg 09/22/16 19:24 Phenergan IVP 03/21/17 19:23 Q6 PRN Nausea/Vomiting, Can't Take PO Throat Lozenges 1 ea 09/26/16 18:09 Cepacol Lozenge PO 03/25/17 18:08 PRN PRN Sore Throat Total Parenteral Nutrition 1 ea 09/29/16 11:00 Pharmacy To DoseTpn MISC 03/28/17 10:59 AD LISSET Total Parenteral Nutrition 1 ea 09/29/16 21:00 10/05/16 21:20 Hyperalimentation IV 03/28/17 20:59 1 ea DAILY21 LISSET Administration Ursodiol 300 mg 09/22/16 21:00 09/24/16 21:07 Actigall PO 03/21/17 20:59 300 mg HS LISSET Administration Ursodiol 600 mg 09/23/16 09:00 09/25/16 10:57 Actigall PO 03/22/17 08:59 Not Given DAILY LISSET Discontinued Medications Generic Name Dose Route Start Last Admin Trade Name Freq PRN Reason Stop Dose Admin Albuterol Confirm 09/25/16 01:21 Proventil Neb Administered 09/25/16 01:22 Dose 3 ml .ROUTE .STK-MED ONE Azathioprine 50 mg 09/23/16 09:00 09/24/16 09:32 Imuran PO 03/22/17 08:59 Not Given DAILY LISSET Calcium Gluconate 1 dose 09/24/16 07:05 Protocol Calcium IV 03/23/17 07:04 AD PRN Pt on Electrolyte Protocol Protocol Diphenhydramine HCl 25 mg 09/25/16 14:51 09/25/16 21:32 Benadryl PO 03/24/17 14:50 25 mg Q6HRS PRN Administration Itching Enoxaparin Sodium 40 mg 09/23/16 09:00 09/23/16 09:09 Lovenox SC 03/22/17 08:59 Not Given DAILY LISSET Furosemide 40 mg 10/05/16 10:52 10/05/16 11:20 Lasix Injection IVP 10/05/16 10:53 40 mg ONCE ONE Administration Gadobutrol Confirm 09/23/16 09:45 Gadavist 1 Mmol/Ml Administered 09/23/16 09:46 Dose 10 ml IVP .STK-MED ONE Heparin Sodium (Porcine) Confirm 09/25/16 09:50 Heparin Sodium Administered 09/25/16 09:51 Dose 50,000 unit .ROUTE .STK-MED ONE Heparin Sodium (Porcine) 50,000 unit 09/26/16 18:57 Heparin Sodium .ROUTE 09/26/16 18:58 .STK-MED ONE Heparin Sodium (Porcine) 50,000 unit 09/30/16 21:12 Heparin Sodium .ROUTE 09/30/16 21:13 .STK-MED ONE Heparin Sodium (Porcine) 50,000 unit 09/30/16 21:16 Heparin Sodium .ROUTE 09/30/16 21:17 .STK-MED ONE Heparin Sodium (Porcine) 50,000 unit 10/02/16 01:45 Heparin Sodium .ROUTE 10/02/16 01:46 .STK-MED ONE Heparin Sodium (Porcine) 50,000 unit 10/03/16 21:00 Heparin Sodium .ROUTE 10/03/16 21:01 .STK-MED ONE Hydromorphone HCl 0.2 - 0.4 mg 09/22/16 19:09 09/22/16 19:17 Dilaudid IVP 10/02/16 19:08 0.4 mg Q2HRS PRN Administration Pain, Severe Unable to Take PO Hydromorphone HCl 0.5 - 1 mg 09/22/16 19:24 Dilaudid IVP 10/02/16 19:23 Q2HRS PRN Pain, Severe Unable to Take PO Hydromorphone HCl 0 mg 09/22/16 19:59 09/30/16 19:47 Dilaudid Ladies' [employer] Trimmer IV 10/02/16 19:58 6 mg PRN PRN Administration Pain, Severe Unable to Take PO Protocol Hydromorphone HCl 0 mg 10/01/16 10:58 10/01/16 17:22 Dilaudid Ladies' Hat Trimmer IV 10/11/16 10:57 6 mg PRN PRN Administration Pain, Severe Unable to Take PO Protocol Sodium Chloride 1,000 mls @ 100 mls/hr 09/22/16 19:15 Ns IV 03/21/17 19:14 CONT LISSET Sodium Chloride 1,000 mls @ 0 mls/hr 09/22/16 19:02 09/22/16 19:46 Ns IV 09/22/16 19:03 1,000 mls ONCE ONE Administration Wide Open Famotidine/Sodium Chloride 50 mls @ 200 mls/hr 09/22/16 21:00 Pepcid 20 Mg (Premix) IV 03/21/17 20:59 Q12HRS LISSET Sodium Chloride 1,000 mls @ 100 mls/hr 09/22/16 19:30 09/26/16 20:38 Ns IV 03/21/17 19:29 1,000 mls CONT LISSET Administration Pantoprazole Sodium 40 mg/ 100 mls @ 200 mls/hr 09/23/16 09:00 09/26/16 14:39 Sodium Chloride IV 03/22/17 08:59 100 mls DAILY LISSET Administration Piperacillin/Tazobactam/Dextrose 50 mls @ 100 mls/hr 09/23/16 18:00 09/24/16 14:27 Zosyn 3.375 Gm (Premix) IV 10/23/16 17:59 50 mls Q6HRS LISSET Administration Protocol Calcium Gluconate 2 gm/ Sodium 70 mls @ 140 mls/hr 09/24/16 08:35 09/24/16 10 :52 Chloride IV 09/24/16 09:04 70 mls ONCE ONE Administration Sodium Chloride 1,000 mls @ 0 mls/hr 09/24/16 10:09 09/24/16 10:52 Ns IV 09/24/16 10:10 1,000 mls ONCE ONE Administration Wide Open Piperacillin/Tazobactam/Dextrose 50 mls @ 100 mls/hr 09/24/16 18:00 09/26/16 14:39 Zosyn 2.25 Gm (Premix) IV 10/24/16 17:59 50 mls Q6 LISSET Administration Calcium Gluconate 2 gm/ Sodium 70 mls @ 140 mls/hr 09/24/16 18:23 09/24/16 19 :29 Chloride IV 09/24/16 18:52 70 mls ONCE ONE Administration Calcium Gluconate 2 gm/ Sodium 70 mls @ 140 mls/hr 09/24/16 22:16 09/24/16 22 :41 Chloride IV 09/24/16 22:45 70 mls ONCE ONE Administration Calcium Gluconate 2 gm/ Sodium 70 mls @ 140 mls/hr 09/25/16 02:22 09/25/16 02 :44 Chloride IV 09/25/16 02:51 70 mls ONCE ONE Administration Calcium Gluconate 2 gm/ Sodium 70 mls @ 140 mls/hr 09/25/16 06:45 09/25/16 07 :31 Chloride IV 09/25/16 07:14 70 mls ONCE ONE Administration Calcium Gluconate 2 gm/ Sodium 70 mls @ 140 mls/hr 09/25/16 10:37 09/25/16 11 :34 Chloride IV 09/25/16 11:06 70 mls ONCE ONE Administration Calcium Gluconate 2 gm/ Sodium 70 mls @ 140 mls/hr 09/25/16 14:56 09/25/16 15 :20 Chloride IV 09/25/16 15:25 70 mls ONCE ONE Administration Calcium Gluconate 2 gm/ Sodium 70 mls @ 140 mls/hr 09/25/16 18:12 09/25/16 19 :29 Chloride IV 09/25/16 18:41 70 mls ONCE ONE Administration Sodium Chloride 500 mls @ 0 mls/hr 09/25/16 18:30 09/25/16 17:45 Ns IV 09/25/16 18:31 500 mls ONCE ONE Administration Wide Open Calcium Gluconate 2 gm/ Sodium 70 mls @ 140 mls/hr 09/25/16 22:27 09/25/16 22 :39 Chloride IV 09/25/16 22:56 70 mls ONCE ONE Administration Calcium Gluconate 2 gm/ Sodium 70 mls @ 140 mls/hr 09/26/16 02:26 09/26/16 02 :36 Chloride IV 09/26/16 02:55 70 mls ONCE ONE Administration Calcium Gluconate 2 gm/ Sodium 70 mls @ 140 mls/hr 09/26/16 07:10 09/26/16 13 :43 Chloride IV 09/26/16 07:39 70 mls ONCE ONE Administration Pantoprazole Sodium 40 mg/ 100 mls @ 200 mls/hr 09/26/16 21:00 09/27/16 08:26 Sodium Chloride IV 03/25/17 20:59 100 mls BID LISSET Administration Potassium Chloride 50 mls @ 50 mls/hr 09/26/16 21:19 09/27/16 05:44 Potassium Cl 10 Meq (Premix) IV 09/27/16 00:18 Not Given Q1H LISSET Calcium Gluconate 50 mls @ 100 mls/hr 09/26/16 21:23 09/27/16 00:26 Calcium Gluconate 1 Gm (Premix) IV 09/26/16 21:52 50 mls ONCE ONE Administration Calcium Gluconate 50 mls @ 100 mls/hr 09/27/16 07:08 09/27/16 07:56 Calcium Gluconate 1 Gm (Premix) IV 09/27/16 07:37 50 mls ONCE ONE Administration Potassium Chloride 50 mls @ 50 mls/hr 09/27/16 08:39 09/27/16 14:36 Potassium Cl 10 Meq (Premix) IV 09/27/16 11:38 Not Given Q1H LISSET Dexmedetomidine HCl 400 mcg/ 104 mls @ 0 mls/hr 09/27/16 18:30 09/29/16 22:18 Sodium Chloride IV 03/26/17 18:29 104 mls CONT LISSET Administration Protocol Titrate Calcium Gluconate 50 mls @ 100 mls/hr 09/27/16 21:00 09/27/16 20:39 Calcium Gluconate 1 Gm (Premix) IV 09/27/16 21:29 50 mls ONCE ONE Administration Calcium Gluconate 50 mls @ 100 mls/hr 09/28/16 04:30 09/28/16 04:42 Calcium Gluconate 1 Gm (Premix) IV 09/28/16 04:59 50 mls ONCE ONE Administration Calcium Gluconate 50 mls @ 100 mls/hr 09/28/16 07:46 09/28/16 10:43 Calcium Gluconate 1 Gm (Premix) IV 09/28/16 08:15 50 mls ONCE ONE Administration Calcium Gluconate 1 gm/ 60 mls @ 120 mls/hr 09/29/16 11:30 09/29/16 11:56 Dextrose IV 09/29/16 11:59 60 mls ONCE ONE Administration Calcium Gluconate 50 mls @ 100 mls/hr 09/29/16 12:00 09/29/16 11:45 Calcium Gluconate 1 Gm (Premix) IV 09/29/16 12:29 50 mls ONCE ONE Administration Pantoprazole Sodium 40 mg/ 100 mls @ 200 mls/hr 09/29/16 12:00 10/04/16 18:02 Sodium Chloride IV 03/28/17 11:59 100 mls DAILY LISSET Administration Potassium Chloride 50 mls @ 25 mls/hr 09/29/16 19:30 09/29/16 20:28 Potassium Cl 20 Meq (Premix) IV 09/29/16 21:29 50 mls ONCE ONE Administration Calcium Gluconate 50 mls @ 100 mls/hr 09/30/16 04:42 09/30/16 05:15 Calcium Gluconate 1 Gm (Premix) IV 09/30/16 05:11 50 mls ONCE ONE Administration Dexmedetomidine HCl 400 mcg/ 104 mls @ 0 mls/hr 09/30/16 10:58 09/30/16 21:38 Sodium Chloride IV 03/29/17 10:57 104 mls HS PRN Administration INSOMNIA Protocol Titrate Potassium Chloride 50 mls @ 25 mls/hr 09/30/16 22:12 09/30/16 22:51 Potassium Cl 20 Meq (Premix) IV 10/01/16 00:11 50 mls ONCE ONE Administration Cefepime HCl 1 gm/ Dextrose 50 mls @ 100 mls/hr 10/02/16 18:30 10/02/16 18:47 IV 10/02/16 18:59 50 mls ONCE ONE Administration Cefepime HCl 1 gm/ Dextrose 50 mls @ 100 mls/hr 10/03/16 09:00 10/03/16 11:05 IV 11/02/16 08:59 Not Given Q12HRS LISSET Protocol Cefepime HCl 1 gm/ Dextrose 50 mls @ 100 mls/hr 10/03/16 21:00 IV 11/02/16 20:59 Q12HRS LISSET Protocol Calcium Gluconate 50 mls @ 100 mls/hr 10/04/16 21:59 10/04/16 22:36 Calcium Gluconate 1 Gm (Premix) IV 10/04/16 22:28 50 mls ONCE ONE Administration Insulin Human Regular 0 unit 09/22/16 21:00 09/29/16 09:03 Humulin R SC 03/21/17 20:59 2 units A[facility]S [facility] Administration Protocol Insulin Human Regular 0 unit 09/29/16 12:00 10/01/16 06:01 Humulin R SC 03/28/17 11:59 4 units Q6 [facility] Administration Protocol Iopamidol Confirm 09/22/16 16:13 Isovue-370 Administered 09/22/16 16:14 Dose 150 ml IV .STK-MED ONE Lidocaine HCl Confirm 09/25/16 09:50 Lidocaine Hcl 1% Administered 09/25/16 09:51 Dose 30 ml .ROUTE .STK-MED ONE Methylprednisolone Sodium Succinate 30 mg 09/24/16 11:53 09/24/16 12:26 Solu-Medrol IVP 09/24/16 11:54 30 mg Q12 STA Administration Methylprednisolone Sodium Succinate 30 mg 09/24/16 21:00 09/25/16 08:49 Solu-Medrol IVP 03/23/17 20:59 30 mg Q12 LISSET Administration Methylprednisolone Sodium Succinate 20 mg 09/25/16 10:09 09/26/16 12:00 Solu-Medrol IVP 03/23/17 20:59 20 mg Q12 LISSET Administration Pantoprazole Sodium 40 mg 09/27/16 09:00 Protonix PO 03/26/17 08:59 DAILY LISSET Pantoprazole Sodium 40 mg 09/28/16 09:00 09/29/16 09:04 Protonix PO 03/27/17 08:59 40 mg DAILY LISSET Administration Potassium Chloride 1 dose 09/22/16 19:26 Protocol Potassium MISC 03/21/17 19:25 AD PRN Pt on Electrolyte Protocol Protocol Potassium Chloride 30 meq 09/22/16 20:52 09/22/16 21:03 Klor-Con PO 09/22/16 20:53 30 meq ONCE ONE Administration Protocol Potassium Chloride 10 meq 09/27/16 21:13 09/27/16 21:58 Klor-Con PO 09/27/16 21:14 10 meq ONCE ONE Administration Protocol Physical Exam - Physical Exam General Appearance: alert Respiratory: lungs clear, normal breath sounds Cardiac/Chest: regular rate, rhythm Abdomen: normal bowel sounds, other (soft, with slight tenderness) ICD10 Worksheet Patient Problems: Problems Problem Status Onset Pancreatitis Acute
[2016-10-06] MEDS: CEFEPIME HCL 1 GM in D5W 50 ML IV SCH (17:08)
[2016-10-06] MEDS: PANTOPRAZOLE SODIUM 40 MG in NS 100 ML IV SCH (17:52)
[2016-10-06] MEDS ORDERED: HEPARIN 50,000 UNIT/10 ML VIAL ONE (20:00)
[2016-10-06] MEDS: TPN 1 EA BAG IV SCH (22:03)
[2016-10-07] MEDS: INSULIN REGULAR, HUMAN 100 UNIT/1 ML VIAL HIGH SC SCH ×4 (00:31→17:41)
[2016-10-07] MEDS: HYDROmorphONE/DILAUDID 1 MG/ML SYR IVP PRN ×4 (01:44→23:05)
[2016-10-07] MEDS: LORazepam 2 MG/ML INJ IVP PRN (04:32)
[2016-10-07] MEDS: IPRATROPIUM/ALBUTEROL 3 ML DEYVIAL IH SCH ×4 (05:37→22:43)
[2016-10-07] MEDS: HEPARIN 5,000 UNIT/0.5 ML SYR SC SCH ×3 (05:48→22:05)
[2016-10-07 06:46] LABS: IONIZED CALCIUM 1.24 MMOL/L (1.12-1.30)
[2016-10-07 06:56] LABS: ALANINE AMINOTRANSFERASE 40 IU/L (9-52); ALKALINE PHOSPHATASE 107 IU/L (38-126); ANION GAP 9 mEq/L (8-16); ASPARTATE AMINOTRANSFERASE 36 IU/L (14-46); CALCIUM 8.3 mg/dL (8.5-10.4); CARBON DIOXIDE 22 mEq/l (22-31); CHLORIDE 96 mEq/L (97-110); CREATININE 3.3 mg/dL (0.6-1.0); GLOMERULAR FILTRATION RATE 14; GLUCOSE 178 mg/dL (70-100); POTASSIUM 3.6 mEq/L (3.5-5.2); SODIUM 127 mEq/L (134-144); TOTAL PROTEIN 5.4 g/dL (6.3-8.2)
[2016-10-07] MEDS: OXYMETAZOLINE 30 ML NASAL SPRAY EACHNARE SCH ×2 (08:59→22:14)
--- NOTE | 2016-10-07 12:57 | SOAPPROG ---
SOAP Progress Note Assessment/Plan: Assessment: ANISH: pt initally with oliguric ANISH in setting of pancreatitis, likely has ATN. Now UOP picking up - HD Saturday- her UOP has picked up (not on lasix) so will see lab trend tomorrow to decide on if/when further HD -If she continues to need HD next week, would ask IR to exchange HD cath next week by IR as this one has been in for 2 weeks -will add phos, mg to am labs given on TPN- should check daily for now Hypervolemia: improving with HD. - improved, UOP picking up- still some edema on exam -infiltrates on CXR and has mild O2 needs- on antibiotics as well in case possible pna Hyponatremia: Na 127 today - Would recommend concentrating TPN and oral fluid restriction when taking po. - Will continue to monitor. Severe pancreatitis, lipase > 18,000 on admit -s/p liver biopsy, felt consistent with hemobilia. TG only mildly elevated ~200. -on clears, not tolerating much po and on TPN-- considering further imaging -no fevers, lipase improved Martha Watts MD [facility] [phone] 10/07/16 14:08 Subjective: Sitting in chair, tried to eat some pudding but having abd pain. Still on TPN. Good UOP. I reviewed lab trend with her. Denies sob. Objective: Vital Signs Temp Pulse Resp BP Pulse Ox 37.3 C 91 19 133/64 H 93 10/07/16 12:00 10/07/16 12:00 10/07/16 12:00 10/07/16 12:00 10/07/16 12:00 Laboratory Results 10/04/16 05:40 10/07/16 06:20 10/06/16 10/07/16 10/08/16 05:59 05:59 05:59 Intake Total 1193 1913 Output Total 2050 1300 600 Balance -857 613 -600 PT 15.3 SEC (12.0-15.0) H 10/02/16 04:10 INR 1.21 (0.83-1.16) H 10/02/16 04:10 Physical Exam - Physical Exam General Appearance: alert, no apparent distress EENT: other (mmm) Neck: supple, other (RIJ temp HD cath c/d/i) Respiratory: lungs clear Cardiac/Chest: regular rate, rhythm Abdomen: soft, other (mild diffuse tenderness, no rebound) Skin: warm/dry Extremities: other (+edema ankles bilat) Neuro/Psych: alert, oriented x 3 ICD10 Worksheet Patient Problems: Problems Problem Status Onset Pancreatitis Acute
--- NOTE | 2016-10-07 14:13 | HOSPPROG ---
Hospitalist Progress Note Assessment/Plan: 66-year-old female presents with acute pancreatitis following liver biopsy # Acute severe pancreatitis.-s/p liver biopsy with GI following and thought to be 2/2 hemobilia Lipase 16 from > 10,000 on admit - advancing to light diet - cont TPN while PO limited # ANISH 2/2 ATN in setting of hypoperfusion from acute pancreatitis-urine output increasing - pre-HD labs improving - cont HD per renal recs - may not need more - cont lasix at current dose # acute encephalopathy-resolved- suspect largely due to hypoactive delirium in setting of long hospital stay and meds - continue to wean narcotics as able # SIRS/sepsis: improving though wbc remains elevated, no change really since starting abx. cultures with ngtd. Afebrile. 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 Cough + diffuse expiratory wheezes, no tob hx or hx of COPD cont on scheduled duonebs, improving # DM- BS 166-230's - cont hold Glyburide - cont q6h SSI # Hypocalcemia. 2/2 pancreatitis, resolved # Diet. clears, TPN # Dispo-IP status, discharge date unclear-- ongoing HD needs to be clarified I have discussed the case with PT - we are in agreement that mobilization is the most important part of her ongoing progress Subjective: feels weak Objective: Vital Signs Temp Pulse Resp BP Pulse Ox 37.3 C 91 19 133/64 H 93 10/07/16 12:00 10/07/16 12:00 10/07/16 12:00 10/07/16 12:00 10/07/16 12:00 Laboratory Results 10/04/16 05:40 10/07/16 06:20 10/06/16 10/07/16 10/08/16 05:59 05:59 05:59 Intake Total 1193 1913 Output Total 2049 1300 600 Balance -857 613 -600 PT 15.3 SEC (12.0-15.0) H 10/02/16 04:10 INR 1.21 (0.83-1.16) H 10/02/16 04:10 - Physical Exam Constitutional: obese Eyes: anicteric sclera Ears, Nose, Mouth, Throat: moist mucous membranes Cardiovascular: regular rate and rhythym Respiratory: no respiratory distress, reduced air movement Gastrointestinal: normoactive bowel sounds, tenderness, No guarding, No rebound Genitourinary: no bladder fullness Skin: warm, normal color Musculoskeletal: No asymmetric calves Neurologic: AAOx3 Psychiatric: depressed, flat affect Lymph, Heme, Immunologic: no cervical LAD ICD10 Worksheet Patient Problems: Problems Problem Status Onset Pancreatitis Acute
[2016-10-07] MEDS: CEFEPIME HCL 1 GM in D5W 50 ML IV SCH (17:23)
--- NOTE | 2016-10-07 17:35 | SOAPPROG ---
SOAP Progress Note Assessment/Plan: Assessment: 1. 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 Hepatitis C, grade 3 stage 2. Prior remote history of blood transfusion. Has not had prior treatment of hepatitis C 3. Pancreatitis s/p liver biopsy. Labs improved 4. Abdominal discomfort and abdominal distention. Suspect underlying ascites. Seen on previous imaging. On broad spectrum Antibiotics. Patient with fluid retention in setting of AFR. Has had hot die picker in urine output 5. Tolerating a low fat diet but PO intake is very poor. Continues on TPN 6. Renal failure, HD as per nephrology Plan: 1. Continue supportive care 2. HD and diuresis per nephrology 3. Continue low fat diet 10/07/16 17:42 Subjective: CC: Pancreatitis C/o abdominal distention and intermittent abdominal discomfort Objective: Vital Signs Temp Pulse Resp BP Pulse Ox 36.7 C 86 26 H 152/64 H 94 10/07/16 16:00 10/07/16 17:11 10/07/16 17:11 10/07/16 16:00 10/07/16 17:11 Laboratory Results 10/04/16 05:40 10/07/16 06:20 10/06/16 10/07/16 10/08/16 05:59 05:59 05:59 Intake Total 1193 1913 Output Total 0 1300 600 Balance -857 613 -600 PT 15.3 SEC (12.0-15.0) H 10/02/16 04:10 INR 1.21 (0.83-1.16) H 10/02/16 04:10 Generic Name Dose Route Start Last Admin Trade Name Freq PRN Reason Stop Dose Admin Acetaminophen 650 mg 09/22/16 19:24 Tylenol Rectal IA 03/21/17 19:23 Q4 PRN Pain, Mild/Fever,Can't Take PO Albuterol/Ipratropium 3 ml 09/25/16 06:00 10/07/16 17:10 Duoneb IH 03/24/17 05:59 3 ml Q6HRS LISSET Administration Alteplase, Recombinant 2 mg 09/24/16 18:13 Cathflo Activase IVP 03/23/17 18:12 PRN PRN Per PICC line policy Calcium Gluconate 1 dose 10/05/16 10:40 Protocol Calcium IV 04/03/17 10:39 AD PRN Pt on Electrolyte Protocol Protocol Dextrose 25 gm 09/22/16 19:26 Dextrose 50% Syringe IVP 03/21/17 19:25 PRN PRN Hypoglycemia Heparin Sodium (Porcine) 5,000 unit 09/24/16 09:00 10/07/16 14:48 Heparin Sc Injection SC 03/23/17 08:59 5,000 unit 0600,1400,2200 LISSET Administration Hydromorphone HCl 0.2 mg 10/03/16 16:46 10/07/16 10:42 Dilaudid IVP 10/13/16 16:45 0.2 mg Q2HRS PRN Administration Pain, Severe Unable to Take PO Dextrose 1,000 mls @ 0 mls/hr 09/29/16 10:56 D10w IV 03/28/17 10:55 PRN PRN TPN interruption As Directed Cefepime HCl 1 gm/ Dextrose 50 mls @ 100 mls/hr 10/03/16 17:00 10/07/16 17:23 IV 10/10/16 06:00 50 mls DAILY@1700 LISSET Administration Sodium Chloride 1,000 mls @ 0 mls/hr 10/03/16 13:00 Ns IV 04/01/17 12:59 CONT LISSET As Directed Pantoprazole Sodium 40 mg/ 100 mls @ 200 mls/hr 10/05/16 18:00 10/06/16 17:52 Sodium Chloride IV 04/03/17 17:59 100 mls DAILY18 LISSET Administration Insulin Human Regular 4 - 20 unit 10/01/16 08:30 10/07/16 12:50 Humulin R SC 03/30/17 08:29 8 units Q6 LISSET Administration Protocol Lorazepam 0.5 mg 09/25/16 22:44 10/07/16 04:32 Ativan Injection IVP 03/24/17 22:43 0.5 mg Q6H PRN Administration Anxiety, Unable to Take PO Naloxone HCl 0 mg 09/22/16 19:59 Narcan IVP 03/21/17 19:58 PRN PRN Respiratory depression Protocol Ondansetron HCl 4 mg 09/22/16 19:24 Zofran IVP 03/21/17 19:23 Q4 PRN Nausea/Vomiting, Can't Take PO Oxymetazoline HCl 2 sprays 09/30/16 10:30 10/07/16 08:59 Afrin Nasal [place] EACH[place]ARE 03/29/17 10:29 2 sprays BID LISSET Administration Promethazine HCl 6.25 mg 09/22/16 19:24 Phenergan IVP 03/21/17 19:23 Q6 PRN Nausea/Vomiting, Can't Take PO Throat Lozenges 1 ea 09/26/16 18:09 Cepacol Lozenge PO 03/25/17 18:08 PRN PRN Sore Throat Total Parenteral Nutrition 1 ea 09/29/16 11:00 Pharmacy To DoseTpn MISC 03/28/17 10:59 AD LISSET Total Parenteral Nutrition 1 ea 09/29/16 21:00 10/06/16 22:03 Hyperalimentation IV 03/28/17 20:59 1 ea DAILY21 LISSET Administration Ursodiol 300 mg 09/22/16 21:00 09/24/16 21:07 Actigall PO 03/21/17 20:59 300 mg HS LISSET Administration Ursodiol 600 mg 09/23/16 09:00 09/25/16 10:57 Actigall PO 03/22/17 08:59 Not Given DAILY LISSET Discontinued Medications Generic Name Dose Route Start Last Admin Trade Name Freq PRN Reason Stop Dose Admin Albuterol Confirm 09/25/16 01:21 Proventil Neb Administered 09/25/16 01:22 Dose 3 ml .ROUTE .STK-MED ONE Azathioprine 50 mg 09/23/16 09:00 09/24/16 09:32 Imuran PO 03/22/17 08:59 Not Given DAILY LISSET Calcium Gluconate 1 dose 09/24/16 07:05 Protocol Calcium IV 03/23/17 07:04 AD PRN Pt on Electrolyte Protocol Protocol Diphenhydramine HCl 25 mg 09/25/16 14:51 09/25/16 21:32 Benadryl PO 03/24/17 14:50 25 mg Q6HRS PRN Administration Itching Enoxaparin Sodium 40 mg 09/23/16 09:00 09/23/16 09:09 Lovenox SC 03/22/17 08:59 Not Given DAILY LISSET Furosemide 40 mg 10/05/16 10:52 10/05/16 11:20 Lasix Injection IVP 10/05/16 10:53 40 mg ONCE ONE Administration Gadobutrol Confirm 09/23/16 09:45 Gadavist 1 Mmol/Ml Administered 09/23/16 09:46 Dose 10 ml IVP .STK-MED ONE Heparin Sodium (Porcine) Confirm 09/25/16 09:50 Heparin Sodium Administered 09/25/16 09:51 Dose 50,000 unit .ROUTE .STK-MED ONE Heparin Sodium (Porcine) 50,000 unit 09/26/16 18:57 Heparin Sodium .ROUTE 09/26/16 18:58 .STK-MED ONE Heparin Sodium (Porcine) 50,000 unit 09/30/16 21:12 Heparin Sodium .ROUTE 09/30/16 21:13 .STK-MED ONE Heparin Sodium (Porcine) 50,000 unit 09/30/16 21:16 Heparin Sodium .ROUTE 09/30/16 21:17 .STK-MED ONE Heparin Sodium (Porcine) 50,000 unit 10/02/16 01:45 Heparin Sodium .ROUTE 10/02/16 01:46 .STK-MED ONE Heparin Sodium (Porcine) 50,000 unit 10/03/16 21:00 Heparin Sodium .ROUTE 10/03/16 21:01 .STK-MED ONE Heparin Sodium (Porcine) 50,000 unit 10/06/16 20:00 Heparin Sodium .ROUTE 10/06/16 20:01 .STK-MED ONE Hydromorphone HCl 0.2 - 0.4 mg 09/22/16 19:09 09/22/16 19:17 Dilaudid IVP 10/02/16 19:08 0.4 mg Q2HRS PRN Administration Pain, Severe Unable to Take PO Hydromorphone HCl 0.5 - 1 mg 09/22/16 19:24 Dilaudid IVP 10/02/16 19:23 Q2HRS PRN Pain, Severe Unable to Take PO Hydromorphone HCl 0 mg 09/22/16 19:59 09/30/16 19:47 Dilaudid Apple Picker IV 10/02/16 19:58 6 mg PRN PRN Administration Pain, Severe Unable to Take PO Protocol Hydromorphone HCl 0 mg 10/01/16 10:58 10/01/16 17:22 Dilaudid Apple Picker IV 10/11/16 10:57 6 mg PRN PRN Administration Pain, Severe Unable to Take PO Protocol Sodium Chloride 1,000 mls @ 100 mls/hr 09/22/16 19:15 Ns IV 03/21/17 19:14 CONT LISSET Sodium Chloride 1,000 mls @ 0 mls/hr 09/22/16 19:02 09/22/16 19:46 Ns IV 09/22/16 19:03 1,000 mls ONCE ONE Administration Wide Open Famotidine/Sodium Chloride 50 mls @ 200 mls/hr 09/22/16 21:00 Pepcid 20 Mg (Premix) IV 03/21/17 20:59 Q12HRS LISSET Sodium Chloride 1,000 mls @ 100 mls/hr 09/22/16 19:30 09/26/16 20:38 Ns IV 03/21/17 19:29 1,000 mls CONT LISSET Administration Pantoprazole Sodium 40 mg/ 100 mls @ 200 mls/hr 09/23/16 09:00 09/26/16 14:39 Sodium Chloride IV 03/22/17 08:59 100 mls DAILY LISSET Administration Piperacillin/Tazobactam/Dextrose 50 mls @ 100 mls/hr 09/23/16 18:00 09/24/16 14:27 Zosyn 3.375 Gm (Premix) IV 10/23/16 17:59 50 mls Q6HRS LISSET Administration Protocol Calcium Gluconate 2 gm/ Sodium 70 mls @ 140 mls/hr 09/24/16 08:35 09/24/16 10 :52 Chloride IV 09/24/16 09:04 70 mls ONCE ONE Administration Sodium Chloride 1,000 mls @ 0 mls/hr 09/24/16 10:09 09/24/16 10:52 Ns IV 09/24/16 10:10 1,000 mls ONCE ONE Administration Wide Open Piperacillin/Tazobactam/Dextrose 50 mls @ 100 mls/hr 09/24/16 18:00 09/26/16 14:39 Zosyn 2.25 Gm (Premix) IV 10/24/16 17:59 50 mls Q6 LISSET Administration Calcium Gluconate 2 gm/ Sodium 70 mls @ 140 mls/hr 09/24/16 18:23 09/24/16 19 :29 Chloride IV 09/24/16 18:52 70 mls ONCE ONE Administration Calcium Gluconate 2 gm/ Sodium 70 mls @ 140 mls/hr 09/24/16 22:16 09/24/16 22 :41 Chloride IV 09/24/16 22:45 70 mls ONCE ONE Administration Calcium Gluconate 2 gm/ Sodium 70 mls @ 140 mls/hr 09/25/16 02:22 09/25/16 02 :44 Chloride IV 09/25/16 02:51 70 mls ONCE ONE Administration Calcium Gluconate 2 gm/ Sodium 70 mls @ 140 mls/hr 09/25/16 06:45 09/25/16 07 :31 Chloride IV 09/25/16 07:14 70 mls ONCE ONE Administration Calcium Gluconate 2 gm/ Sodium 70 mls @ 140 mls/hr 09/25/16 10:37 09/25/16 11 :34 Chloride IV 09/25/16 11:06 70 mls ONCE ONE Administration Calcium Gluconate 2 gm/ Sodium 70 mls @ 140 mls/hr 09/25/16 14:56 09/25/16 15 :20 Chloride IV 09/25/16 15:25 70 mls ONCE ONE Administration Calcium Gluconate 2 gm/ Sodium 70 mls @ 140 mls/hr 09/25/16 18:12 09/25/16 19 :29 Chloride IV 09/25/16 18:41 70 mls ONCE ONE Administration Sodium Chloride 500 mls @ 0 mls/hr 09/25/16 18:30 09/25/16 17:45 Ns IV 09/25/16 18:31 500 mls ONCE ONE Administration Wide Open Calcium Gluconate 2 gm/ Sodium 70 mls @ 140 mls/hr 09/25/16 22:27 09/25/16 22 :39 Chloride IV 09/25/16 22:56 70 mls ONCE ONE Administration Calcium Gluconate 2 gm/ Sodium 70 mls @ 140 mls/hr 09/26/16 02:26 09/26/16 02 :36 Chloride IV 09/26/16 02:55 70 mls ONCE ONE Administration Calcium Gluconate 2 gm/ Sodium 70 mls @ 140 mls/hr 09/26/16 07:10 09/26/16 13 :43 Chloride IV 09/26/16 07:39 70 mls ONCE ONE Administration Pantoprazole Sodium 40 mg/ 100 mls @ 200 mls/hr 09/26/16 21:00 09/27/16 08:26 Sodium Chloride IV 03/25/17 20:59 100 mls BID LISSET Administration Potassium Chloride 50 mls @ 50 mls/hr 09/26/16 21:19 09/27/16 05:44 Potassium Cl 10 Meq (Premix) IV 09/27/16 00:18 Not Given Q1H LISSET Calcium Gluconate 50 mls @ 100 mls/hr 09/26/16 21:23 09/27/16 00:26 Calcium Gluconate 1 Gm (Premix) IV 09/26/16 21:52 50 mls ONCE ONE Administration Calcium Gluconate 50 mls @ 100 mls/hr 09/27/16 07:08 09/27/16 07:56 Calcium Gluconate 1 Gm (Premix) IV 09/27/16 07:37 50 mls ONCE ONE Administration Potassium Chloride 50 mls @ 50 mls/hr 09/27/16 08:39 09/27/16 14:36 Potassium Cl 10 Meq (Premix) IV 09/27/16 11:38 Not Given Q1H LISSET Dexmedetomidine HCl 400 mcg/ 104 mls @ 0 mls/hr 09/27/16 18:30 09/29/16 22:18 Sodium Chloride IV 03/26/17 18:29 104 mls CONT LISSET Administration Protocol Titrate Calcium Gluconate 50 mls @ 100 mls/hr 09/27/16 21:00 09/27/16 20:39 Calcium Gluconate 1 Gm (Premix) IV 09/27/16 21:29 50 mls ONCE ONE Administration Calcium Gluconate 50 mls @ 100 mls/hr 09/28/16 04:30 09/28/16 04:42 Calcium Gluconate 1 Gm (Premix) IV 09/28/16 04:59 50 mls ONCE ONE Administration Calcium Gluconate 50 mls @ 100 mls/hr 09/28/16 07:46 09/28/16 10:43 Calcium Gluconate 1 Gm (Premix) IV 09/28/16 08:15 50 mls ONCE ONE Administration Calcium Gluconate 1 gm/ 60 mls @ 120 mls/hr 09/29/16 11:30 09/29/16 11:56 Dextrose IV 09/29/16 11:59 60 mls ONCE ONE Administration Calcium Gluconate 50 mls @ 100 mls/hr 09/29/16 12:00 09/29/16 11:45 Calcium Gluconate 1 Gm (Premix) IV 09/29/16 12:29 50 mls ONCE ONE Administration Pantoprazole Sodium 40 mg/ 100 mls @ 200 mls/hr 09/29/16 12:00 10/04/16 18:02 Sodium Chloride IV 03/28/17 11:59 100 mls DAILY LISSET Administration Potassium Chloride 50 mls @ 25 mls/hr 09/29/16 19:30 09/29/16 20:28 Potassium Cl 20 Meq (Premix) IV 09/29/16 21:29 50 mls ONCE ONE Administration Calcium Gluconate 50 mls @ 100 mls/hr 09/30/16 04:42 09/30/16 05:15 Calcium Gluconate 1 Gm (Premix) IV 09/30/16 05:11 50 mls ONCE ONE Administration Dexmedetomidine HCl 400 mcg/ 104 mls @ 0 mls/hr 09/30/16 10:58 09/30/16 21:38 Sodium Chloride IV 03/29/17 10:57 104 mls HS PRN Administration INSOMNIA Protocol Titrate Potassium Chloride 50 mls @ 25 mls/hr 09/30/16 22:12 09/30/16 22:51 Potassium Cl 20 Meq (Premix) IV 10/01/16 00:11 50 mls ONCE ONE Administration Cefepime HCl 1 gm/ Dextrose 50 mls @ 100 mls/hr 10/02/16 18:30 10/02/16 18:47 IV 10/02/16 18:59 50 mls ONCE ONE Administration Cefepime HCl 1 gm/ Dextrose 50 mls @ 100 mls/hr 10/03/16 09:00 10/03/16 11:05 IV 11/02/16 08:59 Not Given Q12HRS LISSET Protocol Cefepime HCl 1 gm/ Dextrose 50 mls @ 100 mls/hr 10/03/16 21:00 IV 11/02/16 20:59 Q12HRS LISSET Protocol Calcium Gluconate 50 mls @ 100 mls/hr 10/04/16 21:59 10/04/16 22:36 Calcium Gluconate 1 Gm (Premix) IV 10/04/16 22:28 50 mls ONCE ONE Administration Insulin Human Regular 0 unit 09/22/16 21:00 09/29/16 09:03 Humulin R SC 03/21/17 20:59 2 units ACHS LISSET Administration Protocol Insulin Human Regular 0 unit 09/29/16 12:00 10/01/16 06:01 Humulin R SC 03/28/17 11:59 4 units Q6 LISSET Administration Protocol Iopamidol Confirm 09/22/16 16:13 Isovue-370 Administered 09/22/16 16:14 Dose 150 ml IV .STK-MED ONE Lidocaine HCl Confirm 09/25/16 09:50 Lidocaine Hcl 1% Administered 09/25/16 09:51 Dose 30 ml .ROUTE .STK-MED ONE Methylprednisolone Sodium Succinate 30 mg 09/24/16 11:53 09/24/16 12:26 Solu-Medrol IVP 09/24/16 11:54 30 mg Q12 STA Administration Methylprednisolone Sodium Succinate 30 mg 09/24/16 21:00 09/25/16 08:49 Solu-Medrol IVP 03/23/17 20:59 30 mg Q12 LISSET Administration Methylprednisolone Sodium Succinate 20 mg 09/25/16 10:09 09/26/16 12:00 Solu-Medrol IVP 03/23/17 20:59 20 mg Q12 LISSET Administration Pantoprazole Sodium 40 mg 09/27/16 09:00 Protonix PO 03/26/17 08:59 DAILY LISSET Pantoprazole Sodium 40 mg 09/28/16 09:00 09/29/16 09:04 Protonix PO 03/27/17 08:59 40 mg DAILY LISSET Administration Potassium Chloride 1 dose 09/22/16 19:26 Protocol Potassium MISC 03/21/17 19:25 AD PRN Pt on Electrolyte Protocol Protocol Potassium Chloride 30 meq 09/22/16 20:52 09/22/16 21:03 Klor-Con PO 09/22/16 20:53 30 meq ONCE ONE Administration Protocol Potassium Chloride 10 meq 09/27/16 21:13 09/27/16 21:58 Klor-Con PO 09/27/16 21:14 10 meq ONCE ONE Administration Protocol Physical Exam - Physical Exam General Appearance: alert, no apparent distress Respiratory: lungs clear Cardiac/Chest: regular rate, rhythm Abdomen: normal bowel sounds, soft, other (abdominal distention) Skin: normal color, warm/dry Neuro/Psych: alert, normal mood/affect, oriented x 3 ICD10 Worksheet Patient Problems: Problems Problem Status Onset Pancreatitis Acute
[2016-10-07] MEDS: PANTOPRAZOLE SODIUM 40 MG in NS 100 ML IV SCH (18:10)
[2016-10-07] MEDS: TPN 1 EA BAG IV SCH (22:06)
[2016-10-08] MEDS: INSULIN REGULAR, HUMAN 100 UNIT/1 ML VIAL HIGH SC SCH ×4 (00:32→18:44)
[2016-10-08] MEDS: LORazepam 2 MG/ML INJ IVP PRN (01:19)
[2016-10-08] MEDS ORDERED: LORazepam 1 MG TAB PO ONE (04:30)
[2016-10-08 05:08] LABS: IONIZED CALCIUM 1.25 MMOL/L (1.12-1.30)
[2016-10-08] MEDS: IPRATROPIUM/ALBUTEROL 3 ML DEYVIAL IH SCH ×4 (05:18→22:37)
[2016-10-08 05:23] LABS: ALANINE AMINOTRANSFERASE 41 IU/L (9-52); ALBUMIN 2.2 g/dL (3.5-5.0); ALKALINE PHOSPHATASE 108 IU/L (38-126); ANION GAP 11 mEq/L (8-16); ASPARTATE AMINOTRANSFERASE 39 IU/L (14-46); CALCIUM 8.5 mg/dL (8.5-10.4); CARBON DIOXIDE 22 mEq/l (22-31); CHLORIDE 99 mEq/L (97-110); GLOMERULAR FILTRATION RATE 11; GLUCOSE 126 mg/dL (70-100); MAGNESIUM 1.9 mg/dL (1.6-2.3); POTASSIUM 3.7 mEq/L (3.5-5.2); SODIUM 132 mEq/L (134-144); TOTAL PROTEIN 5.5 g/dL (6.3-8.2); TRIGLYCERIDE 92 mg/dL (35-135)
[2016-10-08 05:26] LABS: INR 1.2 (0.83-1.16); PROTIME(PATIENT) 15.2 SEC (12.0-15.0)
[2016-10-08 05:27] LABS: APTT 32.5 SEC (23.0-38.0)
[2016-10-08 06:07] LABS: ADD DIFF? YES; ADD MORPH? NO; ATYPICAL LYMPHOCYTE FLAG 30 (0-99); FRAGMENT RBC FLAG 0 (0-99); HEMATOCRIT 21.5 % (38.0-47.0); HEMOGLOBIN 7.4 g/dL (12.6-16.3); LIPEMIA HEMOLYSIS FLAG 90 (0-99); MEAN CELL HEMOGLOBIN CONCENTR. 34.4 g/dL (32.4-36.7); MEAN PLATELET VOLUME 9.9 fL (8.7-11.7); PLATELET CLUMPS FLAG 50 (0-99); PLATELET COUNT 220 10^3/uL (150-400); RED BLOOD CELL COUNT 2.39 10^6/uL (4.18-5.33); RED CELL DISTRIBUTION WIDTH 14.9 % (11.5-15.2)
[2016-10-08] MEDS: HEPARIN 5,000 UNIT/0.5 ML SYR SC SCH ×3 (06:11→21:35)
[2016-10-08 06:38] LABS: ADD SCAN? NO; LEFT SHIFT FLG 140 (0-99)
[2016-10-08 07:17] LABS: POLYCHROMASIA 1+
[2016-10-08 07:19] LABS: GIANT PLATELETS PRESENT; PLATELET ESTIMATE ADEQUATE (ADEQ)
[2016-10-08 07:20] LABS: KERATOCYTES 1+; LARGE PLATELETS PRESENT; MICROCYTES 1+; TOXIC GRANULATION PRESENT
--- NOTE | 2016-10-08 08:27 | HOSPPROG ---
Hospitalist Progress Note Assessment/Plan: #Acute severe pancreatitis: s/p liver biopsy #Autoimmune hepatitis/cholangitis: ursodial #Normocytic anemia: denies bleeding. H/H trending down, now 7.3/. Repeat and transfuse if Hb <7 #Depression: restart Zoloft at lower dose since been off it #ARF: Cr up to 4 today (BL 1.0). Suspected due to ATN. HD on Saturday. UOP improving #Hepatitis C: has not been treated #Leukocytosis: improved to 18 today. Cont Cefepime #Hypervolemic hyponatremia: improved with HD #Somnolence: suspect hypoactive delirium # SIRS/Sepsis: WBC trending down, cont abx for PNA #Severe deconditioning: PT/OT. Rehab at discharge #Metabolic acidosis: resolved #Diet: min PO intake, cont TPN #DVT ppx: SQH #Disp: warrants inpt admission given pancreatitis, requiring IV abx, TPN Subjective: very tired today Objective: Vital Signs Temp Pulse Resp BP Pulse Ox 36.9 C 78 19 148/72 H 97 10/08/16 07:31 10/08/16 07:31 10/08/16 07:31 10/08/16 07:31 10/08/16 07:31 Microbiology 10/03/16 05:45 Blood Culture - Final Blood 10/03/16 05:25 Blood Culture - Final Blood Laboratory Results 10/08/16 04:45 10/08/16 04:45 10/07/16 10/08/16 10/09/16 05:59 05:59 05:59 Intake Total 1913 1277.2 Output Total 1300 2000 Balance 613 -722.8 PT 15.2 SEC (12.0-15.0) H 10/08/16 04:45 INR 1.20 (0.83-1.16) H 10/08/16 04:45 - Physical Exam Constitutional: chronically ill appearing, obese Eyes: PERRL Ears, Nose, Mouth, Throat: moist mucous membranes, hearing normal Cardiovascular: regular rate and rhythym, no murmur, rub, or gallop Respiratory: no respiratory distress, no rales or rhonchi Gastrointestinal: distension (no pain with palpation ) Genitourinary: no bladder fullness Skin: warm Musculoskeletal: generalized weakness Neurologic: AAOx3 (but slow to answer questions), asterixes (none), CN II-XII Intact Psychiatric: flat affect ICD10 Worksheet Patient Problems: Problems Problem Status Onset Pancreatitis Acute
[2016-10-08] MEDS: OXYMETAZOLINE 30 ML NASAL SPRAY EACHNARE SCH ×2 (09:42→21:35)
[2016-10-08 10:44] LABS: HEMATOCRIT 21.8 % (38.0-47.0); HEMOGLOBIN 7.3 g/dL (12.6-16.3)
[2016-10-08] MEDS ORDERED: hydrALAZINE 10 MG TAB PO PRN (16:25)
[2016-10-08] MEDS ORDERED: amLODIPine BESYLATE 5 MG TAB PO SCH (16:30)
--- NOTE | 2016-10-08 16:47 | SOAPPROG ---
SOAP Progress Note Assessment/Plan: Assessment: 1. arf: presumed ischemic atn, uo now greatly increased over past few days. Lytes stable, will hold off on hd tomorrow and follow creat trend. 2. HypoNa: improved. 3. Overload: improved and now with increased uo. Could add lasix if needed but for now would prefer to avoid. 4. pancreatitis: on tpn 5. anemia: trending down, will likely need transfusion. Plan: 10/02/16 16:31 10/08/16 16:44 Subjective: Multiple c/o but overall seems to be doing better. Objective: Vital Signs Temp Pulse Resp BP Pulse Ox 36.9 C 90 18 174/68 H 93 10/08/16 15:34 10/08/16 15:34 10/08/16 15:34 10/08/16 15:34 10/08/16 15:34 Microbiology 10/03/16 05:45 Blood Culture - Final Blood 10/03/16 05:25 Blood Culture - Final Blood Laboratory Results 10/08/16 10:10 10/08/16 04:45 10/07/16 10/08/16 10/09/16 05:59 05:59 05:59 Intake Total 1913 1277.2 Output Total 1300 2000 300 Balance 613 -722.8 -300 PT 15.2 SEC (12.0-15.0) H 10/08/16 04:45 INR 1.20 (0.83-1.16) H 10/08/16 04:45 Physical Exam - Physical Exam General Appearance: no apparent distress Respiratory: lungs clear (anteriorly) Cardiac/Chest: regular rate, rhythm Abdomen: soft Extremities: swelling (decreased from previous) ICD10 Worksheet Patient Problems: Problems Problem Status Onset Pancreatitis Acute
--- NOTE | 2016-10-08 17:24 | SOAPPROG ---
SOAP Progress Note Assessment/Plan: Assessment: Still with intermittent abdominal pain and difficulty eating. Plan: Will proceed with Imaging. Talked to Radiology, to evaluate pancrease, exclude pseudocyst will proceed with non contrast MRI of the pancreas. 10/08/16 17:21 Subjective: CC: Autoimmune Cholangitis/Hepatitis. S/p liver bx with complication of pancreatitis. Still with abdominal discomfort. Objective: Vital Signs Temp Pulse Resp BP Pulse Ox 36.9 C 90 18 174/68 H 93 10/08/16 15:34 10/08/16 15:34 10/08/16 15:34 10/08/16 15:34 10/08/16 15:34 Microbiology 10/03/16 05:45 Blood Culture - Final Blood 10/03/16 05:25 Blood Culture - Final Blood Laboratory Results 10/08/16 10:10 10/08/16 04:45 10/07/16 10/08/16 10/09/16 05:59 05:59 05:59 Intake Total 1913 1277.2 Output Total 1300 2000 300 Balance 613 -722.8 -300 PT 15.2 SEC (12.0-15.0) H 10/08/16 04:45 INR 1.20 (0.83-1.16) H 10/08/16 04:45 Generic Name Dose Route Start Last Admin Trade Name Freq PRN Reason Stop Dose Admin Albuterol/Ipratropium 3 ml 09/25/16 06:00 10/08/16 11:58 Duoneb IH 03/24/17 05:59 3 ml Q6HRS LISSET Administration Alteplase, Recombinant 2 mg 09/24/16 18:13 Cathflo Activase IVP 03/23/17 18:12 PRN PRN Per PICC line policy Dextrose 25 gm 09/22/16 19:26 Dextrose 50% Syringe IVP 03/21/17 19:25 PRN PRN Hypoglycemia Heparin Sodium (Porcine) 5,000 unit 09/24/16 09:00 10/08/16 14:01 Heparin Sc Injection SC 03/23/17 08:59 5,000 unit 0600,1400,2200 LISSET Administration Hydralazine HCl 10 mg 10/08/16 16:25 Apresoline PO 04/06/17 16:24 Q8H PRN hypertension Hydromorphone HCl 1 - 2 mg 10/08/16 16:41 Dilaudid PO 10/18/16 16:40 Q8H PRN Pain, Severe Able to Take PO Dextrose 1,000 mls @ 0 mls/hr 09/29/16 10:56 D10w IV 03/28/17 10:55 PRN PRN TPN interruption As Directed Cefepime HCl 1 gm/ Dextrose 50 mls @ 100 mls/hr 10/03/16 17:00 10/07/16 17:23 IV 10/10/16 06:00 50 mls DAILY@1700 LISSET Administration Sodium Chloride 1,000 mls @ 0 mls/hr 10/03/16 13:00 Ns IV 04/01/17 12:59 CONT LISSET As Directed Pantoprazole Sodium 40 mg/ 100 mls @ 200 mls/hr 10/05/16 18:00 10/07/16 18:10 Sodium Chloride IV 04/03/17 17:59 100 mls DAILY18 LISSET Administration Insulin Human Regular 4 - 20 unit 10/01/16 08:30 10/08/16 11:57 Humulin R SC 03/30/17 08:29 16 units Q6 LISSET Administration Protocol Melatonin 3 mg 10/08/16 21:00 Melatonin PO 04/06/17 20:59 HS LISSET Naloxone HCl 0 mg 09/22/16 19:59 Narcan IVP 03/21/17 19:58 PRN PRN Respiratory depression Protocol Ondansetron HCl 4 mg 09/22/16 19:24 Zofran IVP 03/21/17 19:23 Q4 PRN Nausea/Vomiting, Can't Take PO Oxymetazoline HCl 2 sprays 09/30/16 10:30 10/08/16 09:42 Afrin Nasal [place] [employer] 03/29/17 10:29 2 sprays BID LISSET Administration Promethazine HCl 6.25 mg 09/22/16 19:24 Phenergan IVP 03/21/17 19:23 Q6 PRN Nausea/Vomiting, Can't Take PO Sertraline HCl 25 mg 10/09/16 09:00 Zoloft PO 04/07/17 08:59 DAILY LISSET Throat Lozenges 1 ea 09/26/16 18:09 Cepacol Lozenge PO 03/25/17 18:08 PRN PRN Sore Throat Total Parenteral Nutrition 1 ea 09/29/16 11:00 Pharmacy To DoseTpn MISC 03/28/17 10:59 AD LISSET Total Parenteral Nutrition 1 ea 09/29/16 21:00 10/07/16 22:06 Hyperalimentation IV 03/28/17 20:59 1 ea DAILY21 LISSET Administration Ursodiol 300 mg 09/22/16 21:00 09/24/16 21:07 Actigall PO 03/21/17 20:59 300 mg HS LISSET Administration Ursodiol 600 mg 09/23/16 09:00 09/25/16 10:57 Actigall PO 03/22/17 08:59 Not Given DAILY LISSET Discontinued Medications Generic Name Dose Route Start Last Admin Trade Name Adeline PRN Reason Stop Dose Admin Acetaminophen 650 mg 09/22/16 19:24 Tylenol Rectal KS 03/21/17 19:23 Q4 PRN Pain, Mild/Fever,Can't Take PO Albuterol Confirm 09/25/16 01:21 Proventil Neb Administered 09/25/16 01:22 Dose 3 ml .ROUTE .STK-MED ONE Amlodipine Besylate 5 mg 10/08/16 16:30 Norvasc PO 04/06/17 16:29 DAILY [facility] Azathioprine 50 mg 09/23/16 09:00 09/24/16 09:32 Imuran PO 03/22/17 08:59 Not Given DAILY [facility] Calcium Gluconate 1 dose 09/24/16 07:05 Protocol Calcium IV 03/23/17 07:04 AD PRN Pt on Electrolyte Protocol Protocol Diphenhydramine HCl 25 mg 09/25/16 14:51 09/25/16 21:32 Benadryl PO 03/24/17 14:50 25 mg Q6HRS PRN Administration Itching Enoxaparin Sodium 40 mg 09/23/16 09:00 09/23/16 09:09 Lovenox SC 03/22/17 08:59 Not Given DAILY [facility] Furosemide 40 mg 10/05/16 10:52 10/05/16 11:20 Lasix Injection IVP 10/05/16 10:53 40 mg ONCE ONE Administration Gadobutrol Confirm 09/23/16 09:45 Gadavist 1 Mmol/Ml Administered 09/23/16 09:46 Dose 10 ml IVP .STK-MED ONE Heparin Sodium (Porcine) Confirm 09/25/16 09:50 Heparin Sodium Administered 09/25/16 09:51 Dose 50,000 unit .ROUTE .STK-MED ONE Heparin Sodium (Porcine) 50,000 unit 09/26/16 18:57 Heparin Sodium .ROUTE 09/26/16 18:58 .STK-MED ONE Heparin Sodium (Porcine) 50,000 unit 09/30/16 21:12 Heparin Sodium .ROUTE 09/30/16 21:13 .STK-MED ONE Heparin Sodium (Porcine) 50,000 unit 09/30/16 21:16 Heparin Sodium .ROUTE 09/30/16 21:17 .STK-MED ONE Heparin Sodium (Porcine) 50,000 unit 10/02/16 01:45 Heparin Sodium .ROUTE 10/02/16 01:46 .STK-MED ONE Heparin Sodium (Porcine) 50,000 unit 10/03/16 21:00 Heparin Sodium .ROUTE 10/03/16 21:01 .STK-MED ONE Heparin Sodium (Porcine) 50,000 unit 10/06/16 20:00 Heparin Sodium .ROUTE 10/06/16 20:01 .STK-MED ONE Hydromorphone HCl 0.2 - 0.4 mg 09/22/16 19:09 09/22/16 19:17 Dilaudid IVP 10/02/16 19:08 0.4 mg Q2HRS PRN Administration Pain, Severe Unable to Take PO Hydromorphone HCl 0.5 - 1 mg 09/22/16 19:24 Dilaudid IVP 10/02/16 19:23 Q2HRS PRN Pain, Severe Unable to Take PO Hydromorphone HCl 0 mg 09/22/16 19:59 09/30/16 19:47 Dilaudid [employer] IV 10/02/16 19:58 6 mg PRN PRN Administration Pain, Severe Unable to Take PO Protocol Hydromorphone HCl 0 mg 10/01/16 10:58 10/01/16 17:22 Dilaudid [employer] IV 10/11/16 10:57 6 mg PRN PRN Administration Pain, Severe Unable to Take PO Protocol Hydromorphone HCl 0.2 mg 10/03/16 16:46 10/07/16 23:05 Dilaudid IVP 10/13/16 16:45 0.2 mg Q2HRS PRN Administration Pain, Severe Unable to Take PO Sodium Chloride 1,000 mls @ 100 mls/hr 09/22/16 19:15 Ns IV 03/21/17 19:14 CONT LISSET Sodium Chloride 1,000 mls @ 0 mls/hr 09/22/16 19:02 09/22/16 19:46 Ns IV 09/22/16 19:03 1,000 mls ONCE ONE Administration Wide Open Famotidine/Sodium Chloride 50 mls @ 200 mls/hr 09/22/16 21:00 Pepcid 20 Mg (Premix) IV 03/21/17 20:59 Q12HRS LISSET Sodium Chloride 1,000 mls @ 100 mls/hr 09/22/16 19:30 09/26/16 20:38 Ns IV 03/21/17 19:29 1,000 mls CONT LISSET Administration Pantoprazole Sodium 40 mg/ 100 mls @ 200 mls/hr 09/23/16 09:00 09/26/16 14:39 Sodium Chloride IV 03/22/17 08:59 100 mls DAILY LISSET Administration Piperacillin/Tazobactam/Dextrose 50 mls @ 100 mls/hr 09/23/16 18:00 09/24/16 14:27 Zosyn 3.375 Gm (Premix) IV 10/23/16 17:59 50 mls Q6HRS LISSET Administration Protocol Calcium Gluconate 2 gm/ Sodium 70 mls @ 140 mls/hr 09/24/16 08:35 09/24/16 10 :52 Chloride IV 09/24/16 09:04 70 mls ONCE ONE Administration Sodium Chloride 1,000 mls @ 0 mls/hr 09/24/16 10:09 09/24/16 10:52 Ns IV 09/24/16 10:10 1,000 mls ONCE ONE Administration Wide Open Piperacillin/Tazobactam/Dextrose 50 mls @ 100 mls/hr 09/24/16 18:00 09/26/16 14:39 Zosyn 2.25 Gm (Premix) IV 10/24/16 17:59 50 mls Q6 LISSET Administration Calcium Gluconate 2 gm/ Sodium 70 mls @ 140 mls/hr 09/24/16 18:23 09/24/16 19 :29 Chloride IV 09/24/16 18:52 70 mls ONCE ONE Administration Calcium Gluconate 2 gm/ Sodium 70 mls @ 140 mls/hr 09/24/16 22:16 09/24/16 22 :41 Chloride IV 09/24/16 22:45 70 mls ONCE ONE Administration Calcium Gluconate 2 gm/ Sodium 70 mls @ 140 mls/hr 09/25/16 02:22 09/25/16 02 :44 Chloride IV 09/25/16 02:51 70 mls ONCE ONE Administration Calcium Gluconate 2 gm/ Sodium 70 mls @ 140 mls/hr 09/25/16 06:45 09/25/16 07 :31 Chloride IV 09/25/16 07:14 70 mls ONCE ONE Administration Calcium Gluconate 2 gm/ Sodium 70 mls @ 140 mls/hr 09/25/16 10:37 09/25/16 11 :34 Chloride IV 09/25/16 11:06 70 mls ONCE ONE Administration Calcium Gluconate 2 gm/ Sodium 70 mls @ 140 mls/hr 09/25/16 14:56 09/25/16 15 :20 Chloride IV 09/25/16 15:25 70 mls ONCE ONE Administration Calcium Gluconate 2 gm/ Sodium 70 mls @ 140 mls/hr 09/25/16 18:12 09/25/16 19 :29 Chloride IV 09/25/16 18:41 70 mls ONCE ONE Administration Sodium Chloride 500 mls @ 0 mls/hr 09/25/16 18:30 09/25/16 17:45 Ns IV 09/25/16 18:31 500 mls ONCE ONE Administration Wide Open Calcium Gluconate 2 gm/ Sodium 70 mls @ 140 mls/hr 09/25/16 22:27 09/25/16 22 :39 Chloride IV 09/25/16 22:56 70 mls ONCE ONE Administration Calcium Gluconate 2 gm/ Sodium 70 mls @ 140 mls/hr 09/26/16 02:26 09/26/16 02 :36 Chloride IV 09/26/16 02:55 70 mls ONCE ONE Administration Calcium Gluconate 2 gm/ Sodium 70 mls @ 140 mls/hr 09/26/16 07:10 09/26/16 13 :43 Chloride IV 09/26/16 07:39 70 mls ONCE ONE Administration Pantoprazole Sodium 40 mg/ 100 mls @ 200 mls/hr 09/26/16 21:00 09/27/16 08:26 Sodium Chloride IV 03/25/17 20:59 100 mls BID LISSET Administration Potassium Chloride 50 mls @ 50 mls/hr 09/26/16 21:19 09/27/16 05:44 Potassium Cl 10 Meq (Premix) IV 09/27/16 00:18 Not Given Q1H LISSET Calcium Gluconate 50 mls @ 100 mls/hr 09/26/16 21:23 09/27/16 00:26 Calcium Gluconate 1 Gm (Premix) IV 09/26/16 21:52 50 mls ONCE ONE Administration Calcium Gluconate 50 mls @ 100 mls/hr 09/27/16 07:08 09/27/16 07:56 Calcium Gluconate 1 Gm (Premix) IV 09/27/16 07:37 50 mls ONCE ONE Administration Potassium Chloride 50 mls @ 50 mls/hr 09/27/16 08:39 09/27/16 14:36 Potassium Cl 10 Meq (Premix) IV 09/27/16 11:38 Not Given Q1H LISSET Dexmedetomidine HCl 400 mcg/ 104 mls @ 0 mls/hr 09/27/16 18:30 09/29/16 22:18 Sodium Chloride IV 03/26/17 18:29 104 mls CONT LISSET Administration Protocol Titrate Calcium Gluconate 50 mls @ 100 mls/hr 09/27/16 21:00 09/27/16 20:39 Calcium Gluconate 1 Gm (Premix) IV 09/27/16 21:29 50 mls ONCE ONE Administration Calcium Gluconate 50 mls @ 100 mls/hr 09/28/16 04:30 09/28/16 04:42 Calcium Gluconate 1 Gm (Premix) IV 09/28/16 04:59 50 mls ONCE ONE Administration Calcium Gluconate 50 mls @ 100 mls/hr 09/28/16 07:46 09/28/16 10:43 Calcium Gluconate 1 Gm (Premix) IV 09/28/16 08:15 50 mls ONCE ONE Administration Calcium Gluconate 1 gm/ 60 mls @ 120 mls/hr 09/29/16 11:30 09/29/16 11:56 Dextrose IV 09/29/16 11:59 60 mls ONCE ONE Administration Calcium Gluconate 50 mls @ 100 mls/hr 09/29/16 12:00 09/29/16 11:45 Calcium Gluconate 1 Gm (Premix) IV 09/29/16 12:29 50 mls ONCE ONE Administration Pantoprazole Sodium 40 mg/ 100 mls @ 200 mls/hr 09/29/16 12:00 10/04/16 18:02 Sodium Chloride IV 03/28/17 11:59 100 mls DAILY LISSET Administration Potassium Chloride 50 mls @ 25 mls/hr 09/29/16 19:30 09/29/16 20:28 Potassium Cl 20 Meq (Premix) IV 09/29/16 21:29 50 mls ONCE ONE Administration Calcium Gluconate 50 mls @ 100 mls/hr 09/30/16 04:42 09/30/16 05:15 Calcium Gluconate 1 Gm (Premix) IV 09/30/16 05:11 50 mls ONCE ONE Administration Dexmedetomidine HCl 400 mcg/ 104 mls @ 0 mls/hr 09/30/16 10:58 09/30/16 21:38 Sodium Chloride IV 03/29/17 10:57 104 mls HS PRN Administration INSOMNIA Protocol Titrate Potassium Chloride 50 mls @ 25 mls/hr 09/30/16 22:12 09/30/16 22:51 Potassium Cl 20 Meq (Premix) IV 10/01/16 00:11 50 mls ONCE ONE Administration Cefepime HCl 1 gm/ Dextrose 50 mls @ 100 mls/hr 10/02/16 18:30 10/02/16 18:47 IV 10/02/16 18:59 50 mls ONCE ONE Administration Cefepime HCl 1 gm/ Dextrose 50 mls @ 100 mls/hr 10/03/16 09:00 10/03/16 11:05 IV 11/02/16 08:59 Not Given Q12HRS LISSET Protocol Cefepime HCl 1 gm/ Dextrose 50 mls @ 100 mls/hr 10/03/16 21:00 IV 11/02/16 20:59 Q12HRS LISSET Protocol Calcium Gluconate 50 mls @ 100 mls/hr 10/04/16 21:59 10/04/16 22:36 Calcium Gluconate 1 Gm (Premix) IV 10/04/16 22:28 50 mls ONCE ONE Administration Insulin Human Regular 0 unit 09/22/16 21:00 09/29/16 09:03 Humulin R SC 03/21/17 20:59 2 units ACHS LISSET Administration Protocol Insulin Human Regular 0 unit 09/29/16 12:00 10/01/16 06:01 Humulin R SC 03/28/17 11:59 4 units Q6 LISSET Administration Protocol Iopamidol Confirm 09/22/16 16:13 Isovue-370 Administered 09/22/16 16:14 Dose 150 ml IV .STK-MED ONE Lidocaine HCl Confirm 09/25/16 09:50 Lidocaine Hcl 1% Administered 09/25/16 09:51 Dose 30 ml .ROUTE .STK-MED ONE Lorazepam 0.5 mg 09/25/16 22:44 10/08/16 01:19 Ativan Injection IVP 03/24/17 22:43 0.5 mg Q6H PRN Administration Anxiety, Unable to Take PO Lorazepam 1 mg 10/08/16 04:30 10/08/16 04:29 Ativan PO 10/08/16 04:31 1 mg ONCE ONE Administration Methylprednisolone Sodium Succinate 30 mg 09/24/16 11:53 09/24/16 12:26 Solu-Medrol IVP 09/24/16 11:54 30 mg Q12 STA Administration Methylprednisolone Sodium Succinate 30 mg 09/24/16 21:00 09/25/16 08:49 Solu-Medrol IVP 03/23/17 20:59 30 mg Q12 LISSET Administration Methylprednisolone Sodium Succinate 20 mg 09/25/16 10:09 09/26/16 12:00 Solu-Medrol IVP 03/23/17 20:59 20 mg Q12 LISSET Administration Pantoprazole Sodium 40 mg 09/27/16 09:00 Protonix PO 03/26/17 08:59 DAILY LISSET Pantoprazole Sodium 40 mg 09/28/16 09:00 09/29/16 09:04 Protonix PO 03/27/17 08:59 40 mg DAILY LISSET Administration Potassium Chloride 1 dose 09/22/16 19:26 Protocol Potassium MISC 03/21/17 19:25 AD PRN Pt on Electrolyte Protocol Protocol Potassium Chloride 30 meq 09/22/16 20:52 09/22/16 21:03 Klor-Con PO 09/22/16 20:53 30 meq ONCE ONE Administration Protocol Potassium Chloride 10 meq 09/27/16 21:13 09/27/16 21:58 Klor-Con PO 09/27/16 21:14 10 meq ONCE ONE Administration Protocol Physical Exam - Physical Exam General Appearance: alert Respiratory: lungs clear, normal breath sounds Cardiac/Chest: regular rate, rhythm Abdomen: normal bowel sounds, soft, other (mild tenderness with palpation) Skin: normal color, warm/dry Neuro/Psych: no motor/sensory deficits, alert, normal mood/affect ICD10 Worksheet Patient Problems: Problems Problem Status Onset Pancreatitis Acute
[2016-10-08 17:35] LABS: HEMATOCRIT 21.4 % (38.0-47.0); HEMOGLOBIN 7.5 g/dL (12.6-16.3)
[2016-10-08] MEDS: PANTOPRAZOLE SODIUM 40 MG in NS 100 ML IV SCH (18:08)
[2016-10-08] MEDS: CEFEPIME HCL 1 GM in D5W 50 ML IV SCH (18:52)
[2016-10-08] MEDS: MELATONIN 3 MG TAB PO SCH (21:35)
[2016-10-08] MEDS: URSODIOL 300 MG CAP PO SCH (21:35)
[2016-10-08] MEDS: TPN 1 EA BAG IV SCH (21:35)
[2016-10-09] MEDS: INSULIN REGULAR, HUMAN 100 UNIT/1 ML VIAL HIGH SC SCH ×5 (00:25→22:49)
[2016-10-09] MEDS: ONDANSETRON 4 MG/2 ML VIAL IVP PRN (01:35)
[2016-10-09] MEDS: HYDROmorphONE/DILAUDID 2 MG TAB PO PRN ×3 (02:20→22:50)
[2016-10-09] MEDS: IPRATROPIUM/ALBUTEROL 3 ML DEYVIAL IH SCH ×4 (05:24→22:03)
[2016-10-09 05:48] LABS: IONIZED CALCIUM 1.29 MMOL/L (1.12-1.30)
[2016-10-09 05:53] LABS: HEMATOCRIT 24.1 % (38.0-47.0); HEMOGLOBIN 8.5 g/dL (12.6-16.3); MEAN CELL HEMOGLOBIN 31.1 pg (27.9-34.1); MEAN CELL HEMOGLOBIN CONCENTR. 35.3 g/dL (32.4-36.7); MEAN CELL VOLUME 88.3 fL (81.5-99.8); RED BLOOD CELL COUNT 2.73 10^6/uL (4.18-5.33); RED CELL DISTRIBUTION WIDTH 15.1 % (11.5-15.2)
[2016-10-09] MEDS: HEPARIN 5,000 UNIT/0.5 ML SYR SC SCH ×3 (06:14→22:49)
[2016-10-09] MEDS: SERTRALINE HCL 25 MG TAB PO SCH (08:26)
[2016-10-09] MEDS: URSODIOL 300 MG CAP PO SCH ×2 (08:27→22:52)
[2016-10-09] MEDS: OXYMETAZOLINE 30 ML NASAL SPRAY EACHNARE SCH ×2 (08:27→22:50)
--- NOTE | 2016-10-09 08:33 | HOSPPROG ---
Hospitalist Progress Note Assessment/Plan: #Acute encephalopathy: improved today. Stopped several opioids and Ativan. #Acute severe pancreatitis: s/p liver biopsy #Autoimmune hepatitis/cholangitis: ursodial #Normocytic anemia: denies bleeding. H/H trending down. Transfused 1 unit 10/08. #Abdominal pain: persistent. MRI pending #Depression: restart Zoloft at lower dose since been off it #ARF: Cr mildly up, but better UOP. Suspected due to ATN. Holding off HD #Hepatitis C: has not been treated #Leukocytosis: improving. Cont Cefepime #Hypervolemic hyponatremia: improved with HD # SIRS/Sepsis: WBC trending down, cont abx for PNA #Severe deconditioning: PT/OT. Rehab at discharge #Metabolic acidosis: resolved #Diet: min PO intake, cont TPN #DVT ppx: SQH #Disp: warrants inpt admission given pancreatitis, requiring IV abx, TPN Subjective: feels less fatigued today Objective: Vital Signs Temp Pulse Resp BP Pulse Ox 36.6 C 75 16 140/65 H 95 10/09/16 08:00 10/09/16 08:00 10/09/16 08:00 10/09/16 08:00 10/09/16 08:00 Microbiology 10/03/16 05:45 Blood Culture - Final Blood 10/03/16 05:25 Blood Culture - Final Blood Laboratory Results 10/09/16 05:20 10/08/16 04:45 10/08/16 10/09/16 10/10/16 05:59 05:59 05:59 Intake Total 1277.2 1698 Output Total 1999 3650 Balance -722.8 -1952 PT 15.2 SEC (12.0-15.0) H 10/08/16 04:45 INR 1.20 (0.83-1.16) H 10/08/16 04:45 - Physical Exam Constitutional: chronically ill appearing Eyes: PERRL Ears, Nose, Mouth, Throat: moist mucous membranes, hearing normal Cardiovascular: regular rate and rhythym, no murmur, rub, or gallop Respiratory: no respiratory distress, reduced air movement Gastrointestinal: normoactive bowel sounds, tenderness (mildy diffuse. Ecchymoses over abdomen) Genitourinary: no bladder fullness Skin: warm Musculoskeletal: generalized weakness, other (right HD catheter in place) Neurologic: AAOx3 Psychiatric: interacting appropriately, flat affect ICD10 Worksheet Patient Problems: Problems Problem Status Onset Pancreatitis Acute
[2016-10-09 09:28] LABS: CALCIUM 8.9 mg/dL (8.5-10.4); CARBON DIOXIDE 19 mEq/l (22-31); CHLORIDE 103 mEq/L (97-110); CREATININE 4.2 mg/dL (0.6-1.0); GLOMERULAR FILTRATION RATE 11; GLUCOSE 136 mg/dL (70-100); SODIUM 133 mEq/L (134-144)
[2016-10-09 09:35] LABS: ANION GAP 11 mEq/L (8-16); POTASSIUM 3.7 mEq/L (3.5-5.2)
[2016-10-09] MEDS ORDERED: LACTULOSE 20 GM/30 ML UDCUP PO PRN (10:37)
--- NOTE | 2016-10-09 12:04 | SOAPPROG ---
SOAP Progress Note Assessment/Plan: Assessment: 1. ANISH Oliguric ischemic ATN. Now polyuric, although Cr still rising. Holding HD, leave catheter in place for now. Reviewed plan with patient and family. 2. TPN Tolerating. 3. Pancreatitis GI following. Eating. Still with pain and distension. To undergo non contrast MRI. Subjective: Better, but still uncomfortable Objective: Vital Signs Temp Pulse Resp BP Pulse Ox 36.6 C 83 18 149/60 H 98 10/09/16 08:00 10/09/16 11:22 10/09/16 11:22 10/09/16 11:22 10/09/16 11:22 Microbiology 10/03/16 05:45 Blood Culture - Final Blood 10/03/16 05:25 Blood Culture - Final Blood Laboratory Results 10/09/16 05:20 10/09/16 08:53 10/08/16 10/09/16 10/10/16 05:59 05:59 05:59 Intake Total 1277.2 1698 Output Total 1999 3650 100 Balance -722.8 -1952 -100 PT 15.2 SEC (12.0-15.0) H 10/08/16 04:45 INR 1.20 (0.83-1.16) H 10/08/16 04:45 Physical Exam - Physical Exam General Appearance: mild distress Respiratory: lungs clear Cardiac/Chest: regular rate, rhythm Abdomen: distended, other (mild tenderness) Skin: normal color Extremities: pedal edema Neuro/Psych: oriented x 3 ICD10 Worksheet Patient Problems: Problems Problem Status Onset Pancreatitis Acute
--- NOTE | 2016-10-09 14:12 | SOAPPROG ---
SOAP Progress Note Assessment/Plan: Assessment: MRI of abdomen shows Inflammation and small pseudocyst formation. Too small to drain, I suspect this will resolve with time. Since she is symptomatic I would recommend keeping her NPO. Plan: 1. NPO, med and sips ok 2. Cotinine on TPN 3. Follow clinically. If pain and appetite improves can try advancing diet again 4. Will repeat imaging in a couple of weeks. 10/09/16 14:09 Subjective: CC: Pancreatitis Feeling somewhat better today. Ativan helping with anxiety. Still with no appetite and discomfort with eating. Objective: Vital Signs Temp Pulse Resp BP Pulse Ox 36.6 C 83 18 149/60 H 98 10/09/16 08:00 10/09/16 11:22 10/09/16 11:22 10/09/16 11:22 10/09/16 11:22 Laboratory Results 10/09/16 05:20 10/09/16 08:53 10/08/16 10/09/16 10/10/16 05:59 05:59 05:59 Intake Total 1277.2 1698 Output Total 1999 3650 100 Balance -722.8 -1952 -100 PT 15.2 SEC (12.0-15.0) H 10/08/16 04:45 INR 1.20 (0.83-1.16) H 10/08/16 04:45 Generic Name Dose Route Start Last Admin Trade Name Freq PRN Reason Stop Dose Admin Albuterol/Ipratropium 3 ml 09/25/16 06:00 10/09/16 10:55 Duoneb IH 03/24/17 05:59 3 ml Q6HRS LISSET Administration Alteplase, Recombinant 2 mg 09/24/16 18:13 10/08/16 17:59 Cathflo Activase IVP 03/23/17 18:12 2 mg PRN PRN Administration Per PICC line policy Dextrose 25 gm 09/22/16 19:26 Dextrose 50% Syringe IVP 03/21/17 19:25 PRN PRN Hypoglycemia Heparin Sodium (Porcine) 5,000 unit 09/24/16 09:00 10/09/16 06:14 Heparin Sc Injection SC 03/23/17 08:59 5,000 unit 0600,1400,2200 LISSET Administration Hydralazine HCl 10 mg 10/08/16 16:25 Apresoline PO 04/06/17 16:24 Q8H PRN hypertension Hydromorphone HCl 1 - 2 mg 10/08/16 16:41 10/09/16 02:20 Dilaudid PO 10/18/16 16:40 1 mg Q8H PRN Administration Pain, Severe Able to Take PO Dextrose 1,000 mls @ 0 mls/hr 09/29/16 10:56 D10w IV 03/28/17 10:55 PRN PRN TPN interruption As Directed Cefepime HCl 1 gm/ Dextrose 50 mls @ 100 mls/hr 10/03/16 17:00 10/08/16 18:52 IV 10/10/16 06:00 50 mls DAILY@1700 LISSET Administration Pantoprazole Sodium 40 mg/ 100 mls @ 200 mls/hr 10/05/16 18:00 10/08/16 18:08 Sodium Chloride IV 04/03/17 17:59 100 mls DAILY18 LISSET Administration Insulin Human Regular 4 - 20 unit 10/01/16 08:30 10/09/16 12:11 Humulin R SC 03/30/17 08:29 4 units Q6 LISSET Administration Protocol Lactulose 20 gm 10/09/16 10:37 Cephulac PO 04/07/17 15:59 TID PRN Constipation Melatonin 3 mg 10/08/16 21:00 10/08/16 21:35 Melatonin PO 04/06/17 20:59 3 mg HS LISSET Administration Naloxone HCl 0 mg 09/22/16 19:59 Narcan IVP 03/21/17 19:58 PRN PRN Respiratory depression Protocol Ondansetron HCl 4 mg 09/22/16 19:24 10/09/16 01:35 Zofran IVP 03/21/17 19:23 4 mg Q4 PRN Administration Nausea/Vomiting, Can't Take PO Oxymetazoline HCl 2 sprays 09/30/16 10:30 10/09/16 08:27 Afrin Nasal [place]ACH[place]ARE 03/29/17 10:29 2 sprays BID LISSET Administration Promethazine HCl 6.25 mg 09/22/16 19:24 Phenergan IVP 03/21/17 19:23 Q6 PRN Nausea/Vomiting, Can't Take PO Sertraline HCl 25 mg 10/09/16 09:00 10/09/16 08:26 Zoloft PO 04/07/17 08:59 25 mg DAILY LISSET Administration Throat Lozenges 1 ea 09/26/16 18:09 Cepacol Lozenge PO 03/25/17 18:08 PRN PRN Sore Throat Total Parenteral Nutrition 1 ea 09/29/16 11:00 Pharmacy To DoseTpn MISC 03/28/17 10:59 AD LISSET Total Parenteral Nutrition 1 ea 09/29/16 21:00 10/08/16 21:35 Hyperalimentation IV 03/28/17 20:59 1 ea DAILY21 LISSET Administration Ursodiol 300 mg 09/22/16 21:00 10/08/16 21:35 Actigall PO 03/21/17 20:59 300 mg HS LISSET Administration Ursodiol 600 mg 09/23/16 09:00 10/09/16 08:27 Actigall PO 03/22/17 08:59 600 mg DAILY LISSET Administration Discontinued Medications Generic Name Dose Route Start Last Admin Trade Name Adeline PRN Reason Stop Dose Admin Acetaminophen 650 mg 09/22/16 19:24 Tylenol Rectal PA 03/21/17 19:23 Q4 PRN Pain, Mild/Fever,Can't Take PO Albuterol Confirm 09/25/16 01:21 Proventil Neb Administered 09/25/16 01:22 Dose 3 ml .ROUTE .STK-MED ONE Amlodipine Besylate 5 mg 10/08/16 16:30 Norvasc PO 04/06/17 16:29 DAILY LISSET Azathioprine 50 mg 09/23/16 09:00 09/24/16 09:32 Imuran PO 03/22/17 08:59 Not Given DAILY LISSET Calcium Gluconate 1 dose 09/24/16 07:05 Protocol Calcium IV 03/23/17 07:04 AD PRN Pt on Electrolyte Protocol Protocol Diphenhydramine HCl 25 mg 09/25/16 14:51 09/25/16 21:32 Benadryl PO 03/24/17 14:50 25 mg Q6HRS PRN Administration Itching Enoxaparin Sodium 40 mg 09/23/16 09:00 09/23/16 09:09 Lovenox SC 03/22/17 08:59 Not Given DAILY LISSET Furosemide 40 mg 10/05/16 10:52 10/05/16 11:20 Lasix Injection IVP 10/05/16 10:53 40 mg ONCE ONE Administration Gadobutrol Confirm 09/23/16 09:45 Gadavist 1 Mmol/Ml Administered 09/23/16 09:46 Dose 10 ml IVP .STK-MED ONE Heparin Sodium (Porcine) Confirm 09/25/16 09:50 Heparin Sodium Administered 09/25/16 09:51 Dose 50,000 unit .ROUTE .STK-MED ONE Heparin Sodium (Porcine) 50,000 unit 09/26/16 18:57 Heparin Sodium .ROUTE 09/26/16 18:58 .STK-MED ONE Heparin Sodium (Porcine) 50,000 unit 09/30/16 21:12 Heparin Sodium .ROUTE 09/30/16 21:13 .STK-MED ONE Heparin Sodium (Porcine) 50,000 unit 09/30/16 21:16 Heparin Sodium .ROUTE 09/30/16 21:17 .STK-MED ONE Heparin Sodium (Porcine) 50,000 unit 10/02/16 01:45 Heparin Sodium .ROUTE 10/02/16 01:46 .STK-MED ONE Heparin Sodium (Porcine) 50,000 unit 10/03/16 21:00 Heparin Sodium .ROUTE 10/03/16 21:01 .STK-MED ONE Heparin Sodium (Porcine) 50,000 unit 10/06/16 20:00 Heparin Sodium .ROUTE 10/06/16 20:01 .STK-MED ONE Hydromorphone HCl 0.2 - 0.4 mg 09/22/16 19:09 09/22/16 19:17 Dilaudid IVP 10/02/16 19:08 0.4 mg Q2HRS PRN Administration Pain, Severe Unable to Take PO Hydromorphone HCl 0.5 - 1 mg 09/22/16 19:24 Dilaudid IVP 10/02/16 19:23 Q2HRS PRN Pain, Severe Unable to Take PO Hydromorphone HCl 0 mg 09/22/16 19:59 09/30/16 19:47 Dilaudid Access Representative IV 10/02/16 19:58 6 mg PRN PRN Administration Pain, Severe Unable to Take PO Protocol Hydromorphone HCl 0 mg 10/01/16 10:58 10/01/16 17:22 Dilaudid Access Representative IV 10/11/16 10:57 6 mg PRN PRN Administration Pain, Severe Unable to Take PO Protocol Hydromorphone HCl 0.2 mg 10/03/16 16:46 10/07/16 23:05 Dilaudid IVP 10/13/16 16:45 0.2 mg Q2HRS PRN Administration Pain, Severe Unable to Take PO Sodium Chloride 1,000 mls @ 100 mls/hr 09/22/16 19:15 Ns IV 03/21/17 19:14 CONT LISSET Sodium Chloride 1,000 mls @ 0 mls/hr 09/22/16 19:02 09/22/16 19:46 Ns IV 09/22/16 19:03 1,000 mls ONCE ONE Administration Wide Open Famotidine/Sodium Chloride 50 mls @ 200 mls/hr 09/22/16 21:00 Pepcid 20 Mg (Premix) IV 03/21/17 20:59 Q12HRS LISSET Sodium Chloride 1,000 mls @ 100 mls/hr 09/22/16 19:30 09/26/16 20:38 Ns IV 03/21/17 19:29 1,000 mls CONT LISSET Administration Pantoprazole Sodium 40 mg/ 100 mls @ 200 mls/hr 09/23/16 09:00 09/26/16 14:39 Sodium Chloride IV 03/22/17 08:59 100 mls DAILY LISSET Administration Piperacillin/Tazobactam/Dextrose 50 mls @ 100 mls/hr 09/23/16 18:00 09/24/16 14:27 Zosyn 3.375 Gm (Premix) IV 10/23/16 17:59 50 mls Q6HRS LISSET Administration Protocol Calcium Gluconate 2 gm/ Sodium 70 mls @ 140 mls/hr 09/24/16 08:35 09/24/16 10 :52 Chloride IV 09/24/16 09:04 70 mls ONCE ONE Administration Sodium Chloride 1,000 mls @ 0 mls/hr 09/24/16 10:09 09/24/16 10:52 Ns IV 09/24/16 10:10 1,000 mls ONCE ONE Administration Wide Open Piperacillin/Tazobactam/Dextrose 50 mls @ 100 mls/hr 09/24/16 18:00 09/26/16 14:39 Zosyn 2.25 Gm (Premix) IV 10/24/16 17:59 50 mls Q6 LISSET Administration Calcium Gluconate 2 gm/ Sodium 70 mls @ 140 mls/hr 09/24/16 18:23 09/24/16 19 :29 Chloride IV 09/24/16 18:52 70 mls ONCE ONE Administration Calcium Gluconate 2 gm/ Sodium 70 mls @ 140 mls/hr 09/24/16 22:16 09/24/16 22 :41 Chloride IV 09/24/16 22:45 70 mls ONCE ONE Administration Calcium Gluconate 2 gm/ Sodium 70 mls @ 140 mls/hr 09/25/16 02:22 09/25/16 02 :44 Chloride IV 09/25/16 02:51 70 mls ONCE ONE Administration Calcium Gluconate 2 gm/ Sodium 70 mls @ 140 mls/hr 09/25/16 06:45 09/25/16 07 :31 Chloride IV 09/25/16 07:14 70 mls ONCE ONE Administration Calcium Gluconate 2 gm/ Sodium 70 mls @ 140 mls/hr 09/25/16 10:37 09/25/16 11 :34 Chloride IV 09/25/16 11:06 70 mls ONCE ONE Administration Calcium Gluconate 2 gm/ Sodium 70 mls @ 140 mls/hr 09/25/16 14:56 09/25/16 15 :20 Chloride IV 09/25/16 15:25 70 mls ONCE ONE Administration Calcium Gluconate 2 gm/ Sodium 70 mls @ 140 mls/hr 09/25/16 18:12 09/25/16 19 :29 Chloride IV 09/25/16 18:41 70 mls ONCE ONE Administration Sodium Chloride 500 mls @ 0 mls/hr 09/25/16 18:30 09/25/16 17:45 Ns IV 09/25/16 18:31 500 mls ONCE ONE Administration Wide Open Calcium Gluconate 2 gm/ Sodium 70 mls @ 140 mls/hr 09/25/16 22:27 09/25/16 22 :39 Chloride IV 09/25/16 22:56 70 mls ONCE ONE Administration Calcium Gluconate 2 gm/ Sodium 70 mls @ 140 mls/hr 09/26/16 02:26 09/26/16 02 :36 Chloride IV 09/26/16 02:55 70 mls ONCE ONE Administration Calcium Gluconate 2 gm/ Sodium 70 mls @ 140 mls/hr 09/26/16 07:10 09/26/16 13 :43 Chloride IV 09/26/16 07:39 70 mls ONCE ONE Administration Pantoprazole Sodium 40 mg/ 100 mls @ 200 mls/hr 09/26/16 21:00 09/27/16 08:26 Sodium Chloride IV 03/25/17 20:59 100 mls BID LISSET Administration Potassium Chloride 50 mls @ 50 mls/hr 09/26/16 21:19 09/27/16 05:44 Potassium Cl 10 Meq (Premix) IV 09/27/16 00:18 Not Given Q1H LISSET Calcium Gluconate 50 mls @ 100 mls/hr 09/26/16 21:23 09/27/16 00:26 Calcium Gluconate 1 Gm (Premix) IV 09/26/16 21:52 50 mls ONCE ONE Administration Calcium Gluconate 50 mls @ 100 mls/hr 09/27/16 07:08 09/27/16 07:56 Calcium Gluconate 1 Gm (Premix) IV 09/27/16 07:37 50 mls ONCE ONE Administration Potassium Chloride 50 mls @ 50 mls/hr 09/27/16 08:39 09/27/16 14:36 Potassium Cl 10 Meq (Premix) IV 09/27/16 11:38 Not Given Q1H LISSET Dexmedetomidine HCl 400 mcg/ 104 mls @ 0 mls/hr 09/27/16 18:30 09/29/16 22:18 Sodium Chloride IV 03/26/17 18:29 104 mls CONT LISSET Administration Protocol Titrate Calcium Gluconate 50 mls @ 100 mls/hr 09/27/16 21:00 09/27/16 20:39 Calcium Gluconate 1 Gm (Premix) IV 09/27/16 21:29 50 mls ONCE ONE Administration Calcium Gluconate 50 mls @ 100 mls/hr 09/28/16 04:30 09/28/16 04:42 Calcium Gluconate 1 Gm (Premix) IV 09/28/16 04:59 50 mls ONCE ONE Administration Calcium Gluconate 50 mls @ 100 mls/hr 09/28/16 07:46 09/28/16 10:43 Calcium Gluconate 1 Gm (Premix) IV 09/28/16 08:15 50 mls ONCE ONE Administration Calcium Gluconate 1 gm/ 60 mls @ 120 mls/hr 09/29/16 11:30 09/29/16 11:56 Dextrose IV 09/29/16 11:59 60 mls ONCE ONE Administration Calcium Gluconate 50 mls @ 100 mls/hr 09/29/16 12:00 09/29/16 11:45 Calcium Gluconate 1 Gm (Premix) IV 09/29/16 12:29 50 mls ONCE ONE Administration Pantoprazole Sodium 40 mg/ 100 mls @ 200 mls/hr 09/29/16 12:00 10/04/16 18:02 Sodium Chloride IV 03/28/17 11:59 100 mls DAILY LISSET Administration Potassium Chloride 50 mls @ 25 mls/hr 09/29/16 19:30 09/29/16 20:28 Potassium Cl 20 Meq (Premix) IV 09/29/16 21:29 50 mls ONCE ONE Administration Calcium Gluconate 50 mls @ 100 mls/hr 09/30/16 04:42 09/30/16 05:15 Calcium Gluconate 1 Gm (Premix) IV 09/30/16 05:11 50 mls ONCE ONE Administration Dexmedetomidine HCl 400 mcg/ 104 mls @ 0 mls/hr 09/30/16 10:58 09/30/16 21:38 Sodium Chloride IV 03/29/17 10:57 104 mls HS PRN Administration INSOMNIA Protocol Titrate Potassium Chloride 50 mls @ 25 mls/hr 09/30/16 22:12 09/30/16 22:51 Potassium Cl 20 Meq (Premix) IV 10/01/16 00:11 50 mls ONCE ONE Administration Cefepime HCl 1 gm/ Dextrose 50 mls @ 100 mls/hr 10/02/16 18:30 10/02/16 18:47 IV 10/02/16 18:59 50 mls ONCE ONE Administration Cefepime HCl 1 gm/ Dextrose 50 mls @ 100 mls/hr 10/03/16 09:00 10/03/16 11:05 IV 11/02/16 08:59 Not Given Q12HRS LISSET Protocol Cefepime HCl 1 gm/ Dextrose 50 mls @ 100 mls/hr 10/03/16 21:00 IV 11/02/16 20:59 Q12HRS LISSET Protocol Sodium Chloride 1,000 mls @ 0 mls/hr 10/03/16 13:00 Ns IV 04/01/17 12:59 CONT LISSET As Directed Calcium Gluconate 50 mls @ 100 mls/hr 10/04/16 21:59 10/04/16 22:36 Calcium Gluconate 1 Gm (Premix) IV 10/04/16 22:28 50 mls ONCE ONE Administration Insulin Human Regular 0 unit 09/22/16 21:00 09/29/16 09:03 Humulin R SC 03/21/17 20:59 2 units ACHS LISSET Administration Protocol Insulin Human Regular 0 unit 09/29/16 12:00 10/01/16 06:01 Humulin R SC 03/28/17 11:59 4 units Q6 LISSET Administration Protocol Iopamidol Confirm 09/22/16 16:13 Isovue-[id number] Administered 09/22/16 16:14 Dose 150 ml IV .STK-MED ONE Lidocaine HCl Confirm 09/25/16 09:50 Lidocaine Hcl 1% Administered 09/25/16 09:51 Dose 30 ml .ROUTE .STK-MED ONE Lorazepam 0.5 mg 09/25/16 22:44 10/08/16 01:19 Ativan Injection IVP 03/24/17 22:43 0.5 mg Q6H PRN Administration Anxiety, Unable to Take PO Lorazepam 1 mg 10/08/16 04:30 10/08/16 04:29 Ativan PO 10/08/16 04:31 1 mg ONCE ONE Administration Methylprednisolone Sodium Succinate 30 mg 09/24/16 11:53 09/24/16 12:26 Solu-Medrol IVP 09/24/16 11:54 30 mg Q12 STA Administration Methylprednisolone Sodium Succinate 30 mg 09/24/16 21:00 09/25/16 08:49 Solu-Medrol IVP 03/23/17 20:59 30 mg Q12 LISSET Administration Methylprednisolone Sodium Succinate 20 mg 09/25/16 10:09 09/26/16 12:00 Solu-Medrol IVP 03/23/17 20:59 20 mg Q12 LISSET Administration Pantoprazole Sodium 40 mg 09/27/16 09:00 Protonix PO 03/26/17 08:59 DAILY LISSET Pantoprazole Sodium 40 mg 09/28/16 09:00 09/29/16 09:04 Protonix PO 03/27/17 08:59 40 mg DAILY LISSET Administration Potassium Chloride 1 dose 09/22/16 19:26 Protocol Potassium MISC 03/21/17 19:25 AD PRN Pt on Electrolyte Protocol Protocol Potassium Chloride 30 meq 09/22/16 20:52 09/22/16 21:03 Klor-Con PO 09/22/16 20:53 30 meq ONCE ONE Administration Protocol Potassium Chloride 10 meq 09/27/16 21:13 09/27/16 21:58 Klor-Con PO 09/27/16 21:14 10 meq ONCE ONE Administration Protocol Physical Exam - Physical Exam General Appearance: alert, no apparent distress Respiratory: lungs clear Cardiac/Chest: regular rate, rhythm Abdomen: normal bowel sounds, non-tender, soft Skin: normal color, warm/dry Extremities: non-tender Neuro/Psych: no motor/sensory deficits, alert, normal mood/affect, oriented x 3 ICD10 Worksheet Patient Problems: Problems Problem Status Onset Pancreatitis Acute
[2016-10-09] MEDS: CEFEPIME HCL 1 GM in D5W 50 ML IV SCH (17:00)
[2016-10-09] MEDS: PANTOPRAZOLE SODIUM 40 MG in NS 100 ML IV SCH (17:46)
[2016-10-09] MEDS: MELATONIN 3 MG TAB PO SCH (22:50)
[2016-10-09] MEDS: TPN 1 EA BAG IV SCH (22:51)
[2016-10-10] MEDS: HEPARIN 5,000 UNIT/0.5 ML SYR SC SCH ×3 (04:37→21:54)
[2016-10-10] MEDS: HYDROmorphONE/DILAUDID 2 MG TAB PO PRN ×3 (04:46→22:30)
[2016-10-10 04:49] LABS: IONIZED CALCIUM 1.31 MMOL/L (1.12-1.30)
[2016-10-10 05:02] LABS: ANION GAP 11 mEq/L (8-16); CARBON DIOXIDE 19 mEq/l (22-31); CHLORIDE 105 mEq/L (97-110); GLOMERULAR FILTRATION RATE 11; GLUCOSE 89 mg/dL (70-100); MAGNESIUM 1.9 mg/dL (1.6-2.3); POTASSIUM 3.5 mEq/L (3.5-5.2); SODIUM 135 mEq/L (134-144)
[2016-10-10] MEDS: INSULIN REGULAR, HUMAN 100 UNIT/1 ML VIAL HIGH SC SCH ×4 (05:08→23:04)
[2016-10-10] MEDS: IPRATROPIUM/ALBUTEROL 3 ML DEYVIAL IH SCH ×4 (06:04→22:01)
[2016-10-10] MEDS: SERTRALINE HCL 25 MG TAB PO SCH (08:39)
[2016-10-10] MEDS: URSODIOL 300 MG CAP PO SCH ×2 (08:40→21:54)
[2016-10-10] MEDS: OXYMETAZOLINE 30 ML NASAL SPRAY EACHNARE SCH ×2 (08:45→21:56)
--- NOTE | 2016-10-10 10:43 | SOAPPROG ---
SOAP Progress Note Assessment/Plan: Assessment: Reviewed MRI of abdomen with Dr. Metz. There are inflammatory changes c/w pancreatitis. Small amount of ascites. There is a pseudocyst, but it is small. (10 cm x 2 cm). This is not amenable to IR drainage and would not proceed with EUS and endoscopic drainage at this point. Patient does report upper abdominal pain, but she says that it does not matter if she eats or not. Also reviewing record, prior liver biopsy result and discussing with Dr. Calles , patient does not have hepatitis C. HCV ab is negative and there is no history of HCV in her outpatient record. Plan: 1. Have checked LFTs ad Lipase again. Labs pending. If those are still normal I would again try to advance her diet to a low fat diet. When taking PO adequately I would recommend tapering off of TPN 2. I would add Pancreatic Enzymes with meals 3. Optimize her pain control and try PO pain meds. Patient reports she does better if she takes pain meds just before bedtime 4. Patient needs to ambulate and get out of bed. Anticipate that she will need rehab after discharge before going home 5. Continue on Actigall. Would not resume Imuran until after discharge. Dr. Calles will restart in follow up as outpatient 6. She will need out patient imaging of the abdomen to follow up pseudocyst to resolution 10/10/16 11:01 Subjective: CC: Pancreatitis s/p liver biopsy presumed hematobilia. Patient with intermittent abdominal pain. She does not report that it matters whether or not if she eats. Having BM's. Patient is off of dialysis. Objective: Vital Signs Temp Pulse Resp BP Pulse Ox 36.6 C 71 22 H 144/65 H 93 10/10/16 07:36 10/10/16 07:36 10/10/16 07:36 10/10/16 07:36 10/10/16 07:36 Laboratory Results 10/09/16 05:20 10/10/16 04:40 10/09/16 10/10/16 10/11/16 05:59 05:59 05:59 Intake Total 1698 891 Output Total 3650 1200 250 Balance -1952 -309 -250 PT 15.2 SEC (12.0-15.0) H 10/08/16 04:45 INR 1.20 (0.83-1.16) H 10/08/16 04:45 Generic Name Dose Route Start Last Admin Trade Name Adeline PRN Reason Stop Dose Admin Albuterol/Ipratropium 3 ml 09/25/16 06:00 10/10/16 09:43 Duoneb IH 03/24/17 05:59 3 ml Q6HRS LISSET Administration Alteplase, Recombinant 2 mg 09/24/16 18:13 10/08/16 17:59 Cathflo Activase IVP 03/23/17 18:12 2 mg PRN PRN Administration Per PICC line policy Dextrose 25 gm 09/22/16 19:26 Dextrose 50% Syringe IVP 03/21/17 19:25 PRN PRN Hypoglycemia Heparin Sodium (Porcine) 5,000 unit 09/24/16 09:00 10/10/16 04:37 Heparin Sc Injection SC 03/23/17 08:59 5,000 unit 0600,1400,2200 LISSET Administration Hydralazine HCl 10 mg 10/08/16 16:25 Apresoline PO 04/06/17 16:24 Q8H PRN hypertension Hydromorphone HCl 1 - 2 mg 10/08/16 16:41 10/10/16 04:46 Dilaudid PO 10/18/16 16:40 1 mg Q8H PRN Administration Pain, Severe Able to Take PO Dextrose 1,000 mls @ 0 mls/hr 09/29/16 10:56 D10w IV 03/28/17 10:55 PRN PRN TPN interruption As Directed Pantoprazole Sodium 40 mg/ 100 mls @ 200 mls/hr 10/05/16 18:00 10/09/16 17:46 Sodium Chloride IV 04/03/17 17:59 100 mls DAILY18 LISSET Administration Insulin Human Regular 4 - 20 unit 10/01/16 08:30 10/10/16 05:08 Humulin R SC 03/30/17 08:29 Not Given Q6 LISSET Protocol Lactulose 20 gm 10/09/16 10:37 Cephulac PO 04/07/17 15:59 TID PRN Constipation Melatonin 3 mg 10/08/16 21:00 10/09/16 22:50 Melatonin PO 04/06/17 20:59 3 mg HS LISSET Administration Naloxone HCl 0 mg 09/22/16 19:59 Narcan IVP 03/21/17 19:58 PRN PRN Respiratory depression Protocol Ondansetron HCl 4 mg 09/22/16 19:24 10/09/16 01:35 Zofran IVP 03/21/17 19:23 4 mg Q4 PRN Administration Nausea/Vomiting, Can't Take PO Oxymetazoline HCl 2 sprays 09/30/16 10:30 10/10/16 08:45 Afrin Nasal [place] 03/29/17 10:29 2 sprays BID LISSET Administration Promethazine HCl 6.25 mg 09/22/16 19:24 Phenergan IVP 03/21/17 19:23 Q6 PRN Nausea/Vomiting, Can't Take PO Sertraline HCl 25 mg 10/09/16 09:00 10/10/16 08:39 Zoloft PO 04/07/17 08:59 25 mg DAILY LISSET Administration Throat Lozenges 1 ea 09/26/16 18:09 Cepacol Lozenge PO 03/25/17 18:08 PRN PRN Sore Throat Total Parenteral Nutrition 1 ea 09/29/16 11:00 Pharmacy To DoseTpn MISC 03/28/17 10:59 AD LISSET Total Parenteral Nutrition 1 ea 09/29/16 21:00 10/09/16 22:51 Hyperalimentation IV 03/28/17 20:59 1 ea DAILY21 LISSET Administration Ursodiol 300 mg 09/22/16 21:00 10/09/16 22:52 Actigall PO 03/21/17 20:59 300 mg HS LISSET Administration Ursodiol 600 mg 09/23/16 09:00 10/10/16 08:40 Actigall PO 03/22/17 08:59 600 mg DAILY LISSET Administration Discontinued Medications Generic Name Dose Route Start Last Admin Trade Name Freq PRN Reason Stop Dose Admin Acetaminophen 650 mg 09/22/16 19:24 Tylenol Rectal MD 03/21/17 19:23 Q4 PRN Pain, Mild/Fever,Can't Take PO Albuterol Confirm 09/25/16 01:21 Proventil Neb Administered 09/25/16 01:22 Dose 3 ml .ROUTE .STK-MED ONE Amlodipine Besylate 5 mg 10/08/16 16:30 Norvasc PO 04/06/17 16:29 DAILY LISSET Azathioprine 50 mg 09/23/16 09:00 09/24/16 09:32 Imuran PO 03/22/17 08:59 Not Given DAILY [facility] Calcium Gluconate 1 dose 09/24/16 07:05 Protocol Calcium IV 03/23/17 07:04 AD PRN Pt on Electrolyte Protocol Protocol Diphenhydramine HCl 25 mg 09/25/16 14:51 09/25/16 21:32 Benadryl PO 03/24/17 14:50 25 mg Q6HRS PRN Administration Itching Enoxaparin Sodium 40 mg 09/23/16 09:00 09/23/16 09:09 Lovenox SC 03/22/17 08:59 Not Given DAILY [facility] Furosemide 40 mg 10/05/16 10:52 10/05/16 11:20 Lasix Injection IVP 10/05/16 10:53 40 mg ONCE ONE Administration Gadobutrol Confirm 09/23/16 09:45 Gadavist 1 Mmol/Ml Administered 09/23/16 09:46 Dose 10 ml IVP .STK-MED ONE Heparin Sodium (Porcine) Confirm 09/25/16 09:50 Heparin Sodium Administered 09/25/16 09:51 Dose 50,000 unit .ROUTE .STK-MED ONE Heparin Sodium (Porcine) 50,000 unit 09/26/16 18:57 Heparin Sodium .ROUTE 09/26/16 18:58 .STK-MED ONE Heparin Sodium (Porcine) 50,000 unit 09/30/16 21:12 Heparin Sodium .ROUTE 09/30/16 21:13 .STK-MED ONE Heparin Sodium (Porcine) 50,000 unit 09/30/16 21:16 Heparin Sodium .ROUTE 09/30/16 21:17 .STK-MED ONE Heparin Sodium (Porcine) 50,000 unit 10/02/16 01:45 Heparin Sodium .ROUTE 10/02/16 01:46 .STK-MED ONE Heparin Sodium (Porcine) 50,000 unit 10/03/16 21:00 Heparin Sodium .ROUTE 10/03/16 21:01 .STK-MED ONE Heparin Sodium (Porcine) 50,000 unit 10/06/16 20:00 Heparin Sodium .ROUTE 10/06/16 20:01 .STK-MED ONE Hydromorphone HCl 0.2 - 0.4 mg 09/22/16 19:09 09/22/16 19:17 Dilaudid IVP 10/02/16 19:08 0.4 mg Q2HRS PRN Administration Pain, Severe Unable to Take PO Hydromorphone HCl 0.5 - 1 mg 09/22/16 19:24 Dilaudid IVP 10/02/16 19:23 Q2HRS PRN Pain, Severe Unable to Take PO Hydromorphone HCl 0 mg 09/22/16 19:59 09/30/16 19:47 Dilaudid [employer] IV 10/02/16 19:58 6 mg PRN PRN Administration Pain, Severe Unable to Take PO Protocol Hydromorphone HCl 0 mg 10/01/16 10:58 10/01/16 17:22 Dilaudid [employer] IV 10/11/16 10:57 6 mg PRN PRN Administration Pain, Severe Unable to Take PO Protocol Hydromorphone HCl 0.2 mg 10/03/16 16:46 10/07/16 23:05 Dilaudid IVP 10/13/16 16:45 0.2 mg Q2HRS PRN Administration Pain, Severe Unable to Take PO Sodium Chloride 1,000 mls @ 100 mls/hr 09/22/16 19:15 Ns IV 03/21/17 19:14 CONT LISSET Sodium Chloride 1,000 mls @ 0 mls/hr 09/22/16 19:02 09/22/16 19:46 Ns IV 09/22/16 19:03 1,000 mls ONCE ONE Administration Wide Open Famotidine/Sodium Chloride 50 mls @ 200 mls/hr 09/22/16 21:00 Pepcid 20 Mg (Premix) IV 03/21/17 20:59 Q12HRS LISSET Sodium Chloride 1,000 mls @ 100 mls/hr 09/22/16 19:30 09/26/16 20:38 Ns IV 03/21/17 19:29 1,000 mls CONT LISSET Administration Pantoprazole Sodium 40 mg/ 100 mls @ 200 mls/hr 09/23/16 09:00 09/26/16 14:39 Sodium Chloride IV 03/22/17 08:59 100 mls DAILY LISSET Administration Piperacillin/Tazobactam/Dextrose 50 mls @ 100 mls/hr 09/23/16 18:00 09/24/16 14:27 Zosyn 3.375 Gm (Premix) IV 10/23/16 17:59 50 mls Q6HRS LISSET Administration Protocol Calcium Gluconate 2 gm/ Sodium 70 mls @ 140 mls/hr 09/24/16 08:35 09/24/16 10 :52 Chloride IV 09/24/16 09:04 70 mls ONCE ONE Administration Sodium Chloride 1,000 mls @ 0 mls/hr 09/24/16 10:09 09/24/16 10:52 Ns IV 09/24/16 10:10 1,000 mls ONCE ONE Administration Wide Open Piperacillin/Tazobactam/Dextrose 50 mls @ 100 mls/hr 09/24/16 18:00 09/26/16 14:39 Zosyn 2.25 Gm (Premix) IV 10/24/16 17:59 50 mls Q6 LISSET Administration Calcium Gluconate 2 gm/ Sodium 70 mls @ 140 mls/hr 09/24/16 18:23 09/24/16 19 :29 Chloride IV 09/24/16 18:52 70 mls ONCE ONE Administration Calcium Gluconate 2 gm/ Sodium 70 mls @ 140 mls/hr 09/24/16 22:16 09/24/16 22 :41 Chloride IV 09/24/16 22:45 70 mls ONCE ONE Administration Calcium Gluconate 2 gm/ Sodium 70 mls @ 140 mls/hr 09/25/16 02:22 09/25/16 02 :44 Chloride IV 09/25/16 02:51 70 mls ONCE ONE Administration Calcium Gluconate 2 gm/ Sodium 70 mls @ 140 mls/hr 09/25/16 06:45 09/25/16 07 :31 Chloride IV 09/25/16 07:14 70 mls ONCE ONE Administration Calcium Gluconate 2 gm/ Sodium 70 mls @ 140 mls/hr 09/25/16 10:37 09/25/16 11 :34 Chloride IV 09/25/16 11:06 70 mls ONCE ONE Administration Calcium Gluconate 2 gm/ Sodium 70 mls @ 140 mls/hr 09/25/16 14:56 09/25/16 15 :20 Chloride IV 09/25/16 15:25 70 mls ONCE ONE Administration Calcium Gluconate 2 gm/ Sodium 70 mls @ 140 mls/hr 09/25/16 18:12 09/25/16 19 :29 Chloride IV 09/25/16 18:41 70 mls ONCE ONE Administration Sodium Chloride 500 mls @ 0 mls/hr 09/25/16 18:30 09/25/16 17:45 Ns IV 09/25/16 18:31 500 mls ONCE ONE Administration Wide Open Calcium Gluconate 2 gm/ Sodium 70 mls @ 140 mls/hr 09/25/16 22:27 09/25/16 22 :39 Chloride IV 09/25/16 22:56 70 mls ONCE ONE Administration Calcium Gluconate 2 gm/ Sodium 70 mls @ 140 mls/hr 09/26/16 02:26 09/26/16 02 :36 Chloride IV 09/26/16 02:55 70 mls ONCE ONE Administration Calcium Gluconate 2 gm/ Sodium 70 mls @ 140 mls/hr 09/26/16 07:10 09/26/16 13 :43 Chloride IV 09/26/16 07:39 70 mls ONCE ONE Administration Pantoprazole Sodium 40 mg/ 100 mls @ 200 mls/hr 09/26/16 21:00 09/27/16 08:26 Sodium Chloride IV 03/25/17 20:59 100 mls BID LISSET Administration Potassium Chloride 50 mls @ 50 mls/hr 09/26/16 21:19 09/27/16 05:44 Potassium Cl 10 Meq (Premix) IV 09/27/16 00:18 Not Given Q1H LISSET Calcium Gluconate 50 mls @ 100 mls/hr 09/26/16 21:23 09/27/16 00:26 Calcium Gluconate 1 Gm (Premix) IV 09/26/16 21:52 50 mls ONCE ONE Administration Calcium Gluconate 50 mls @ 100 mls/hr 09/27/16 07:08 09/27/16 07:56 Calcium Gluconate 1 Gm (Premix) IV 09/27/16 07:37 50 mls ONCE ONE Administration Potassium Chloride 50 mls @ 50 mls/hr 09/27/16 08:39 09/27/16 14:36 Potassium Cl 10 Meq (Premix) IV 09/27/16 11:38 Not Given Q1H LISSET Dexmedetomidine HCl 400 mcg/ 104 mls @ 0 mls/hr 09/27/16 18:30 09/29/16 22:18 Sodium Chloride IV 03/26/17 18:29 104 mls CONT LISSET Administration Protocol Titrate Calcium Gluconate 50 mls @ 100 mls/hr 09/27/16 21:00 09/27/16 20:39 Calcium Gluconate 1 Gm (Premix) IV 09/27/16 21:29 50 mls ONCE ONE Administration Calcium Gluconate 50 mls @ 100 mls/hr 09/28/16 04:30 09/28/16 04:42 Calcium Gluconate 1 Gm (Premix) IV 09/28/16 04:59 50 mls ONCE ONE Administration Calcium Gluconate 50 mls @ 100 mls/hr 09/28/16 07:46 09/28/16 10:43 Calcium Gluconate 1 Gm (Premix) IV 09/28/16 08:15 50 mls ONCE ONE Administration Calcium Gluconate 1 gm/ 60 mls @ 120 mls/hr 09/29/16 11:30 09/29/16 11:56 Dextrose IV 09/29/16 11:59 60 mls ONCE ONE Administration Calcium Gluconate 50 mls @ 100 mls/hr 09/29/16 12:00 09/29/16 11:45 Calcium Gluconate 1 Gm (Premix) IV 09/29/16 12:29 50 mls ONCE ONE Administration Pantoprazole Sodium 40 mg/ 100 mls @ 200 mls/hr 09/29/16 12:00 10/04/16 18:02 Sodium Chloride IV 03/28/17 11:59 100 mls DAILY LISSET Administration Potassium Chloride 50 mls @ 25 mls/hr 09/29/16 19:30 09/29/16 20:28 Potassium Cl 20 Meq (Premix) IV 09/29/16 21:29 50 mls ONCE ONE Administration Calcium Gluconate 50 mls @ 100 mls/hr 09/30/16 04:42 09/30/16 05:15 Calcium Gluconate 1 Gm (Premix) IV 09/30/16 05:11 50 mls ONCE ONE Administration Dexmedetomidine HCl 400 mcg/ 104 mls @ 0 mls/hr 09/30/16 10:58 09/30/16 21:38 Sodium Chloride IV 03/29/17 10:57 104 mls HS PRN Administration INSOMNIA Protocol Titrate Potassium Chloride 50 mls @ 25 mls/hr 09/30/16 22:12 09/30/16 22:51 Potassium Cl 20 Meq (Premix) IV 10/01/16 00:11 50 mls ONCE ONE Administration Cefepime HCl 1 gm/ Dextrose 50 mls @ 100 mls/hr 10/02/16 18:30 10/02/16 18:47 IV 10/02/16 18:59 50 mls ONCE ONE Administration Cefepime HCl 1 gm/ Dextrose 50 mls @ 100 mls/hr 10/03/16 09:00 10/03/16 11:05 IV 11/02/16 08:59 Not Given Q12HRS LISSET Protocol Cefepime HCl 1 gm/ Dextrose 50 mls @ 100 mls/hr 10/03/16 21:00 IV 11/02/16 20:59 Q12HRS LISSET Protocol Cefepime HCl 1 gm/ Dextrose 50 mls @ 100 mls/hr 10/03/16 17:00 10/09/16 17:00 IV 10/10/16 06:00 50 mls DAILY@1700 LISSET Administration Sodium Chloride 1,000 mls @ 0 mls/hr 10/03/16 13:00 Ns IV 04/01/17 12:59 CONT LISSET As Directed Calcium Gluconate 50 mls @ 100 mls/hr 10/04/16 21:59 10/04/16 22:36 Calcium Gluconate 1 Gm (Premix) IV 10/04/16 22:28 50 mls ONCE ONE Administration Insulin Human Regular 0 unit 09/22/16 21:00 09/29/16 09:03 Humulin R SC 03/21/17 20:59 2 units ACHS LISSET Administration Protocol Insulin Human Regular 0 unit 09/29/16 12:00 10/01/16 06:01 Humulin R SC 03/28/17 11:59 4 units Q6 LISSET Administration Protocol Iopamidol Confirm 09/22/16 16:13 Isovue-370 Administered 09/22/16 16:14 Dose 150 ml IV .STK-MED ONE Lidocaine HCl Confirm 09/25/16 09:50 Lidocaine Hcl 1% Administered 09/25/16 09:51 Dose 30 ml .ROUTE .STK-MED ONE Lorazepam 0.5 mg 09/25/16 22:44 10/08/16 01:19 Ativan Injection IVP 03/24/17 22:43 0.5 mg Q6H PRN Administration Anxiety, Unable to Take PO Lorazepam 1 mg 10/08/16 04:30 10/08/16 04:29 Ativan PO 10/08/16 04:31 1 mg ONCE ONE Administration Methylprednisolone Sodium Succinate 30 mg 09/24/16 11:53 09/24/16 12:26 Solu-Medrol IVP 09/24/16 11:54 30 mg Q12 STA Administration Methylprednisolone Sodium Succinate 30 mg 09/24/16 21:00 09/25/16 08:49 Solu-Medrol IVP 03/23/17 20:59 30 mg Q12 LISSET Administration Methylprednisolone Sodium Succinate 20 mg 09/25/16 10:09 09/26/16 12:00 Solu-Medrol IVP 03/23/17 20:59 20 mg Q12 LISSET Administration Pantoprazole Sodium 40 mg 09/27/16 09:00 Protonix PO 03/26/17 08:59 DAILY LISSET Pantoprazole Sodium 40 mg 09/28/16 09:00 09/29/16 09:04 Protonix PO 03/27/17 08:59 40 mg DAILY LISSET Administration Potassium Chloride 1 dose 09/22/16 19:26 Protocol Potassium MISC 03/21/17 19:25 AD PRN Pt on Electrolyte Protocol Protocol Potassium Chloride 30 meq 09/22/16 20:52 09/22/16 21:03 Klor-Con PO 09/22/16 20:53 30 meq ONCE ONE Administration Protocol Potassium Chloride 10 meq 09/27/16 21:13 09/27/16 21:58 Klor-Con PO 09/27/16 21:14 10 meq ONCE ONE Administration Protocol Physical Exam - Physical Exam General Appearance: alert, no apparent distress Respiratory: lungs clear, normal breath sounds, decreased breath sounds (at bases) Cardiac/Chest: regular rate, rhythm Abdomen: non-tender, soft, other (hypoactive BS) Skin: normal color, warm/dry Neuro/Psych: no motor/sensory deficits, alert, normal mood/affect, oriented x 3 ICD10 Worksheet Patient Problems: Problems Problem Status Onset Pancreatitis Acute
[2016-10-10 11:19] LABS: ALBUMIN 2.1 g/dL (3.5-5.0); BILIRUBIN,TOTAL 0.9 mg/dL (0.1-1.4); BILIRUBIN-CONJUGATED 0.7 mg/dL (0.0-0.5); BILIRUBIN-UNCONJUGATED 0.2 mg/dL (0.0-1.1); TOTAL PROTEIN 5.6 g/dL (6.3-8.2)
[2016-10-10] MEDS: CREON 24 CAP PO SCH ×2 (12:25→17:52)
[2016-10-10] MEDS: ONDANSETRON 4 MG/2 ML VIAL IVP PRN (15:46)
--- NOTE | 2016-10-10 16:41 | HOSPPROG ---
Hospitalist Progress Note Assessment/Plan: #Acute encephalopathy: resolved. Stopped several opioids and Ativan. #Acute severe pancreatitis: s/p liver biopsy. MRI showed pseudocyst, no abscess. Too small for drainage. -clear diet today, add Creon #Autoimmune hepatitis/cholangitis: ursodial #Normocytic anemia: denies bleeding. H/H trending down. Transfused 1 unit 10/08. #Abdominal pain: showed pseudocyst, too small to drain. Monitor closely #Depression: restart Zoloft at lower dose since been off it #ARF: Cr stable. Suspect ATN. No further HD planned at this time #Hepatitis C: per review, does not have this diagnosis #Leukocytosis: resolved #Hypervolemic hyponatremia: improved with HD # SIRS/Sepsis: WBC trending down, cont abx for PNA #Severe deconditioning: PT/OT. She has been refusing PT; I emphasized that she must get out of bed and ambulate #Metabolic acidosis: resolved #Diet: clears, advance to low fat. DC TPN as soon as taking in good PO #DVT ppx: SQH #Disp: warrants inpt admission given pancreatitis, requiring IV abx, TPN #Goals: and son very upset stating that they have not been informed enough from medical team during stay, thus met with him along with SOHA, Patient advocate. I spoke with them extensively with them on Saturday and advised them to have me paged if any questions (they have not done since that meeting). -will plan on having Hospitalist team call daily at 3pm to keep open communication Time spent on visit: 75 min in which 60 min spent counseling pt and family on treatment and communication plan Subjective: patient feeling better today, walked the unit Objective: Vital Signs Temp Pulse Resp BP Pulse Ox 36.7 C 79 22 H 160/71 H 89 L 10/10/16 16:00 10/10/16 16:00 10/10/16 16:00 10/10/16 16:00 10/10/16 16:00 Laboratory Results 10/09/16 05:20 10/10/16 04:40 10/09/16 10/10/16 10/11/16 05:59 05:59 05:59 Intake Total 1698 891 620 Output Total 3650 1200 950 Balance -1952 -309 -330 PT 15.2 SEC (12.0-15.0) H 10/08/16 04:45 INR 1.20 (0.83-1.16) H 10/08/16 04:45 - Physical Exam Constitutional: obese, other (appears brighter today) Eyes: PERRL Ears, Nose, Mouth, Throat: moist mucous membranes, hearing normal Cardiovascular: regular rate and rhythym, no murmur, rub, or gallop Respiratory: no respiratory distress, no rales or rhonchi Gastrointestinal: normoactive bowel sounds, tenderness (mild epigastric TTP) Genitourinary: no bladder fullness Skin: warm Musculoskeletal: generalized weakness, other (dialysis catheter right chest, C/D /I) Neurologic: AAOx3 Psychiatric: interacting appropriately ICD10 Worksheet Patient Problems: Problems Problem Status Onset Pancreatitis Acute
[2016-10-10] MEDS: PANTOPRAZOLE SODIUM 40 MG in NS 100 ML IV SCH (17:45)
--- NOTE | 2016-10-10 17:56 | SOAPPROG ---
SOAP Progress Note Assessment/Plan: Assessment: ANISH, rate of rise of creat slowing acute pancreatitis, still with belly pain Plan: no urgent HD needs follow lytes vol and renal function pain control 10/10/16 17:54 Objective: Vital Signs Temp Pulse Resp BP Pulse Ox 36.7 C 70 12 160/71 H 94 10/10/16 16:00 10/10/16 16:38 10/10/16 16:38 10/10/16 16:00 10/10/16 16:38 Laboratory Results 10/09/16 05:20 10/10/16 04:40 10/09/16 10/10/16 10/11/16 05:59 05:59 05:59 Intake Total 1698 891 620 Output Total 3650 1200 950 Balance -1952 -309 -330 PT 15.2 SEC (12.0-15.0) H 10/08/16 04:45 INR 1.20 (0.83-1.16) H 10/08/16 04:45 Physical Exam - Physical Exam General Appearance: alert Respiratory: No rhonchi, No wheezing Cardiac/Chest: regular rate, rhythm, edema, No gallop, No friction rub Abdomen: other (bs+, tender, mild distended) Extremities: pedal edema Neuro/Psych: alert, oriented x 3 ICD10 Worksheet Patient Problems: Problems Problem Status Onset Pancreatitis Acute
[2016-10-10] MEDS: MELATONIN 3 MG TAB PO SCH (21:54)
[2016-10-10] MEDS: TPN 1 EA BAG IV SCH (21:55)
[2016-10-11] MEDS: IPRATROPIUM/ALBUTEROL 3 ML DEYVIAL IH SCH ×3 (05:42→17:24)
[2016-10-11] MEDS: INSULIN REGULAR, HUMAN 100 UNIT/1 ML VIAL HIGH SC SCH ×4 (06:17→23:08)
[2016-10-11] MEDS: HEPARIN 5,000 UNIT/0.5 ML SYR SC SCH ×3 (06:18→20:49)
[2016-10-11 06:50] LABS: ANION GAP 12 mEq/L (8-16); CALCIUM 8.9 mg/dL (8.5-10.4); CARBON DIOXIDE 20 mEq/l (22-31); CHLORIDE 106 mEq/L (97-110); CREATININE 3.6 mg/dL (0.6-1.0); GLOMERULAR FILTRATION RATE 13; GLUCOSE 149 mg/dL (70-100); POTASSIUM 3.3 mEq/L (3.5-5.2); SODIUM 138 mEq/L (134-144)
[2016-10-11] MEDS ORDERED: POTASSIUM CL 20 MEQ TAB PO ONE (08:14)
[2016-10-11] MEDS: CREON 24 CAP PO SCH ×3 (09:52→20:05)
[2016-10-11] MEDS: SERTRALINE HCL 25 MG TAB PO SCH (09:54)
[2016-10-11] MEDS: URSODIOL 300 MG CAP PO SCH ×2 (09:54→20:04)
[2016-10-11] MEDS: OXYMETAZOLINE 30 ML NASAL SPRAY EACHNARE SCH ×2 (09:58→20:05)
[2016-10-11 10:23] LABS: HEMATOCRIT 24.3 % (38.0-47.0); HEMOGLOBIN 8.3 g/dL (12.6-16.3)
--- NOTE | 2016-10-11 11:07 | SOAPPROG ---
SOAP Progress Note Assessment/Plan: Assessment:Plan: ARF-Stable off dialysis -creatinine down to 3.6 -good UO -dialysis catheter removed -lasix prn Low potassium-PO replacement given 10/11/16 11:05 Subjective: no new complaints Objective: Vital Signs Temp Pulse Resp BP Pulse Ox 36.7 C 79 18 157/78 H 98 10/11/16 08:00 10/11/16 08:00 10/11/16 08:00 10/11/16 08:00 10/11/16 08:00 Laboratory Results 10/11/16 10:08 10/11/16 06:06 10/10/16 10/11/16 10/12/16 05:59 05:59 05:59 Intake Total 891 2110 Output Total 1200 1600 400 Balance -309 510 -400 PT 15.2 SEC (12.0-15.0) H 10/08/16 04:45 INR 1.20 (0.83-1.16) H 10/08/16 04:45 Physical Exam - Physical Exam General Appearance: alert, mild distress EENT: normal ENT inspection Neck: normal inspection Respiratory: decreased breath sounds (at bases) Cardiac/Chest: regular rate, rhythm, No diastolic murmur, No systolic murmur Abdomen: normal bowel sounds, non-tender Extremities: swelling (2-3+ edema) ICD10 Worksheet Patient Problems: Problems Problem Status Onset Pancreatitis Acute
[2016-10-11] MEDS: HYDROmorphONE/DILAUDID 2 MG TAB PO PRN ×2 (13:02→20:05)
[2016-10-11 13:21] LABS: HCV QT RNA PCR < 1 IU/mL (<15)
--- NOTE | 2016-10-11 13:33 | SOAPPROG ---
SOAP Progress Note Assessment/Plan: Assessment: Patient taking in only liquids. Diet was not advanced. Patient very deconditioned. Resolving pancreatitis, with small pseudocyst Needs PT. Would like to advance diet and taper off of TPN. Plan: 1. Advance diet to low fat diet 2. Pancreatic Enzymes with meals 3. Patient needs to ambulate and have PT work with her 10/11/16 13:33 Subjective: CC: Pancreatitis. Taking in poor PO, only on liquids. Diet was not advanced. Objective: Vital Signs Temp Pulse Resp BP Pulse Ox 36 C 77 18 161/72 H 97 10/11/16 11:31 10/11/16 11:26 10/11/16 11:26 10/11/16 11:26 10/11/16 11:26 Laboratory Results 10/11/16 10:08 10/11/16 06:06 10/10/16 10/11/16 10/12/16 05:59 05:59 05:59 Intake Total 891 2110 Output Total 1200 1600 700 Balance -309 510 -700 PT 15.2 SEC (12.0-15.0) H 10/08/16 04:45 INR 1.20 (0.83-1.16) H 10/08/16 04:45 Generic Name Dose Route Start Last Admin Trade Name Freq PRN Reason Stop Dose Admin Albuterol/Ipratropium 3 ml 09/25/16 06:00 10/11/16 10:57 Duoneb IH 03/24/17 05:59 3 ml Q6HRS LISSET Administration Alteplase, Recombinant 2 mg 09/24/16 18:13 10/08/16 17:59 Cathflo Activase IVP 03/23/17 18:12 2 mg PRN PRN Administration Per PICC line policy Dextrose 25 gm 09/22/16 19:26 Dextrose 50% Syringe IVP 03/21/17 19:25 PRN PRN Hypoglycemia Heparin Sodium (Porcine) 5,000 unit 09/24/16 09:00 10/11/16 06:18 Heparin Sc Injection SC 03/23/17 08:59 5,000 unit 0600,1400,2200 LISSET Administration Hydralazine HCl 10 mg 10/08/16 16:25 Apresoline PO 04/06/17 16:24 Q8H PRN hypertension Hydromorphone HCl 1 - 2 mg 10/08/16 16:41 10/11/16 13:02 Dilaudid PO 10/18/16 16:40 0.5 mg Q8H PRN Administration Pain, Severe Able to Take PO Dextrose 1,000 mls @ 0 mls/hr 09/29/16 10:56 D10w IV 03/28/17 10:55 PRN PRN TPN interruption As Directed Pantoprazole Sodium 40 mg/ 100 mls @ 200 mls/hr 10/05/16 18:00 10/10/16 17:45 Sodium Chloride IV 04/03/17 17:59 100 mls DAILY18 LISSET Administration Insulin Human Regular 4 - 20 unit 10/01/16 08:30 10/11/16 12:31 Humulin R SC 03/30/17 08:29 4 units Q6 LISSET Administration Protocol Lactulose 20 gm 10/09/16 10:37 Cephulac PO 04/07/17 15:59 TID PRN Constipation Lipase/Amylase/Pancrelipase/Proteas 1 cap 10/10/16 12:00 10/11/16 09:52 Creon 24 PO 04/08/17 11:59 1 cap TIDMEAL LISSET Administration Melatonin 3 mg 10/08/16 21:00 10/10/16 21:54 Melatonin PO 04/06/17 20:59 3 mg HS LISSET Administration Naloxone HCl 0 mg 09/22/16 19:59 Narcan IVP 03/21/17 19:58 PRN PRN Respiratory depression Protocol Ondansetron HCl 4 mg 09/22/16 19:24 10/10/16 15:46 Zofran IVP 03/21/17 19:23 4 mg Q4 PRN Administration Nausea/Vomiting, Can't Take PO Oxymetazoline HCl 2 sprays 09/30/16 10:30 10/11/16 09:58 Afrin Nasal [place] 03/29/17 10:29 2 sprays BID LISSET Administration Promethazine HCl 6.25 mg 09/22/16 19:24 Phenergan IVP 03/21/17 19:23 Q6 PRN Nausea/Vomiting, Can't Take PO Sertraline HCl 25 mg 10/09/16 09:00 10/11/16 09:54 Zoloft PO 04/07/17 08:59 25 mg DAILY LISSET Administration Throat Lozenges 1 ea 09/26/16 18:09 Cepacol Lozenge PO 03/25/17 18:08 PRN PRN Sore Throat Total Parenteral Nutrition 1 ea 09/29/16 11:00 Pharmacy To DoseTpn MISC 03/28/17 10:59 AD LISSET Total Parenteral Nutrition 1 ea 09/29/16 21:00 10/10/16 21:55 Hyperalimentation IV 03/28/17 20:59 1 ea DAILY21 LISSET Administration Ursodiol 300 mg 09/22/16 21:00 10/10/16 21:54 Actigall PO 03/21/17 20:59 300 mg HS LISSET Administration Ursodiol 600 mg 09/23/16 09:00 10/11/16 09:54 Actigall PO 03/22/17 08:59 600 mg DAILY LISSET Administration Discontinued Medications Generic Name Dose Route Start Last Admin Trade Name Freq PRN Reason Stop Dose Admin Acetaminophen 650 mg 09/22/16 19:24 Tylenol Rectal PA 03/21/17 19:23 Q4 PRN Pain, Mild/Fever,Can't Take PO Albuterol Confirm 09/25/16 01:21 Proventil Neb Administered 09/25/16 01:22 Dose 3 ml .ROUTE .STK-MED ONE Amlodipine Besylate 5 mg 10/08/16 16:30 Norvasc PO 04/06/17 16:29 DAILY LISSET Azathioprine 50 mg 09/23/16 09:00 09/24/16 09:32 Imuran PO 03/22/17 08:59 Not Given DAILY LISSET Calcium Gluconate 1 dose 09/24/16 07:05 Protocol Calcium IV 03/23/17 07:04 AD PRN Pt on Electrolyte Protocol Protocol Diphenhydramine HCl 25 mg 09/25/16 14:51 09/25/16 21:32 Benadryl PO 03/24/17 14:50 25 mg Q6HRS PRN Administration Itching Enoxaparin Sodium 40 mg 09/23/16 09:00 09/23/16 09:09 Lovenox SC 03/22/17 08:59 Not Given DAILY LISSET Furosemide 40 mg 10/05/16 10:52 10/05/16 11:20 Lasix Injection IVP 10/05/16 10:53 40 mg ONCE ONE Administration Gadobutrol Confirm 09/23/16 09:45 Gadavist 1 Mmol/Ml Administered 09/23/16 09:46 Dose 10 ml IVP .STK-MED ONE Heparin Sodium (Porcine) Confirm 09/25/16 09:50 Heparin Sodium Administered 09/25/16 09:51 Dose 50,000 unit .ROUTE .STK-MED ONE Heparin Sodium (Porcine) 50,000 unit 09/26/16 18:57 Heparin Sodium .ROUTE 09/26/16 18:58 .STK-MED ONE Heparin Sodium (Porcine) 50,000 unit 09/30/16 21:12 Heparin Sodium .ROUTE 09/30/16 21:13 .STK-MED ONE Heparin Sodium (Porcine) 50,000 unit 09/30/16 21:16 Heparin Sodium .ROUTE 09/30/16 21:17 .STK-MED ONE Heparin Sodium (Porcine) 50,000 unit 10/02/16 01:45 Heparin Sodium .ROUTE 10/02/16 01:46 .STK-MED ONE Heparin Sodium (Porcine) 50,000 unit 10/03/16 21:00 Heparin Sodium .ROUTE 10/03/16 21:01 .STK-MED ONE Heparin Sodium (Porcine) 50,000 unit 10/06/16 20:00 Heparin Sodium .ROUTE 10/06/16 20:01 .STK-MED ONE Hydromorphone HCl 0.2 - 0.4 mg 09/22/16 19:09 09/22/16 19:17 Dilaudid IVP 10/02/16 19:08 0.4 mg Q2HRS PRN Administration Pain, Severe Unable to Take PO Hydromorphone HCl 0.5 - 1 mg 09/22/16 19:24 Dilaudid IVP 10/02/16 19:23 Q2HRS PRN Pain, Severe Unable to Take PO Hydromorphone HCl 0 mg 09/22/16 19:59 09/30/16 19:47 Dilaudid Marketing Editor IV 10/02/16 19:58 6 mg PRN PRN Administration Pain, Severe Unable to Take PO Protocol Hydromorphone HCl 0 mg 10/01/16 10:58 10/01/16 17:22 Dilaudid Marketing Editor IV 10/11/16 10:57 6 mg PRN PRN Administration Pain, Severe Unable to Take PO Protocol Hydromorphone HCl 0.2 mg 10/03/16 16:46 10/07/16 23:05 Dilaudid IVP 10/13/16 16:45 0.2 mg Q2HRS PRN Administration Pain, Severe Unable to Take PO Sodium Chloride 1,000 mls @ 100 mls/hr 09/22/16 19:15 Ns IV 03/21/17 19:14 CONT LISSET Sodium Chloride 1,000 mls @ 0 mls/hr 09/22/16 19:02 09/22/16 19:46 Ns IV 09/22/16 19:03 1,000 mls ONCE ONE Administration Wide Open Famotidine/Sodium Chloride 50 mls @ 200 mls/hr 09/22/16 21:00 Pepcid 20 Mg (Premix) IV 03/21/17 20:59 Q12HRS LISSET Sodium Chloride 1,000 mls @ 100 mls/hr 09/22/16 19:30 09/26/16 20:38 Ns IV 03/21/17 19:29 1,000 mls CONT LISSET Administration Pantoprazole Sodium 40 mg/ 100 mls @ 200 mls/hr 09/23/16 09:00 09/26/16 14:39 Sodium Chloride IV 03/22/17 08:59 100 mls DAILY LISSET Administration Piperacillin/Tazobactam/Dextrose 50 mls @ 100 mls/hr 09/23/16 18:00 09/24/16 14:27 Zosyn 3.375 Gm (Premix) IV 10/23/16 17:59 50 mls Q6HRS LISSET Administration Protocol Calcium Gluconate 2 gm/ Sodium 70 mls @ 140 mls/hr 09/24/16 08:35 09/24/16 10 :52 Chloride IV 09/24/16 09:04 70 mls ONCE ONE Administration Sodium Chloride 1,000 mls @ 0 mls/hr 09/24/16 10:09 09/24/16 10:52 Ns IV 09/24/16 10:10 1,000 mls ONCE ONE Administration Wide Open Piperacillin/Tazobactam/Dextrose 50 mls @ 100 mls/hr 09/24/16 18:00 09/26/16 14:39 Zosyn 2.25 Gm (Premix) IV 10/24/16 17:59 50 mls Q6 LISSET Administration Calcium Gluconate 2 gm/ Sodium 70 mls @ 140 mls/hr 09/24/16 18:23 09/24/16 19 :29 Chloride IV 09/24/16 18:52 70 mls ONCE ONE Administration Calcium Gluconate 2 gm/ Sodium 70 mls @ 140 mls/hr 09/24/16 22:16 09/24/16 22 :41 Chloride IV 09/24/16 22:45 70 mls ONCE ONE Administration Calcium Gluconate 2 gm/ Sodium 70 mls @ 140 mls/hr 09/25/16 02:22 09/25/16 02 :44 Chloride IV 09/25/16 02:51 70 mls ONCE ONE Administration Calcium Gluconate 2 gm/ Sodium 70 mls @ 140 mls/hr 09/25/16 06:45 09/25/16 07 :31 Chloride IV 09/25/16 07:14 70 mls ONCE ONE Administration Calcium Gluconate 2 gm/ Sodium 70 mls @ 140 mls/hr 09/25/16 10:37 09/25/16 11 :34 Chloride IV 09/25/16 11:06 70 mls ONCE ONE Administration Calcium Gluconate 2 gm/ Sodium 70 mls @ 140 mls/hr 09/25/16 14:56 09/25/16 15 :20 Chloride IV 09/25/16 15:25 70 mls ONCE ONE Administration Calcium Gluconate 2 gm/ Sodium 70 mls @ 140 mls/hr 09/25/16 18:12 09/25/16 19 :29 Chloride IV 09/25/16 18:41 70 mls ONCE ONE Administration Sodium Chloride 500 mls @ 0 mls/hr 09/25/16 18:30 09/25/16 17:45 Ns IV 09/25/16 18:31 500 mls ONCE ONE Administration Wide Open Calcium Gluconate 2 gm/ Sodium 70 mls @ 140 mls/hr 09/25/16 22:27 09/25/16 22 :39 Chloride IV 09/25/16 22:56 70 mls ONCE ONE Administration Calcium Gluconate 2 gm/ Sodium 70 mls @ 140 mls/hr 09/26/16 02:26 09/26/16 02 :36 Chloride IV 09/26/16 02:55 70 mls ONCE ONE Administration Calcium Gluconate 2 gm/ Sodium 70 mls @ 140 mls/hr 09/26/16 07:10 09/26/16 13 :43 Chloride IV 09/26/16 07:39 70 mls ONCE ONE Administration Pantoprazole Sodium 40 mg/ 100 mls @ 200 mls/hr 09/26/16 21:00 09/27/16 08:26 Sodium Chloride IV 03/25/17 20:59 100 mls BID LISSET Administration Potassium Chloride 50 mls @ 50 mls/hr 09/26/16 21:19 09/27/16 05:44 Potassium Cl 10 Meq (Premix) IV 09/27/16 00:18 Not Given Q1H LISSET Calcium Gluconate 50 mls @ 100 mls/hr 09/26/16 21:23 09/27/16 00:26 Calcium Gluconate 1 Gm (Premix) IV 09/26/16 21:52 50 mls ONCE ONE Administration Calcium Gluconate 50 mls @ 100 mls/hr 09/27/16 07:08 09/27/16 07:56 Calcium Gluconate 1 Gm (Premix) IV 09/27/16 07:37 50 mls ONCE ONE Administration Potassium Chloride 50 mls @ 50 mls/hr 09/27/16 08:39 09/27/16 14:36 Potassium Cl 10 Meq (Premix) IV 09/27/16 11:38 Not Given Q1H LISSET Dexmedetomidine HCl 400 mcg/ 104 mls @ 0 mls/hr 09/27/16 18:30 09/29/16 22:18 Sodium Chloride IV 03/26/17 18:29 104 mls CONT LISSET Administration Protocol Titrate Calcium Gluconate 50 mls @ 100 mls/hr 09/27/16 21:00 09/27/16 20:39 Calcium Gluconate 1 Gm (Premix) IV 09/27/16 21:29 50 mls ONCE ONE Administration Calcium Gluconate 50 mls @ 100 mls/hr 09/28/16 04:30 09/28/16 04:42 Calcium Gluconate 1 Gm (Premix) IV 09/28/16 04:59 50 mls ONCE ONE Administration Calcium Gluconate 50 mls @ 100 mls/hr 09/28/16 07:46 09/28/16 10:43 Calcium Gluconate 1 Gm (Premix) IV 09/28/16 08:15 50 mls ONCE ONE Administration Calcium Gluconate 1 gm/ 60 mls @ 120 mls/hr 09/29/16 11:30 09/29/16 11:56 Dextrose IV 09/29/16 11:59 60 mls ONCE ONE Administration Calcium Gluconate 50 mls @ 100 mls/hr 09/29/16 12:00 09/29/16 11:45 Calcium Gluconate 1 Gm (Premix) IV 09/29/16 12:29 50 mls ONCE ONE Administration Pantoprazole Sodium 40 mg/ 100 mls @ 200 mls/hr 09/29/16 12:00 10/04/16 18:02 Sodium Chloride IV 03/28/17 11:59 100 mls DAILY LISSET Administration Potassium Chloride 50 mls @ 25 mls/hr 09/29/16 19:30 09/29/16 20:28 Potassium Cl 20 Meq (Premix) IV 09/29/16 21:29 50 mls ONCE ONE Administration Calcium Gluconate 50 mls @ 100 mls/hr 09/30/16 04:42 09/30/16 05:15 Calcium Gluconate 1 Gm (Premix) IV 09/30/16 05:11 50 mls ONCE ONE Administration Dexmedetomidine HCl 400 mcg/ 104 mls @ 0 mls/hr 09/30/16 10:58 09/30/16 21:38 Sodium Chloride IV 03/29/17 10:57 104 mls HS PRN Administration INSOMNIA Protocol Titrate Potassium Chloride 50 mls @ 25 mls/hr 09/30/16 22:12 09/30/16 22:51 Potassium Cl 20 Meq (Premix) IV 10/01/16 00:11 50 mls ONCE ONE Administration Cefepime HCl 1 gm/ Dextrose 50 mls @ 100 mls/hr 10/02/16 18:30 10/02/16 18:47 IV 10/02/16 18:59 50 mls ONCE ONE Administration Cefepime HCl 1 gm/ Dextrose 50 mls @ 100 mls/hr 10/03/16 09:00 10/03/16 11:05 IV 11/02/16 08:59 Not Given Q12HRS LISSET Protocol Cefepime HCl 1 gm/ Dextrose 50 mls @ 100 mls/hr 10/03/16 21:00 IV 11/02/16 20:59 Q12HRS LISSET Protocol Cefepime HCl 1 gm/ Dextrose 50 mls @ 100 mls/hr 10/03/16 17:00 10/09/16 17:00 IV 10/10/16 06:00 50 mls DAILY@1700 LISSET Administration Sodium Chloride 1,000 mls @ 0 mls/hr 10/03/16 13:00 Ns IV 04/01/17 12:59 CONT LISSET As Directed Calcium Gluconate 50 mls @ 100 mls/hr 10/04/16 21:59 10/04/16 22:36 Calcium Gluconate 1 Gm (Premix) IV 10/04/16 22:28 50 mls ONCE ONE Administration Insulin Human Regular 0 unit 09/22/16 21:00 09/29/16 09:03 Humulin R SC 03/21/17 20:59 2 units ACHS LISSET Administration Protocol Insulin Human Regular 0 unit 09/29/16 12:00 10/01/16 06:01 Humulin R SC 03/28/17 11:59 4 units Q6 LISSET Administration Protocol Iopamidol Confirm 09/22/16 16:13 Isovue-370 Administered 09/22/16 16:14 Dose 150 ml IV .STK-MED ONE Lidocaine HCl Confirm 09/25/16 09:50 Lidocaine Hcl 1% Administered 09/25/16 09:51 Dose 30 ml .ROUTE .STK-MED ONE Lorazepam 0.5 mg 09/25/16 22:44 10/08/16 01:19 Ativan Injection IVP 03/24/17 22:43 0.5 mg Q6H PRN Administration Anxiety, Unable to Take PO Lorazepam 1 mg 10/08/16 04:30 10/08/16 04:29 Ativan PO 10/08/16 04:31 1 mg ONCE ONE Administration Methylprednisolone Sodium Succinate 30 mg 09/24/16 11:53 09/24/16 12:26 Solu-Medrol IVP 09/24/16 11:54 30 mg Q12 STA Administration Methylprednisolone Sodium Succinate 30 mg 09/24/16 21:00 09/25/16 08:49 Solu-Medrol IVP 03/23/17 20:59 30 mg Q12 LISSET Administration Methylprednisolone Sodium Succinate 20 mg 09/25/16 10:09 09/26/16 12:00 Solu-Medrol IVP 03/23/17 20:59 20 mg Q12 LISSET Administration Pantoprazole Sodium 40 mg 09/27/16 09:00 Protonix PO 03/26/17 08:59 DAILY LISSET Pantoprazole Sodium 40 mg 09/28/16 09:00 09/29/16 09:04 Protonix PO 03/27/17 08:59 40 mg DAILY LISSET Administration Potassium Chloride 1 dose 09/22/16 19:26 Protocol Potassium MISC 03/21/17 19:25 AD PRN Pt on Electrolyte Protocol Protocol Potassium Chloride 30 meq 09/22/16 20:52 09/22/16 21:03 Klor-Con PO 09/22/16 20:53 30 meq ONCE ONE Administration Protocol Potassium Chloride 10 meq 09/27/16 21:13 09/27/16 21:58 Klor-Con PO 09/27/16 21:14 10 meq ONCE ONE Administration Protocol Potassium Chloride 40 meq 10/11/16 08:14 10/11/16 09:52 Klor-Con PO 10/11/16 08:15 40 meq ONCE ONE Administration Physical Exam - Physical Exam General Appearance: alert, no apparent distress Respiratory: lungs clear, normal breath sounds Cardiac/Chest: regular rate, rhythm Abdomen: normal bowel sounds, non-tender, soft Skin: normal color, warm/dry Neuro/Psych: no motor/sensory deficits, alert, normal mood/affect, oriented x 3 ICD10 Worksheet Patient Problems: Problems Problem Status Onset Pancreatitis Acute
--- NOTE | 2016-10-11 14:24 | HOSPPROG ---
Hospitalist Progress Note Assessment/Plan: #Acute encephalopathy: resolved. Stopped several opioids and Ativan. #Acute severe pancreatitis: s/p liver biopsy. MRI showed pseudocyst, no abscess. Too small for drainage. -clear diet today, add Creon #Hypokalemia: repleted today #Autoimmune hepatitis/cholangitis: ursodial #Normocytic anemia: Transfused 1 unit 10/08. #Abdominal pain: showed pseudocyst, too small to drain. Monitor closely #Depression: restart Zoloft at lower dose since been off it #ARF: Cr down to 3.6. No further HD planned at this time #Hepatitis C: per review, does not have this diagnosis #Leukocytosis: resolved #Hypervolemic hyponatremia: improved with HD # SIRS/Sepsis: WBC trending down #Severe deconditioning: PT/OT. She has been refusing PT; I emphasized that she must get out of bed and ambulate #Metabolic acidosis: resolved #Diet: Low-fat diet. DC TPN as soon as taking in good PO #DVT ppx: SQH #Disp: warrants inpt admission given pancreatitis, requiring IV abx, TPN #Goals: met with /son and pt rep. They want call daily for updates. Call Micheal [phone] Subjective: no acute events Objective: Vital Signs Temp Pulse Resp BP Pulse Ox 36 C 77 18 161/72 H 97 10/11/16 11:31 10/11/16 11:26 10/11/16 11:26 10/11/16 11:26 10/11/16 11:26 Laboratory Results 10/11/16 10:08 10/11/16 06:06 10/10/16 10/11/16 10/12/16 05:59 05:59 05:59 Intake Total 891 2110 240 Output Total 1200 1600 700 Balance -309 510 -460 PT 15.2 SEC (12.0-15.0) H 10/08/16 04:45 INR 1.20 (0.83-1.16) H 10/08/16 04:45 - Physical Exam Constitutional: chronically ill appearing Eyes: PERRL Ears, Nose, Mouth, Throat: moist mucous membranes, hearing normal Cardiovascular: regular rate and rhythym, no murmur, rub, or gallop Respiratory: no respiratory distress, no rales or rhonchi Gastrointestinal: normoactive bowel sounds, tenderness (mild in epigastrum) Skin: warm Musculoskeletal: full muscle strength ICD10 Worksheet Patient Problems: Problems Problem Status Onset Pancreatitis Acute
[2016-10-11] MEDS: amLODIPine BESYLATE 5 MG TAB PO SCH (15:40)
[2016-10-11 15:46] LABS: ANION GAP 10 mEq/L (8-16); CALCIUM 8.1 mg/dL (8.5-10.4); CARBON DIOXIDE 17 mEq/l (22-31); CHLORIDE 109 mEq/L (97-110); CREATININE 2.9 mg/dL (0.6-1.0); GLOMERULAR FILTRATION RATE 16; GLUCOSE 143 mg/dL (70-100); POTASSIUM 3.2 mEq/L (3.5-5.2); SODIUM 136 mEq/L (134-144)
[2016-10-11] MEDS: PANTOPRAZOLE SODIUM 40 MG in NS 100 ML IV SCH (18:02)
[2016-10-11] MEDS: MELATONIN 3 MG TAB PO SCH (20:05)
[2016-10-11] MEDS: TPN 1 EA BAG IV SCH (20:48)
[2016-10-11] MEDS: ONDANSETRON 4 MG/2 ML VIAL IVP PRN (20:48)
[2016-10-11] MEDS ORDERED: IPRATROPIUM/ALBUTEROL 3 ML DEYVIAL IH PRN (22:07)
[2016-10-12] MEDS: HYDROmorphONE/DILAUDID 2 MG TAB PO PRN ×2 (02:44→21:51)
[2016-10-12 05:35] LABS: IONIZED CALCIUM 1.32 MMOL/L (1.12-1.30)
[2016-10-12 05:38] LABS: HEMATOCRIT 23.8 % (38.0-47.0); HEMOGLOBIN 8.1 g/dL (12.6-16.3); MEAN CELL HEMOGLOBIN 30.3 pg (27.9-34.1); MEAN CELL VOLUME 89.1 fL (81.5-99.8); RED BLOOD CELL COUNT 2.67 10^6/uL (4.18-5.33); RED CELL DISTRIBUTION WIDTH 15.3 % (11.5-15.2)
[2016-10-12] MEDS: INSULIN REGULAR, HUMAN 100 UNIT/1 ML VIAL HIGH SC SCH ×3 (05:53→18:44)
[2016-10-12] MEDS: HEPARIN 5,000 UNIT/0.5 ML SYR SC SCH (05:53)
[2016-10-12 06:13] LABS: ANION GAP 10 mEq/L (8-16); CALCIUM 8.9 mg/dL (8.5-10.4); CARBON DIOXIDE 21 mEq/l (22-31); CHLORIDE 108 mEq/L (97-110); CREATININE 2.9 mg/dL (0.6-1.0); GLOMERULAR FILTRATION RATE 16; GLUCOSE 144 mg/dL (70-100); POTASSIUM 3.3 mEq/L (3.5-5.2); SODIUM 139 mEq/L (134-144)
[2016-10-12] MEDS: OXYMETAZOLINE 30 ML NASAL SPRAY EACHNARE SCH ×2 (08:52→21:56)
[2016-10-12] MEDS ORDERED: POTASSIUM CL 20 MEQ TAB PO SCH (09:00)
[2016-10-12] MEDS: amLODIPine BESYLATE 5 MG TAB PO SCH (09:02)
[2016-10-12] MEDS: SERTRALINE HCL 25 MG TAB PO SCH (09:02)
[2016-10-12] MEDS: URSODIOL 300 MG CAP PO SCH ×2 (09:03→21:51)
[2016-10-12] MEDS ORDERED: MAGNESIUM HYDROXIDE 30 ML UDCUP PO PRN (09:12)
[2016-10-12] MEDS ORDERED: BISACODYL 10 MG SUPP PR PRN (09:12)
[2016-10-12] MEDS: ONDANSETRON 4 MG/2 ML VIAL IVP PRN (10:29)
[2016-10-12] MEDS: CREON 24 CAP PO SCH ×3 (10:35→17:23)
--- NOTE | 2016-10-12 10:35 | HOSPPROG ---
Hospitalist Progress Note Assessment/Plan: #Acute encephalopathy: resolved, improved with discontinuation of opiates and bzds. avoid sedating meds. #Acute severe pancreatitis: s/p liver biopsy. MRI showed pseudocyst, no abscess. Too small for drainage. GI following. -advance to low fat diet as tolerated, wean TPN as able, cont Creon #Hypokalemia: cont to replace, follow #Autoimmune hepatitis/cholangitis: ursodial #Normocytic anemia: Transfused 1 unit 10/08. #Depression: restarted Zoloft at lower dose since she's been off it #ARF: Cr down to 2.9. No further HD planned at this time, Nephrology following #Hepatitis C: per her primary GI doc, she does not have this diagnosis #Hypervolemic hyponatremia: improved with HD #SIRS/Sepsis: WBC trending down #Severe deconditioning: PT/OT. She has been refusing PT; I again emphasized that she must get out of bed and ambulate #Metabolic acidosis: improving #Diet: Low-fat diet. DC TPN when po intake improved #Epistaxis: resolved with pressure, hold heparin today #DVT ppx: SQH #Disp: cont inpt #Goals: met with /son and pt rep. They want call daily for updates. Call Micheal [phone] Subjective: Pt complained of a headache this am. Had a nosebleed this am, resolved with pressure. Little po intake, feels a bit nauseous, some abdominal pain. No vomiting. No fevers. No CP or SOB. Objective: Vital Signs Temp Pulse Resp BP Pulse Ox 36.6 C 79 18 159/75 H 93 10/12/16 08:00 10/12/16 08:00 10/12/16 08:00 10/12/16 09:02 10/12/16 08:00 Laboratory Results 10/12/16 05:27 10/12/16 05:27 10/11/16 10/12/16 10/13/16 05:59 05:59 05:59 Intake Total 2110 540 400 Output Total 1600 2550 500 Balance PT 15.2 SEC (12.0-15.0) H 10/08/16 04:45 INR 1.20 (0.83-1.16) H 10/08/16 04:45 - Physical Exam Constitutional: no apparent distress Eyes: PERRL Ears, Nose, Mouth, Throat: moist mucous membranes Cardiovascular: regular rate and rhythym Respiratory: no respiratory distress, clear to auscultation Gastrointestinal: normoactive bowel sounds, other (soft, mild tenderness, no r/r /g, +BS) Skin: warm Musculoskeletal: full muscle strength Neurologic: AAOx3 Psychiatric: interacting appropriately ICD10 Worksheet Patient Problems: Problems Problem Status Onset Pancreatitis Acute - ICD10 Problem Qualifiers (1) Pancreatitis Qualifiers: Chronicity: acute Pancreatitis type: unspecified pancreatitis type Acute pancreatitis complication: A
[2016-10-12] MEDS ORDERED: PROMETHAZINE HCL 25 MG TAB PO PRN (11:18)
--- NOTE | 2016-10-12 12:16 | SOAPPROG ---
SOAP Progress Note Assessment/Plan: Assessment/Plan: ANISH: pt with oliguric ANISH in setting of pancreatitis, likely has ATN. She is no longer oliguric, has good UOP and Cr downtrending, off HD. - Will continue to monitor her renal recovery. - No further need of HD anticipated. - Avoid MOM, morphine, demerol, NSAIDs, contrast, aminoglycosides, fleets, and other nephrotoxins. Hypervolemia: improved with HD, pt with good UOP now, will continue to monitor. Hypokalemia: replacing today, will continue to monitor. Subjective: No acute events overnight. Pt states she is having some nausea and headache this am. She had good UOP overnight. Objective: Vital Signs Temp Pulse Resp BP Pulse Ox 36.6 C 81 20 168/73 H 94 10/12/16 11:13 10/12/16 11:13 10/12/16 11:13 10/12/16 11:13 10/12/16 11:13 Laboratory Results 10/12/16 05:27 10/12/16 05:27 10/11/16 10/12/16 10/13/16 05:59 05:59 05:59 Intake Total 2110 540 400 Output Total 1600 2550 500 Balance 510 -2009 - PT 15.2 SEC (12.0-15.0) H 10/08/16 04:45 INR 1.20 (0.83-1.16) H 10/08/16 04:45 General: alert and oriented, no acute distress Eyes: EOMI, PERRL OP: Clear CV: RRR Resp: nonlabored repsiraitons Abd: Soft, ND Ext: +1 edema BLE Neuro: CN II-XII grossly intact, no asterixis Psych: cooperative, appropriate mood and affect ICD10 Worksheet Patient Problems: Problems Problem Status Onset Pancreatitis Acute
--- NOTE | 2016-10-12 14:31 | SOAPPROG ---
SOAP Progress Note Assessment/Plan: Assessment:Plan: 10/02/16 13 1) pancreatitis - resolved but pt very slow to fully improve, try to advance diet, stop TPN, panc enzymes 2) activity - needs to ambulate and get out of bed as much as possible, OT and PT I will sign off please recall if needed thank you Vasu Singh M.D. 10/12/16 14:32 Subjective: cc- pancreatitis pt not c/o abdo pain, was sleeping no n/v Objective: Vital Signs Temp Pulse Resp BP Pulse Ox 36.6 C 81 20 168/73 H 94 10/12/16 11:13 10/12/16 11:13 10/12/16 11:13 10/12/16 11:13 10/12/16 11:13 Laboratory Results 10/12/16 05:27 10/12/16 05:27 10/11/16 10/12/16 10/13/16 05:59 05:59 05:59 Intake Total 2110 540 400 Output Total 1600 2550 1000 Balance 510 -2010 -600 PT 15.2 SEC (12.0-15.0) H 10/08/16 04:45 INR 1.20 (0.83-1.16) H 10/08/16 04:45 A+Ox3 CTA anteriorly S1S2 +BS, soft NT ICD10 Worksheet Patient Problems: Problems Problem Status Onset Pancreatitis Acute
[2016-10-12] MEDS: POTASSIUM CL 20 MEQ TAB PO SCH ×2 (17:21→21:52)
[2016-10-12] MEDS: PANTOPRAZOLE SODIUM 40 MG in NS 100 ML IV SCH (17:22)
[2016-10-12] MEDS: MELATONIN 3 MG TAB PO SCH (21:52)
[2016-10-12] MEDS: SENNOSIDES/DOCUSATE SODIUM TAB PO SCH (21:52)
[2016-10-12] MEDS: TPN 1 EA BAG IV SCH (21:53)
[2016-10-13] MEDS: INSULIN REGULAR, HUMAN 100 UNIT/1 ML VIAL HIGH SC SCH ×4 (00:41→17:54)
[2016-10-13 05:44] LABS: ADD DIFF? YES; ADD MORPH? NO; ADD SCAN? NO; ATYPICAL LYMPHOCYTE FLAG 20 (0-99); FRAGMENT RBC FLAG 0 (0-99); HEMATOCRIT 24.5 % (38.0-47.0); HEMOGLOBIN 8.2 g/dL (12.6-16.3); LEFT SHIFT FLG 60 (0-99); LIPEMIA HEMOLYSIS FLAG 80 (0-99); MEAN CELL HEMOGLOBIN 30.8 pg (27.9-34.1); MEAN CELL HEMOGLOBIN CONCENTR. 33.5 g/dL (32.4-36.7); MEAN CELL VOLUME 92.1 fL (81.5-99.8); MEAN PLATELET VOLUME 8.9 fL (8.7-11.7); PLATELET CLUMPS FLAG 0 (0-99); PLATELET COUNT 252 10^3/uL (150-400); RED BLOOD CELL COUNT 2.66 10^6/uL (4.18-5.33); RED CELL DISTRIBUTION WIDTH 15.4 % (11.5-15.2)
[2016-10-13 05:53] LABS: IONIZED CALCIUM 1.38 MMOL/L (1.12-1.30)
[2016-10-13 06:58] LABS: ANION GAP 12 mEq/L (8-16); CALCIUM 9.2 mg/dL (8.5-10.4); CARBON DIOXIDE 20 mEq/l (22-31); CHLORIDE 111 mEq/L (97-110); CREATININE 2.4 mg/dL (0.6-1.0); GLOMERULAR FILTRATION RATE 20; GLUCOSE 101 mg/dL (70-100); POTASSIUM 3.4 mEq/L (3.5-5.2); SODIUM 143 mEq/L (134-144)
[2016-10-13 07:50] LABS: PLATELET ESTIMATE ADEQUATE (ADEQ); POLYCHROMASIA 1+
--- NOTE | 2016-10-13 09:44 | SOAPPROG ---
SOAP Progress Note Assessment/Plan: Assessment/Plan: ANISH: pt with oliguric ANISH in setting of pancreatitis, likely has ATN. She is no longer oliguric, has good UOP and Cr downtrending to 2.4 today, off HD. - Will continue to monitor her renal recovery. - No further need of HD anticipated. - Avoid MOM, morphine, demerol, NSAIDs, contrast, aminoglycosides, fleets, and other nephrotoxins. Hypervolemia: improved with HD, pt with good UOP now, will continue to monitor. Hypokalemia: replacing today, will continue to monitor. HTN: not at goal, will increase amlodipine today. Subjective: No acute events overnight. Pt with good UOP, feeling tired but no other complaints this am. Objective: Vital Signs Temp Pulse Resp BP Pulse Ox 36.5 C 79 18 163/78 H 95 10/13/16 04:00 10/13/16 07:48 10/13/16 07:48 10/13/16 07:48 10/13/16 07:48 Laboratory Results 10/13/16 05:15 10/13/16 05:15 10/12/16 10/13/16 10/14/16 05:59 05:59 05:59 Intake Total 540 671 Output Total 2550 2150 Balance -2009 PT 15.2 SEC (12.0-15.0) H 10/08/16 04:45 INR 1.20 (0.83-1.16) H 10/08/16 04:45 General: alert and oriented, no acute distress Eyes; EOMI, PERRL OP: Clear CV: RRR Resp: nonlabored respirations on RA Abd; Soft, NT Ext: trace edema BLE Neuro: CN II-XII grossly intact, no asterixis Psych: cooperative, appropriate mood and affect ICD10 Worksheet Patient Problems: Problems Problem Status Onset Pancreatitis Acute
[2016-10-13] MEDS: amLODIPine BESYLATE 5 MG TAB PO SCH (10:01)
[2016-10-13] MEDS: URSODIOL 300 MG CAP PO SCH ×2 (10:01→20:16)
[2016-10-13] MEDS: SERTRALINE HCL 25 MG TAB PO SCH (10:01)
[2016-10-13] MEDS: POTASSIUM CL 20 MEQ TAB PO SCH ×4 (10:01→23:41)
[2016-10-13] MEDS: SENNOSIDES/DOCUSATE SODIUM TAB PO SCH ×2 (10:01→20:19)
[2016-10-13] MEDS: CREON 24 CAP PO SCH ×3 (10:01→17:33)
[2016-10-13] MEDS: OXYMETAZOLINE 30 ML NASAL SPRAY EACHNARE SCH ×2 (10:04→20:15)
--- NOTE | 2016-10-13 10:27 | HOSPPROG ---
Hospitalist Progress Note Assessment/Plan: #Acute encephalopathy: resolved, improved with discontinuation of opiates and bzds. avoid sedating meds. #Acute severe pancreatitis: s/p liver biopsy. MRI showed pseudocyst, no abscess. Too small for drainage. Taking po now. Discussed weaning TPN, pharmacy to dose at 1/2 dose today and plan to dc tomorrow. Cont low fat diet as tolerated, Creon. #Hypokalemia: cont to replace, follow #Autoimmune hepatitis/cholangitis: ursodiol #Normocytic anemia: Transfused 1 unit 10/08. Hgb stable. #Depression: restarted Zoloft at lower dose since she's been off it #ARF: Cr continues to trend down to 2.6. UOP improved. No further HD planned at this time, Nephrology following. Avoid nephrotoxic agents. #Hypervolemic hyponatremia: improved with HD #SIRS/Sepsis: WBC trending down, VSS. #Severe deconditioning: PT/OT. She has been refusing PT; I again emphasized that she must get out of bed and ambulate #Metabolic acidosis: improving #Diet: Low-fat diet. Wean TPN off over next 24-48 hrs. #Epistaxis: occured yesterday, resolved with pressure, held heparin yesterday. Will resume today and watch closely for any signs of bleeding. #DVT ppx: SQH #Disp: cont inpt #Goals: met with /son and pt rep. They want call daily for updates. Call Micheal [phone] Subjective: Pt feels better today, no more awan. No more nosebleed. She is eating breakfast, tolerates smoothies the best. No fevers. Still some abdominal pain, though not worse. She is reluctant to ambulate. Objective: Vital Signs Temp Pulse Resp BP Pulse Ox 36.5 C 79 18 163/78 H 95 10/13/16 04:00 10/13/16 07:48 10/13/16 07:48 10/13/16 07:48 10/13/16 07:48 Laboratory Results 10/13/16 05:15 10/13/16 05:15 10/12/16 10/13/16 10/14/16 05:59 05:59 05:59 Intake Total 540 671 Output Total 3190 2150 700 Balance -2009 -1479 -700 PT 15.2 SEC (12.0-15.0) H 10/08/16 04:45 INR 1.20 (0.83-1.16) H 10/08/16 04:45 - Physical Exam Constitutional: no apparent distress Eyes: PERRL Ears, Nose, Mouth, Throat: moist mucous membranes Cardiovascular: regular rate and rhythym, no murmur, rub, or gallop Respiratory: no respiratory distress, clear to auscultation Gastrointestinal: normoactive bowel sounds, other (soft, nd, some epigastric TTP , no r/r/g, +BS) Skin: warm Musculoskeletal: full muscle strength Neurologic: AAOx3 Psychiatric: interacting appropriately ICD10 Worksheet Patient Problems: Problems Problem Status Onset Pancreatitis Acute - ICD10 Problem Qualifiers (1) Pancreatitis Qualifiers: Chronicity: acute Pancreatitis type: unspecified pancreatitis type Acute pancreatitis complication: A
[2016-10-13] MEDS: HYDROmorphONE/DILAUDID 2 MG TAB PO PRN ×2 (11:47→18:28)
[2016-10-13] MEDS: PANTOPRAZOLE SODIUM 40 MG TAB PO SCH (12:11)
[2016-10-13] MEDS: HEPARIN 5,000 UNIT/0.5 ML SYR SC SCH ×2 (16:13→23:28)
[2016-10-13] MEDS: MELATONIN 3 MG TAB PO SCH (20:16)
[2016-10-13] MEDS ORDERED: POTASSIUM CL 20 MEQ TAB PO ONE (23:00)
[2016-10-14 04:38] LABS: IONIZED CALCIUM 1.26 MMOL/L (1.12-1.30)
[2016-10-14 05:09] LABS: ANION GAP 10 mEq/L (8-16); CARBON DIOXIDE 19 mEq/l (22-31); CHLORIDE 109 mEq/L (97-110); CREATININE 1.7 mg/dL (0.6-1.0); GLOMERULAR FILTRATION RATE 30; GLUCOSE 195 mg/dL (70-100); POTASSIUM 3.8 mEq/L (3.5-5.2); SODIUM 138 mEq/L (134-144)
[2016-10-14] MEDS: HEPARIN 5,000 UNIT/0.5 ML SYR SC SCH ×2 (06:21→16:16)
[2016-10-14] MEDS ORDERED: SERTRALINE HCL 25 MG TAB PO SCH (08:26)
--- NOTE | 2016-10-14 08:28 | HOSPPROG ---
Hospitalist Progress Note Assessment/Plan: #Acute encephalopathy: resolved, improved with discontinuation of opiates and bzds. avoid sedating meds. #Acute severe pancreatitis: s/p liver biopsy. MRI showed pseudocyst, no abscess. Too small for drainage. Taking po now. Off TPN. Cont low fat diet, Creon. #Hypertension: Norvasc increased yesterday. Lisinopril held due to ANISH. Monitor. #Hypokalemia: resolved #Autoimmune hepatitis/cholangitis: ursodiol #Normocytic anemia: Transfused 1 unit 10/08. Hgb stable. #Depression: increase Zoloft back to home dose #ARF: Likely ATN / hypoperfusion. Improving. Cr continues to trend down, now 1.7. UOP improved. No further HD planned at this time, Nephrology following. Avoid nephrotoxic agents. #Hypervolemic hyponatremia: improved with HD #SIRS/Sepsis: WBC trending down, VSS. #Severe deconditioning: PT/OT. She has been refusing PT; I again emphasized that she must get out of bed and ambulate #Metabolic acidosis: improving #Diet: Low-fat diet. Off TPN today. #Epistaxis: occurred 2 days ago, none since, back on heparin pplx #DVT ppx: SQH #Disp: cont inpt #Goals: met with /son and pt rep. They want call daily for updates. Call Micheal [phone] Subjective: PT feels well. Wants to go home tomorrow. Taking better po, ambulating frequently. No fevers. Less abdominal pain. Objective: Vital Signs Temp Pulse Resp BP Pulse Ox 36.9 C 82 16 163/90 H 96 10/14/16 08:00 10/14/16 08:00 10/14/16 08:00 10/14/16 08:00 10/14/16 08:00 Laboratory Results 10/13/16 05:15 10/14/16 04:30 10/13/16 10/14/16 10/15/16 05:59 05:59 05:59 Intake Total 671 831 Output Total 2150 2300 400 Balance -1479 -1469 -400 PT 15.2 SEC (12.0-15.0) H 10/08/16 04:45 INR 1.20 (0.83-1.16) H 10/08/16 04:45 - Physical Exam Constitutional: no apparent distress Eyes: PERRL Ears, Nose, Mouth, Throat: moist mucous membranes Cardiovascular: regular rate and rhythym, no murmur, rub, or gallop Respiratory: no respiratory distress, clear to auscultation Gastrointestinal: normoactive bowel sounds, soft, non-tender abdomen Skin: warm Musculoskeletal: full muscle strength Neurologic: AAOx3 Psychiatric: interacting appropriately ICD10 Worksheet Patient Problems: Problems Problem Status Onset Pancreatitis Acute - ICD10 Problem Qualifiers (1) Pancreatitis Qualifiers: Chronicity: acute Pancreatitis type: unspecified pancreatitis type Acute pancreatitis complication: A
[2016-10-14] MEDS: HYDROmorphONE/DILAUDID 2 MG TAB PO PRN ×2 (08:46→18:05)
[2016-10-14] MEDS: CREON 24 CAP PO SCH ×3 (08:47→17:42)
[2016-10-14] MEDS: SERTRALINE HCL 50 MG TAB PO SCH (08:47)
[2016-10-14] MEDS: amLODIPine BESYLATE 5 MG TAB PO SCH (08:47)
[2016-10-14] MEDS: PANTOPRAZOLE SODIUM 40 MG TAB PO SCH (08:48)
[2016-10-14] MEDS: URSODIOL 300 MG CAP PO SCH ×2 (08:49→20:53)
[2016-10-14] MEDS: OXYMETAZOLINE 30 ML NASAL SPRAY EACHNARE SCH (08:49)
[2016-10-14] MEDS ORDERED: POTASSIUM CL 10 MEQ TAB PO ONE (09:49)
[2016-10-14] MEDS: SENNOSIDES/DOCUSATE SODIUM TAB PO SCH ×2 (09:50→20:53)
[2016-10-14] MEDS ORDERED: POTASSIUM CL 20 MEQ TAB PO ONE ×2 (10:43→15:00)
--- NOTE | 2016-10-14 10:46 | SOAPPROG ---
SOAP Progress Note Assessment/Plan: Assessment/Plan: ANISH: pt with oliguric ANISH in setting of pancreatitis, likely has ATN. She is no longer oliguric, has good UOP and Cr downtrending to 1.7 today, off HD. - Will continue to monitor her renal recovery. - No further need of HD anticipated. - Avoid MOM, morphine, demerol, NSAIDs, contrast, aminoglycosides, fleets, and other nephrotoxins. Hypervolemia: improved with HD, pt with good UOP now, will continue to monitor. Hypokalemia: improved with replacement, will give [id number] po x1 today. Subjective: No acute events overnight. Pt feels tired, did not sleep well overnight. She states that she is hoping to go home soon. Objective: Vital Signs Temp Pulse Resp BP Pulse Ox 36.9 C 82 16 163/90 H 96 10/14/16 08:00 10/14/16 08:00 10/14/16 08:00 10/14/16 08:00 10/14/16 08:00 Laboratory Results 10/13/16 05:15 10/14/16 04:30 10/13/16 10/14/16 10/15/16 05:59 05:59 05:59 Intake Total 671 831 Output Total 2150 2300 400 Balance -1479 -1469 -400 PT 15.2 SEC (12.0-15.0) H 10/08/16 04:45 INR 1.20 (0.83-1.16) H 10/08/16 04:45 General: alert and oriented, no acute distress Eyes; EOMI, PERRL OP: Clear CV: RRR Resp: nonlabored respirations on NC Abd: soft, NT Ext: +1 edema BLE Neuro; CN II-XII grossly intact, no asterixis Psych: cooperative, appropriate mood and affect ICD10 Worksheet Patient Problems: Problems Problem Status Onset Pancreatitis Acute
[2016-10-14] MEDS: MELATONIN 3 MG TAB PO SCH (20:53)
[2016-10-15] MEDS: OXYMETAZOLINE 30 ML NASAL SPRAY EACHNARE SCH ×2 (00:54→11:40)
[2016-10-15 03:28] LABS: HEMOGLOBIN A1C 6.6 % (4.0-6.0)
[2016-10-15 04:35] VITALS: BP 153/76; O2SAT 98
[2016-10-15 06:08] LABS: ANION GAP 9 mEq/L (8-16); CALCIUM 8.8 mg/dL (8.5-10.4); CARBON DIOXIDE 24 mEq/l (22-31); CHLORIDE 107 mEq/L (97-110); CREATININE 1.4 mg/dL (0.6-1.0); GLOMERULAR FILTRATION RATE 38; GLUCOSE 198 mg/dL (70-100); POTASSIUM 3.4 mEq/L (3.5-5.2); SODIUM 140 mEq/L (134-144)
[2016-10-15 06:19] LABS: ADD DIFF? YES; ADD MORPH? NO; ADD SCAN? NO; ATYPICAL LYMPHOCYTE FLAG 10 (0-99); FRAGMENT RBC FLAG 0 (0-99); HEMATOCRIT 24.9 % (38.0-47.0); HEMOGLOBIN 8.6 g/dL (12.6-16.3); LEFT SHIFT FLG 40 (0-99); LIPEMIA HEMOLYSIS FLAG 90 (0-99); MEAN CELL HEMOGLOBIN 31.2 pg (27.9-34.1); MEAN CELL HEMOGLOBIN CONCENTR. 34.5 g/dL (32.4-36.7); MEAN CELL VOLUME 90.2 fL (81.5-99.8); MEAN PLATELET VOLUME 9.2 fL (8.7-11.7); PLATELET CLUMPS FLAG 10 (0-99); PLATELET COUNT 242 10^3/uL (150-400); RED BLOOD CELL COUNT 2.76 10^6/uL (4.18-5.33); RED CELL DISTRIBUTION WIDTH 15.4 % (11.5-15.2)
[2016-10-15 07:16] LABS: SMUDGE CELLS 1+
[2016-10-15 07:29] LABS: LARGE PLATELETS PRESENT; MICROCYTES 2+; PLATELET ESTIMATE ADEQUATE (ADEQ)
[2016-10-15 07:33] LABS: SCHISTOCYTES 1+
[2016-10-15] MEDS ORDERED: POTASSIUM CL 10 MEQ TAB PO ONE (07:36)
[2016-10-15] MEDS: SENNOSIDES/DOCUSATE SODIUM TAB PO SCH (08:43)
[2016-10-15] MEDS: PANTOPRAZOLE SODIUM 40 MG TAB PO SCH (08:43)
[2016-10-15] MEDS: amLODIPine BESYLATE 5 MG TAB PO SCH (08:44)
[2016-10-15] MEDS: CREON 24 CAP PO SCH (08:44)
[2016-10-15] MEDS: SERTRALINE HCL 50 MG TAB PO SCH (08:45)
[2016-10-15 08:50] VITALS: PULSE 81; RESP 14; TEMP 97.6
[2016-10-15] MEDS ORDERED: GLIMEPIRIDE 2 MG TAB PO SCH (09:00)
[2016-10-15] MEDS: URSODIOL 300 MG CAP PO SCH (09:16)
[2016-10-15] MEDS: HYDROmorphONE/DILAUDID 2 MG TAB PO PRN (10:12)
--- NOTE | 2016-10-15 10:15 | GDS ---
[f rep st] DISCHARGE SUMMARY DISCHARGE DIAGNOSES: 1. Acute severe pancreatitis, presenting with systemic inflammatory response syndrome, sepsis, afte r a liver biopsy, complicated by a pseudocyst, which was deemed too small to drain. 2. Acute renal failure, likely secondary to acute tubular necrosis and hypoperfusion in the setting of severe pancreatitis, requiring dialysis, now demonstrating good renal recovery with her creatini ne trending down to 1.4 from a high of 6.3. 3. Hypertension. 4. Hypokalemia. 5. Autoimmune hepatitis. 6. Normocytic anemia. 7. Depression. 8. Hypervolemic hyponatremia, resolved. 9. Metabolic acidosis, resolved. 10. Severe hypocalcemia, resolved. 11. Diabetes mellitus. IMAGING STUDIES/PROCEDURES: 1. Abdomen/pelvis CT, September 22, 2016, showed features consistent with acute pancreatitis, hepatic st eatosis, and nonspecific retroperitoneal lymph nodes, possibly reactive secondary to pancreatitis. 2. MRCP, September 24, 2016, showed no definite filling defect within the common bile duct, though filli ng defects within the dependent gallbladder were noted, possibly secondary to hemobilia and/or blood clot, as well as increasing pleural effusions, peritoneal ascites, and peripancreatic inflammatory changes, consistent with acute pancreatitis. 3. Repeat MRCP, October 09, 2016, showed a new 2 x 10 mm peripancreatic fluid collection, moderate bi lateral pleural effusions with bilateral lower lobe atelectasis, and diffuse inflammatory changes wi th mild perihepatic ascites. CONSULTANTS: 1. Dr. Rao Contreras, Gastroenterology. 2. Dr. Emmanuel Young, Wireless Technician/Pulmonology. 3. Dr. Tima Best, Nephrology. HISTORY: For details, please see dictated history and physical dated September 22, [address] Radha Tom. In brief, the patient is a 66-year-old female with a history of autoimmune hepatitis and cho langitis, followed by Dr. Carlos Calles from [facility], who presented to the emergency departm ent 1 day after a transjugular liver biopsy was performed, with abdominal pain and vomiting. Imagin g revealed acute pancreatitis, and she was admitted to the hospital for further evaluation. HOSPITAL COURSE: The patient was made n.p.o. for bowel rest and received aggressive IV fluid resusc itation. An ultrasound of the abdomen prior to her liver biopsy 2 days before admission was complet baljeet normal and showed no gallstones. MR imaging raised suspicion for possible hemobilia as a compli cation from the liver biopsy, provoking her pancreatitis. An autoimmune pancreatitis was also consi dered, although this would be more likely to be chronic. Her azathioprine was held. An IgG4 level was obtained, which was normal, making autoimmune pancreatitis less likely. She, unfortunately, dev eloped severe disease with profound hypocalcemia, with a serum calcium dropping to 4.2 and requiring frequent calcium supplementation. In addition, she developed acute renal failure, requiring hemodi alysis. Her creatinine roberto carlos to a high of 6.3. This was likely suspected to be secondary to ATN and hypoperfusion in the setting of severe pancreatitis. She has since demonstrated excellent renal re covery with good urine output, and her creatinine has trended down to 1.4 at discharge. During her acute severe illness phase, she also developed a severe metabolic acidosis, which has also normalize d at the time of discharge. She was treated with Creon during the hospitalization, though I discuss ed this with GI, and this will be discontinued at discharge. She will be continued on her Ursodiol and will follow up with Dr. Calles. Due to her acute renal failure, her lisinopril was held, and she was started on amlodipine for blood pressure control. This has since been titrated to 10 mg daily, and she will be discharged on this medication. She can follow up with her primary care physician to consider re-initiation of lisinopr il should her renal function continue to improve. With respect to her diabetes, she receives slidin g scale insulin, and her glimepiride is continued at discharge. Her hemoglobin A1c was 6.6, suggest ing overall good control. DISPOSITION: Patient is discharged home in stable condition. DISCHARGE MEDICATIONS: Please see [facility] for complete updated outpatient medication list. New me dications on discharge include amlodipine 10 mg p.o. daily. Lisinopril/HCTZ was discontinued at thi s time. She will continue her other outpatient medications, including potassium 10 mEq p.o. b.i.d. Azathioprine 50 mg p.o. daily is resumed at discharge, Ursodiol 600 mg p.o. daily, as well as 300 m g p.o. q.h.s., glimepiride 4 mg p.o. daily, Zoloft 50 mg p.o. daily, and Nexium 40 mg p.o. daily. FOLLOWUP: 1. Dr. Carlos Calles, of [facility]. 2. Dr. Garry Andersen, primary care. /[id number]/MODL
--- NOTE | 2016-10-15 11:43 | SOAPPROG ---
SOAP Progress Note Assessment/Plan: Assessment/Plan: ANISH: pt with oliguric ANISH in setting of pancreatitis, likely has ATN. She is no longer oliguric, has good UOP and Cr downtrending to 1.4 today, off HD. Her baseline Cr is 0.8-1.0. - No further need of HD. - Will arrange f/u with nephrology as outpatient. - Avoid MOM, morphine, demerol, NSAIDs, contrast, aminoglycosides, fleets, and other nephrotoxins. Hypervolemia: improved with HD, pt with good UOP now and continues to improve. Hypokalemia: K being replaced today. Subjective: No acute events overnight. Pt hoping to be discharged today. Objective: Vital Signs Temp Pulse Resp BP Pulse Ox 36.4 C 81 14 153/76 H 98 10/15/16 08:00 10/15/16 08:00 10/15/16 08:00 10/15/16 08:00 10/15/16 04:00 Laboratory Results 10/15/16 05:32 10/15/16 05:32 10/14/16 10/15/16 10/16/16 05:59 05:59 05:59 Intake Total 831 150 Output Total 3300 2450 500 Balance -2469 -2300 -500 PT 15.2 SEC (12.0-15.0) H 10/08/16 04:45 INR 1.20 (0.83-1.16) H 10/08/16 04:45 General: alert and oriented, no acute distress Eyes; EOMI, PERRL OP: CLear CV: RRR Resp: nonlabored respirations Abd: Soft, NT Ext: +1 edema BLE Neuro: CN II-XII Grossly intact, no asterixis Psych: cooperative, appropriate mood and affect ICD10 Worksheet Patient Problems: Problems Problem Status Onset Pancreatitis Acute
--- NOTE | 2016-10-15 13:55 | PDIAF ---
- Diagnosis Diagnosis: pancreatitis, ANISH Code Status: Full Code - Medication Management Discharge Medications: Medications to Continue on Transfer Potassium Chloride 10 meq PO BID 08/28/11 [Last Taken 09/20/16] Ursodiol 600 mg PO DAILY 08/28/11 [Last Taken 09/20/16] azaTHIOprine [Imuran 50 mg (*)] 50 mg PO DAILY 08/28/11 [Last Taken 09/20/16] Esomeprazole Mag Trihydrate [Nexium] 40 mg PO DAILY 09/10/16 [Last Taken ] Glimepiride [Amaryl 2 MG (*)] 4 mg PO DAILY 09/10/16 [Last Taken 09/20/16] Sertraline HCl [Zoloft 50mg (*)] 50 mg PO DAILY 09/10/16 [Last Taken 09/20/16] Ursodiol 300 mg PO HS 09/22/16 [Last Taken 09/20/16] amLODIPine BESYLATE [Norvasc 5 mg (*)] 10 mg PO DAILY #30 tab 10/15/16 [Last Taken Unknown] Discharge Medications: Refer to the Discharge Home Medication list for PRN reason. - Orders Services needed: Registered Nurse, Physical Therapy, Occupational Therapy Diet Recommendation: low fat - Labs/Radiology BMP Date: 10/17/16 - Follow Up Care Current Providers and Referrals: Carlos Calles MD [Medical Doctor] - Melvina Adkins MD [Medical Doctor] - Garry Andersen DO [Primary Care Provider] -
--- NOTE | 2016-10-18 10:26 | PQFORM ---
PHYSICIAN QUERY FORM Needs Your Response This query form is being sent to you to assure this patient record is coded properly. Please respond to the question below: ENVIRONMENTAL RESEARCH SCIENTIST QUESTION: Dear Dr. Velasco, It is stated in this patients hospitalist progress notes dated 10/03-10/14 patient had the diagnosis of 'Acute encephalopathy.' In the hospitalist progress note dated 10/01 patient was noted to be 'confused thought to be multifactorial to ANISH and pain meds.' Patient was noted to be 'somnolent' on 10/02. After study, should the diagnosis of 'Acute metabolic encephalopathy' be included in the discharge summary? Yes No Other more appropriate diagnosis Unable to determine Thank you EDGAR Soliz HIM/Coding Dept. [phone] INSTRUCTIONS FOR RESPONSE: Answer question by clicking on the "Edit Document" button. Move cursor to area below the stars. When complete, hit "Save." Click on the "Sign" button, then click "Sign" again. Type in your PIN and hit "Enter." MTDD
--- NOTE | 2016-10-23 11:18 | PQFORM ---
PHYSICIAN QUERY FORM Needs Your Response This query form is being sent to you to assure this patient record is coded properly. Please respond to the question below: LEAD WAREHOUSE ASSOCIATE QUESTION: Dear Dr. Velasco, Please document your response below for the following question. Stated in this patient hospitalist progress notes dated 10/03-10/14 patient had the diagnosis of 'Acute encephalopathy'. In the hospitalist progress note dated patient was noted to be 'confused, thought to be multifactorial to ANISH and pain meds.' Patient was also noted to be 'somnolent' on 10/02. After study, should the diagnosis of 'Acute metabolic encephalopathy' be included in the discharge summary? Yes No x Other more appropriate diagnosis ___ Unable to determine Thank you EDGAR Soliz HIM/Coding Dept. [phone] INSTRUCTIONS FOR RESPONSE: Answer question by clicking on the "Edit Document" button. Move cursor to area below the stars. When complete, hit "Save." Click on the "Sign" button, then click "Sign" again. Type in your PIN and hit "Enter." MTDD
== END 2016-10-15 13:36 | disposition home health service (06) | DRG 438 ==
LOC: FIMAGING 15:59 → F1N 17:39 → OBSVTOIN 17:56 → F2N 09-24 12:52 → F3E 10-04 14:46
PROVIDERS: ADMIT Internal Medicine; ATTEND Internal Medicine
PROC: 02HV33Z Insertion of Infusion Device into Superior Vena Cava, Percutaneous Approach (ICD-10-PCS; 2016-09-25)
PROC: 02H633Z Insertion of Infusion Device into Right Atrium, Percutaneous Approach (ICD-10-PCS; 2016-09-25)
PROC: 5A1D60Z (ICD-10-PCS; principal; 2016-09-26)
PROC: 30233N1 Transfusion of Nonautologous Red Blood Cells into Peripheral Vein, Percutaneous Approach (ICD-10-PCS; 2016-10-08)
DX: K85.90 Acute pancreatitis without necrosis or infection, unspecified (principal); A41.9 Sepsis, unspecified organism; N17.0 Acute kidney failure with tubular necrosis; K83.0 Cholangitis; K86.3 Pseudocyst of pancreas; I10 Essential (primary) hypertension; E87.6 Hypokalemia; K75.4 Autoimmune hepatitis; F32.9 Major depressive disorder, single episode, unspecified; D64.9 Anemia, unspecified; E11.9 Type 2 diabetes mellitus without complications; E83.51 Hypocalcemia; R09.02 Hypoxemia
CPT/HCPCS: 82784-90; 82947-QW; 86705-90; 97110-GP; 97116-GP; 97162-GP; 97165-GO; 97530-GO; 97530-GP; 97535-GO; A9585; C1750; C1751; G0472; G8978-GP-CJ; G8978-GP-CK; G8979-GP-CI; G8987-GO-CJ; G8987-GO-CK; G8988-GO-CI; J0610; J0692; J1170; J1644; J1650; J1815; J2060; J2405; J2543; J2997; J7500; P9016; Q9967

== ENCOUNTER → 2017-05-21 | Outpatient (CLI) | payer OTHER | LOC: CIMAGING 15:07 | PROVIDERS: ATTEND Family Medicine | DX: Z86.718 Personal history of other venous thrombosis and embolism (principal) | CPT/HCPCS: 93971-PO ==